=== PATIENT | female | born 1945 | race Caucasian/White ===

== ENCOUNTER 2017-04-13 21:51 | Observation (INO) ==
[2017-04-13 22:42] LABS: Basophils # 0.1 K/mcL (0.0-0.2); Basophils % 0.5 %; Eosinophils # 0.1 K/mcL (0.0-0.6); Eosinophils % 1.2 %; Hematocrit 45.3 % (35.3-44.9); Hemoglobin 15.4 g/dL (11.5-15.4); Immature Granulocytes % 0.4 % (0-4); Immature Platelets 2.1 % (1.1-6.1); Lymphocytes # 2.4 K/mcL (0.6-4.6); Mean Corpuscular Hemoglobin 30.7 pg (28.0-33.3); Mean Corpuscular Volume 90.2 fL (83.0-100.0); Mean Platelet Volume 8.7 fL (9.4-12.4); Monocytes % 8.5 %; Neutrophils # 7.8 K/mcL (1.6-8.9); Platelet Count 362 K/mcL (140-400); Red Blood Count 5.02 M/mcL (3.82-4.97); Segmented Neutrophils % 68.4 %
[2017-04-13 22:55] LABS: Alanine Aminotransferase 11 Units/L (0-55); Albumin 4.1 g/dL (3.5-5.0); Albumin/Globulin Ratio 1.1 (1.1-2.2); Alkaline Phosphatase 85 Units/L (38-126); Amylase 60 Units/L (25-125); Aspartate Amino Transferase 17 Units/L (5-34); BUN/Creatinine Ratio 19 (6-26); Bilirubin,Direct 0.2 mg/dL (0.0-0.5); Bilirubin,Indirect 0.3 mg/dL (0.0-1.2); Bilirubin,Total 0.5 mg/dL (0.2-1.2); Blood Urea Nitrogen 13 mg/dL (7-20); Carbon Dioxide 31 mEq/L (19-29); Chloride 98 mEq/L (98-109); Globulin 3.6 g/dL (2.4-3.5); Glucose 108 mg/dL (70-99); Lipase 35 Units/L (8-78); Osmolality,Calculated 289 (280-300); Potassium 4.4 mEq/L (3.5-4.5); Sodium 139 mEq/L (136-145); Total Protein 7.7 g/dL (6.0-8.3); eGFR For African Americans > 60 (> 60); eGFR For Non-African Americans > 60 (> 60)
[2017-04-13] MEDS ORDERED: 0.9 % Sodium Chloride 1,000 ML IVC ONE (22:58)
[2017-04-13] MEDS ORDERED: *HR* HYDROmorphone (PF) 1 MG/ML SYRINGE IVP ONE (22:58)
[2017-04-13] MEDS ORDERED: Pantoprazole 80 MG in 0.9 % Sodium Chloride 50 ML IVPB ONE (22:59)
[2017-04-13] MEDS ORDERED: Ondansetron 4 MG/2 ML VIAL IVP ONE (22:59)
[2017-04-13] MEDS ORDERED: GI Cocktail 40 ML EACH PO ONE (23:00)
[2017-04-13 23:11] LABS: Bilirubin,Urine Negative (Negative); Blood,Urine Negative (Negative); Clarity,Urine Clear (Clear); Color,Urine Yellow (Yellow); Glucose,Urine (UA) Normal (Normal); Ketones,Urine Negative (Negative); Leukocyte Esterase,Urine Small (Negative); Nitrite,Urine Negative (Negative); Protein,Urine Negative (Neg-Trace); Specific Gravity,Urine 1.018 (1.010-1.025); Urobilinogen,Urine Normal (Normal)
[2017-04-13 23:13] LABS: Bacteria,Urine None Seen per hpf (None-Few); Hyaline Casts,Urine None Seen per lpf (None-Few); Squamous Epithelial Cell,Urine Many per lpf (None-Few)
--- NOTE | 2017-04-14 02:03 | Emergency Department Note ---
Disposition Clinical Impression: Pancreatic mass Disposition: Admitted As Inpatient Condition: Fair Abdominal Pain HPI - General Chief Complaint: ED Abdominal Pain Stated Complaint: abd pain Time Seen by Provider: 04/13/17 22:43 Source: patient Mode of arrival: ambulatory Limitations: no limitations Nursing Notes Reviewed: Yes Vital Signs Reviewed: Yes - History of Present Illness HPI Narrative: Patient here for evaluation of epigastric pain, nausea, anorexia. Patient states that she has had symptoms since January when she fell and had some trauma to the epigastric region. Patient states that symptoms started to improve but they have gotten worse without resolution. She initially had improvement with ibuprofen and Aleve but has been taking ibuprofen 800 mg tablets 3 times a day as well as Aleve 5 tablets every day. Initial concern was for possible ulcer. Patient states that even the thought of food will sometimes make her stomach sick. She is been using ensure as her main source of nutrition over the last several weeks. She follows with a nurse practitioner and states that she recently had a CT scan as well as an MRI approximately a month ago. She is not sure what they were for what they found. Pain Scale: 8 - Related Data Allergies Allergy/AdvReac Type Severity Reaction Status Date / Time No Known Allergies Allergy Verified 04/13/17 22:17 Review of Systems: CONSTITUTIONAL: No weight loss, fever, chills, weakness or fatigue. HEENT: Eyes: No visual changes. Ears, Nose, Throat: No hearing loss, difficulty talking or unable to swallow. SKIN: No rash or itching. CARDIOVASCULAR: No chest pain, chest pressure or chest discomfort. No palpitations or edema. RESPIRATORY: No shortness of breath, cough or sputum. GASTROINTESTINAL: Nausea, anorexia, abdominal pain GENITOURINARY: No burning on urination or hematuria. NEUROLOGICAL: No headache, dizziness, syncope, paralysis, ataxia, numbness or tingling in the extremities. No change in bowel or bladder control. MUSCULOSKELETAL: Back pain Abdominal Pain PMH - Past Medical History Medical history: Reports: non-contributory Female Surgical History: Reports: Psychiatric history: Reports: no psych history - Social History Smoking status: Current every day smoker Alcohol use: Reports: rarely Drug use: Reports: none Physical Exam General appearance: NAD, conversant Eyes: anicteric sclerae, moist conjunctivae; PERRL HENT: Atraumatic; oropharynx clear with moist mucous membranes and no mucosal ulcerations Neck: Normal inspection; Trachea midline; FROM, supple Lungs: CTA, with normal respiratory effort and no intercostal retractions CV: RRR, no MRGs Abdomen: Soft, epigastric tenderness with no rebound or guarding Extremities: No peripheral edema or extremity lymphadenopathy Skin: Normal temperature; no rash, ulcers or lesions Psych: Appropriate mood and affect Neuro: alert and oriented to person, place and time - General Limitations: no limitations General appearance: alert Course - Reevaluation(s) Reevaluation #1: CT scan ordered to further evaluate possible perforated viscus as she has a clinical history concerning for peptic ulcer and diffuse abdominal pain with radiation to the back and worse with deep breaths. CT scan is now concerning for a new mass within the pancreas that could be related to atypical pancreatitis versus neoplastic process. She also has a lesion within the liver that MRI related to possible hemangioma. She has got 10 mm lung nodule with adenopathy. Patient overall concern for possible metastatic process. Patient will be brought in for further evaluation. - Consultations Consultation #1: HospitalistSaul, accepts Vital Signs Temperature 97.9 F 04/13/17 22:17 Pulse Rate 85 04/13/17 22:17 Respiratory Rate 16 04/13/17 22:17 Blood Pressure 116/64 04/13/17 22:17 O2 Sat by Pulse Oximetry 94 04/13/17 22:17 Temperature 97.9 F 04/13/17 22:17 Pulse Rate 72 04/14/17 03:03 Respiratory Rate 16 04/14/17 03:03 Blood Pressure 110/59 04/14/17 03:03 O2 Sat by Pulse Oximetry 94 04/14/17 03:03 Oxygen Delivery Oxygen Delivery Room Air Abdominal Pain - Lab Data Result diagrams: 04/13/17 22:35 04/13/17 22:35 Lab Results 04/13/17 04/13/17 04/13/17 Range/Units 22:35 22:35 22:58 WBC 11.4 H (4.3-11.1) K/mcL RBC 5.02 H (3.82-4.97) M/mcL Hgb 15.4 (11.5-15.4) g/dL Hct 45.3 H (35.3-44.9) % MCV 90.2 (83.0-100.0) fL MCH 30.7 (28.0-33.3) pg MCHC 34.0 (31.6-35.5) g/dL RDW 13.0 (11.5-14.5) % Plt Count 362 (140-400) K/mcL MPV 8.7 L (9.4-12.4) fL Immature Gran % 0.4 (0-4) % Seg Neutrophils % 68.4 % Lymphocytes % 21.0 % Monocytes % 8.5 % Eosinophils % 1.2 % Basophils % 0.5 % Neutrophils # 7.8 (1.6-8.9) K/mcL Lymphocytes # 2.4 (0.6-4.6) K/mcL Monocytes # 1.0 (0.0-1.3) K/mcL Eosinophils # 0.1 (0.0-0.6) K/mcL Basophils # 0.1 (0.0-0.2) K/mcL Immature Plt Fraction 2.1 (1.1-6.1) % Sodium 139 (136-145) mEq/L Potassium 4.4 (3.5-4.5) mEq/L Chloride 98 (98-109) mEq/L Carbon Dioxide 31 H (19-29) mEq/L BUN 13 (7-20) mg/dL Creatinine 0.70 (0.57-1.11) mg/dL Est GFR ( Amer) > 60 (> 60) Est GFR (Non-Af Amer) > 60 (> 60) BUN/Creatinine Ratio 19 (6-26) Glucose 108 H (70-99) mg/dL Calculated Osmolality 289 (280-300) Calcium 11.0 H (8.6-10.8) mg/dL Total Bilirubin 0.5 (0.2-1.2) mg/dL Direct Bilirubin 0.2 (0.0-0.5) mg/dL Indirect Bilirubin 0.3 (0.0-1.2) mg/dL AST 17 (5-34) Units/L ALT 11 (0-55) Units/L Alkaline Phosphatase 85 (38-126) Units/L Serum Total Protein 7.7 (6.0-8.3) g/dL Albumin 4.1 (3.5-5.0) g/dL Globulin 3.6 H (2.4-3.5) g/dL Albumin/Globulin Ratio 1.1 (1.1-2.2) Amylase 60 (25-125) Units/L Lipase 35 (8-78) Units/L Urine Color Yellow (Yellow) Urine Clarity Clear (Clear) Urine pH 6.0 (5.0-8.0) pH Units Ur Specific [place] 1.018 (1.010-1.025) Urine Protein Negative (Neg-Trace) mg/dL Urine Glucose (UA) Normal (Normal) mg/dL Urine Ketones Negative (Negative) mg/dL Urine Blood Negative (Negative) Urine Nitrite Negative (Negative) Urine Bilirubin Negative (Negative) Urine Urobilinogen Normal (Normal) mg/dL Ur Leukocyte Esterase Small H (Negative) Urine Microscopic RBC 3-5 H (0-3) per hpf Urine Microscopic WBC 5-15 H (0-3) per hpf Ur Squamous Epith Cells Many H (None-Few) per lpf Urine Bacteria None Seen (None-Few) per hpf Hyaline Casts None Seen (None-Few) per lpf Ur Culture Indicated? YES A (NO) Attestation Statement - Attestation Attestation: I, Reynold Aguila MD, personally evaluated this patient and discussed their management with the resident physician. I reviewed the resident's note and agree with the documented findings, medical decision making, and plan of care. 71-year-old female presents to the emergency department with a complaint of some epigastric abdominal pain which is been going on for a few months but worse over the past week. Some nausea and a few episodes of vomiting. No fever. No diarrhea. No melena, hematemesis, or hematochezia. No urinary symptoms. On examination patient is a well-developed thin elderly female in no acute distress. She is alert and oriented 3. There is no cyanosis or diaphoresis. Smells very strongly of cigarette smoke. Breath sounds are decreased but equal bilaterally. There are a few scattered bilateral expiratory wheezes. Heart regular rate and rhythm. Abdomen soft with normal bowel sounds. Mild to moderate epigastric tenderness with no guarding or rebound tenderness. Labs reviewed. CT of abdomen and pelvis shows a new mass in the body and tail of the pancreas as well as a new lesion in the liver suspicious for metastatic disease. Also some nodules in lung bases suspicious for metastatic disease. The hospitalist, Dr. Choudhury, was consulted and accepted admission of the patient.
[2017-04-14] MEDS ORDERED: *HR* HYDROmorphone (PF) 1 MG/ML SYRINGE IVP ONE (03:39)
[2017-04-14] MEDS ORDERED: Naloxone 0.4 MG/ML INJ IVP PRN (03:47)
[2017-04-14] MEDS ORDERED: *HR* Dextrose 50 % in Water (Syg) 50 ML SYRINGE IVP PRN (03:53)
[2017-04-14] MEDS ORDERED: Dextrose Gel 15 GM PO PRN ×2 (03:53)
[2017-04-14] MEDS ORDERED: D5% in Water 1,000 ML IVC PRN (03:53)
--- NOTE | 2017-04-14 05:05 | Internal Med History&Physical ---
Date of Encounter: 04/14/17 Time of Encounter: 04:30 Assessment and Plan (1) Pancreatic mass Current visit: Yes Status: Acute Newly diagnosed ill-defined pancreatic mass seen on CT abdomen - possible pancreatitis - causing nausea and vomiting and abdominal pain Concern for metastatic disease to the liver and lungs Continue IV fluids, nothing by mouth Lipase 35 CT chest to further evaluate metastasis to the lung Oncology consult (2) UTI (urinary tract infection) Current visit: Yes Status: Acute Empiric IV Rocephin, cultures pending Qualifiers: Urinary tract infection type: acute cystitis Hematuria presence: without hematuria Qualified Code(s): N30.00 - Acute cystitis without hematuria (3) Tobacco abuse Current visit: Yes Status: Acute Smokes about half-pack cigarettes a day, counseled about cessation Nicotine patch (4) DVT prophylaxis Current visit: Yes Status: Acute Continue heparin subcutaneous Internal Medicine - H&P: HPI Chief complaint: Abdominal pain Admitted From: Emergency Dept History of present illness: Ms. Canas is a 71 year old female with no significant past medical history. She presents to the ED with complaints of abdominal pain and nausea for about 2 days ago. Patient states symptoms of abdominal pain have been going on intermittently for about 1 month. Over the past 2 days abdominal pain and nausea have worsened. Patient states her PO intake is very poor and she is not able to keep anything down. She seems to have had several episodes of vomiting as well. Patient denies diarrhea, states that she is constipated. Denies chest pain and denies shortness of breath denies palpitations denies headache or lightheadedness or cough. She states abnormal pain is mainly in the epigastric region and dull and cramping at times. Does not radiate. He rates the pain about 5 out of 10. No other associated symptoms. She does mention that in January she had a fall and had some trauma to the epigastric region and symptoms have been going on probably since then. Symptoms are worse with food intake. No alleviating factors. She had an MRI of the abdomen done about a month ago which showed a liver hemangioma. Today's CT scan of the abdomen shows a ill-defined mass of the pancreatic body and tail. There is also concern for a vague hypodense lesion of the right hepatic dome which could be metastatic. There are also lung nodules at the base which may also represent metastatic disease. On examination patient is awake and alert. Not in any distress. She is in discomfort due to nausea and abdominal pain. She is able to provide HISTORY. No family members at bedside. Patient has been explained about her condition and plan Of care. She understood and agreed, no unanswered questions. Patient is being admitted for further evaluation of pancreatic mass and possible metastatic disease. CODE STATUS full code. Past Med Surg Social Fam HX - Past Medical History Medical history: non-contributory Psychiatric history: no psych history - Past Surgical History Surgical History: - Social History Smoking Status: Current every day smoker Smokeless Tobacco Status: No Alcohol use: rarely Drug use: none Internal Medicine - H&P: Meds Allergies No Known Allergies Allergy (Verified 04/13/17 22:17) All Systems PM: A 10-system review of systems was performed and is negative for pertinent findings except as documented above in the HPI. - Constitutional Constitutional: fatigue, weakness, no fever(s) - EENT Eyes: no blurry vision, no loss of vision - Cardiovascular Cardiovascular ROS IM: no chest pain, no diaphoresis, no dyspnea, no dyspnea on exertion, no lightheadedness, no syncope - Respiratory Respiratory: no cough, no dyspnea, no dyspnea on exertion, no wheezing, no chest congestion - Gastrointestinal Gastrointestinal: abdominal pain, bloating, constipation, cramping, nausea, vomiting, no diarrhea, no hematochezia - Genitourinary Genitourinary: no dysuria - Musculoskeletal Musculoskeletal ROS IM: no arthralgias - Neurological Neurological ROS: no abnormal gait, no abnormal speech, no dizziness, no focal weakness, no numbness, no tingling - Constitutional Vitals: Temp Pulse Resp BP Pulse Ox 97.9 F 72 16 107/59 94 04/13/17 22:17 04/14/17 03:03 04/14/17 03:44 04/14/17 03:44 04/14/17 03:03 General appearance: Present: cachectic, A&O X 3, pleasant, no acute distress, underweight, answers questions appropriately - Head Head exam: Present: atraumatic - Eye Eye exam: Present: EOMI - ENT ENT exam: Present: mucous membranes dry - Neck Neck exam general surgery: Present: supple - Respiratory Respiratory exam: Present: CTAB. Absent: rales, rhonchi, wheezes, tachypnea - Cardiovascular Cardiovascular exam: Present: RRR, +S1, +S2 - GI/Abdominal GI/Abdominal exam: Present: soft, tenderness (Mild epigastric), no peritoneal signs. Absent: firm, guarding - Extremities Exam Extremities exam: Present: radial pulses palpable and symetrical. Absent: cyanotic, pedal edema, tenderness - Neurological Exam Neurological exam: Present: alert, oriented X3, no focal deficits Internal Med - H&P Results - Labs CBC & Chem 7: 04/13/17 22:35 04/13/17 22:35
[2017-04-14 05:39] LABS: Basophils % 0.6 %; Eosinophils # 0.2 K/mcL (0.0-0.6); Eosinophils % 2.1 %; Hematocrit 38.5 % (35.3-44.9); Hemoglobin 13.1 g/dL (11.5-15.4); Immature Granulocytes % 0.1 % (0-4); Lymphocytes # 2.7 K/mcL (0.6-4.6); Lymphocytes % 38.2 %; Mean Corpuscular Hemoglobin 30.8 pg (28.0-33.3); Mean Corpuscular Volume 90.6 fL (83.0-100.0); Mean Platelet Volume 9.4 fL (9.4-12.4); Monocytes # 0.7 K/mcL (0.0-1.3); Monocytes % 10.1 %; Neutrophils # 3.4 K/mcL (1.6-8.9); Platelet Count 310 K/mcL (140-400); Red Blood Count 4.25 M/mcL (3.82-4.97); Red Cell Distribution Width 13.2 % (11.5-14.5); Segmented Neutrophils % 48.9 %
[2017-04-14 05:40] LABS: INR 1.1; Prothrombin Time 11.9 Seconds (9.4-12.1)
[2017-04-14 05:47] LABS: Hemoglobin A1C 5.8 %
[2017-04-14 05:56] LABS: Alanine Aminotransferase 12 Units/L (0-55); Albumin 3.2 g/dL (3.5-5.0); Albumin/Globulin Ratio 1.1 (1.1-2.2); Alkaline Phosphatase 70 Units/L (38-126); Aspartate Amino Transferase 20 Units/L (5-34); BUN/Creatinine Ratio 19 (6-26); Bilirubin,Total 0.5 mg/dL (0.2-1.2); Blood Urea Nitrogen 12 mg/dL (7-20); Calcium 8.7 mg/dL (8.6-10.8); Carbon Dioxide 29 mEq/L (19-29); Chloride 104 mEq/L (98-109); Globulin 2.8 g/dL (2.4-3.5); Glucose 123 mg/dL (70-99); Magnesium 1.8 mg/dL (1.6-2.6); Osmolality,Calculated 291 (280-300); Potassium 3.9 mEq/L (3.5-4.5); Sodium 140 mEq/L (136-145); eGFR For African Americans > 60 (> 60); eGFR For Non-African Americans > 60 (> 60)
[2017-04-14] MEDS: 0.9 % Sodium Chloride 1,000 ML IVC SCH ×2 (06:27→22:12)
[2017-04-14] MEDS: *HR* Heparin 5,000 UNIT/ML VIAL SQ SCH ×2 (06:27→17:54)
[2017-04-14] MEDS: Insulin LISPRO 300 UNITS/3 ML VIAL SQ SCH ×4 (06:29→23:52)
[2017-04-14] MEDS: Famotidine 20 MG TABLET PO SCH ×2 (08:09→21:09)
[2017-04-14] MEDS: Nicotine 21 MG PATCH.TD24 TD SCH (08:11)
--- NOTE | 2017-04-14 09:59 | Internal Med Progress Note ---
Date of Encounter: 04/14/17 Time of Encounter: 09:57 - Assessment and plan (1) Abdominal pain Current Visit: Yes Status: Acute Qualifiers: Qualified Code(s): R10.9 - Unspecified abdominal pain (2) Pulmonary nodules/lesions, multiple Current Visit: Yes Status: Acute (3) Pancreatic mass Current Visit: Yes Status: Acute (4) DVT prophylaxis Current Visit: Yes Status: Acute (5) Nausea & vomiting Current Visit: Yes Status: Acute Qualifiers: Vomiting type: unspecified Vomiting Intractability: non-intractable Qualified Code(s): R11.2 - Nausea with vomiting, unspecified (6) UTI (urinary tract infection) Current Visit: Yes Status: Acute Qualifiers: Urinary tract infection type: acute cystitis Hematuria presence: without hematuria Qualified Code(s): N30.00 - Acute cystitis without hematuria (7) Tobacco abuse Current Visit: Yes Status: Acute - Subjective Interval history: Ms. Corinne Canas is a 71-year-old female with past medical history significant for smoking came to ER with 1-2 month olds recurrent symptoms of abdominal pain and nausea and more than 10% of body weight loss unintentionally. A CT chest done in ER showed possible lung pancreatic and liver suspected lesion. She previously had MRI of the abdomen which showed multiple hepatic cyst largest being 2.4 and also a new pancreatic mass for 0.2 6.1 cm which is surrounding the splenic vein and is in close proximity with the artery. There is a concern for metastatic disease. I have ordered a contrast CT chest abdomen and pelvis. Oncology consult is already pending. There was a concern if pancreatic lesion and also due to peripancreatic inflammation with this pancreatitis but her amylase and lipase are absolutely normal. Her UA showed leukocyte positive cultures are pending and she is on IV Rocephin. Oncology has consulted us and follow nephrology for possible pancreatic biopsy. - Constitutional Vitals: Temp Pulse Resp BP Pulse Ox 97.7 F 69 14 103/67 97 04/14/17 06:38 04/14/17 06:38 04/14/17 06:38 04/14/17 06:38 04/14/17 06:38 General appearance: Present: cachectic, A&O X 3, pleasant, no acute distress, underweight, answers questions appropriately - Head Head exam: Present: atraumatic, normocephalic - Eye Eye exam: Present: PERRL, conjuntiva pink, sclera anicteric Pupils: Present: PERRL - Neck Neck exam general surgery: Present: supple, trachea midline. Absent: lymphadenopathy - Respiratory Respiratory exam: Present: CTAB. Absent: accessory muscle use, rales, rhonchi, wheezes - Cardiovascular Cardiovascular exam: Present: RRR, +S1, +S2. Absent: diastolic murmur, gallop, rubs, systolic murmur - GI/Abdominal GI/Abdominal exam: Present: normal bowel sounds, soft, no peritoneal signs. Absent: distended, tenderness - Extremities Exam Extremities exam: Present: warm, radial pulses palpable and symetrical. Absent : calf tenderness, cyanotic, pedal edema - Neurological Exam Neurological exam: Present: CN II-XII intact, oriented X3, no focal deficits. Absent: pronater drift, facial droop, speech deficit - Skin Skin exam: Present: dry, intact Internal Medicine: Result - Labs CBC & Chem 7: 04/14/17 05:05 04/14/17 05:05 Labs: Short CBC 04/14/17 Range/Units 05:05 WBC 7.0 (4.3-11.1) K/mcL Hgb 13.1 D (11.5-15.4) g/dL Hct 38.5 (35.3-44.9) % Plt Count 310 (140-400) K/mcL Neutrophils # 3.4 (1.6-8.9) K/mcL BMP 04/14/17 05:05 Sodium 140 Potassium 3.9 Chloride 104 Carbon Dioxide 29 BUN 12 Creatinine 0.62 Glucose 123 H Calcium 8.7 D Liver Function 04/14/17 Range/Units 05:05 Total Bilirubin 0.5 (0.2-1.2) mg/dL AST 20 (5-34) Units/L ALT 12 (0-55) Units/L Alkaline Phosphatase 70 (38-126) Units/L Albumin 3.2 L D (3.5-5.0) g/dL - ABG Interpretation ABG results: PT/INR, D-dimer PT 11.9 Seconds (9.4-12.1) 04/14/17 05:05 - Impressions Impressions Chest CT 04/14/17 05:11 IMPRESSION: 1. Multiple pulmonary nodules are again demonstrated. Metastatic disease is most likely though inflammatory and infectious nodules could also be considered as these are poorly defined, an unusual finding in pulmonary metastases (unless hemorrhagic). 2. Left-sided thyroid nodule. Thyroid ultrasound could be considered for further evaluation in this patient with suspected metastatic pancreatic carcinoma. 3. Emphysema. D/ / Marc Garcia MD / Marc Garcia MD Interpreting Provider: Marc Garcai MD Consult Discharge Plan - Plan Referrals: NO,PCP [Primary Care Provider] -
--- NOTE | 2017-04-14 15:42 | Electrocardiograph Report ---
[place] [id number] Test Date: 2017-04-14 Pat Name: Corinne Canas Department: 115 Room: 3A Gender: F [employer]: 3A : 1945 Requested By: Ramon Dowd Order Number: [id number] Reading MD: Alek Pizarro MD Measurements Intervals [place] Rate: 60 P: 81 [place]: 158 QRS: 67 QRSD: 73 T: 72 QT: 405 QTc: 407 Interpretive Statements SINUS RHYTHM Electronically Signed On 04-14-2017 15:41:03 EDT by Alek Pizarro MD
[2017-04-14] MEDS: *HR* HYDROcodone/Acet 5/325 mg TABLET PO PRN (16:48)
--- NOTE | 2017-04-14 17:05 | Oncology Inp Consult Note ---
<Lindsay Walters E - Last Filed: 04/14/17 17:17> Date of Encounter: 04/14/17 Time of Encounter: 14:00 Assessment and Plan (1) Pancreatic mass Status: Acute Assessment and plan: Should be noted that the pancreas was normal in January 2017. At that time she did have an elevated lipase. We will order a CA-19-9, pancreatic tumor marker. We will also ask for consultation with regarding evaluation with possible biospy. (2) Tobacco abuse Status: Acute Assessment and plan: discussed risk of continued smoking, patient is not interested in cessation. - Data of Consult Patient: new to practice Consult date: 04/14/17 Requesting Physician: Jase Pryor MD Primary Care Provider: PCP NO - Consult Narrative Reason for consult: pancreatic mass History of present illness: Ms. Canas is a 71 year old female who recently presented to the [place] ED with epigastric pain, nausea and anorexia. SHe states this pain has been present for over 2 months, off and on but has recently gotten worse. SHe states pain started when she fell on a laundry basket while going up steps. The bascket hit just below breast. She reports that this pain radiates for the upper back to epigastric area or from the epigastric area to the upper back. Eating causes pain to increase. Vomiting helps relieve pain. She was seen by PCP in January of 2017. January 23, 2017, indicated age-indeterminate compression fracture involving these. Plate of L5. Indeterminate hepatic lesions with an MRI of the abdomen being recommended using the hemangioma protocol. The 2016, MRI of the abdomen with and without contrast indicated multiple nonenhancing liver lesions likely only rate representing cysts. The largest was located in segment for the liver and measured 2.2 cm. The gallbladder, pancreas, kidneys and adrenal glands were within normal limits. There was an enhancing 1.5 cm lesion in segment for the liver favorable for hemangioma. Most recently on 04/14/2017 CAT scan of the abdomen and pelvis indicated stable 1.7 cm segment 4 lesion which was felt to represent hemangioma on a previous MRI. A new 2.4 cm ill-defined vague hypodense lesion in the right hepatic dome. Also an ill-defined hypodense mass measuring 4.2 x 6.1 cm involving the pancreatic body and tail. This may represent atypical pancreatitis but is concerning for pancreatic adenocarcinoma. 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 There was also moderate peripancreatic inflammation which may represent superimposed pancreatitis. During this hospitalization the patient did have an amylase that was normal at 60 and a lipase normal at 35. She did have these tests also in January when her symptom biology started that time her amylase was 122 and lipase was 289. Patient is a smoker she smoked 1 pack a day for 30+ years and does not desire to stop smoking. She has no significant past medical history she does not take medications. At this time she states her diet is made up of Ensure 3-4 cans a day. She also reports that she has lost about 13 pounds unintentional. Past Med Surg Social Fam HX - Past Medical History Medical history: non-contributory, other (Denies having health problems other than seasonal allergies.) Psychiatric history: no psych history - Past Surgical History Surgical History: (Rate) - Social History Smoking Status: Current every day smoker Packs per day: 1/2 pack per day Smokeless Tobacco Status: No Alcohol use: rarely Drug use: none Occupational status: retired Current living situation: Home - Family History Mother Living Status: Age at : 76 Cause of : Heart Hx Family Cardiac Disorders: Yes (Heart Attack) Hx Family Endocrine Disorder: Yes (DM) Father Living Status: Age at : 77 Cause of : Kidney Disease - Additional Family History Additional family history: brother bone cancer Medications and Allergies Albuterol Neb [Proventil Neb] 2.5 mg IH TID PRN 04/14/17 [History] Ibuprofen [Motrin] 800 mg PO Q8HR PRN 04/14/17 [History] Ondansetron HCl [Zofran] 4 mg PO Q4-6H PRN 04/14/17 [History] Allergies No Known Allergies Allergy (Verified 04/13/17 22:17) All systems: reviewed and no additional remarkable complaints except as stated Constitutional: Present: weight loss Gastrointestinal: Present: abdominal pain, bloating, constipation, nausea, vomiting Musculoskeletal: Present: back pain Oncology - Exam - Constitutional Vitals: Temp Pulse Resp BP Pulse Ox 97.9 F 59 14 127/77 97 04/14/17 15:01 04/14/17 15:01 04/14/17 15:01 04/14/17 15:01 04/14/17 15:01 General appearance: cooperative, no acute distress - Head Head exam: Present: normal inspection - ENT ENT exam: Present: mucous membranes moist - Neck Neck exam: Present: normal inspection - Respiratory Respiratory exam: Present: CTAB - Cardiovascular Cardiovascular exam: Present: RRR - GI/Abdominal GI/Abdominal exam: Present: guarding, normal bowel sounds, soft Additional comments: Epigastric tenderness - Extremities Exam Extremities exam: Present: normal inspection - Back Exam Back exam: Present: normal inspection, vertebral tenderness - Psychiatric Psychiatric exam: Present: normal affect, normal mood - Skin Skin exam: Present: dry, intact, normal color Oncology - Results - Labs Labs: Short CBC 04/14/17 Range/Units 05:05 WBC 7.0 (4.3-11.1) K/mcL Hgb 13.1 D (11.5-15.4) g/dL Hct 38.5 (35.3-44.9) % Plt Count 310 (140-400) K/mcL Neutrophils # 3.4 (1.6-8.9) K/mcL BMP 04/14/17 05:05 Sodium 140 Potassium 3.9 Chloride 104 Carbon Dioxide 29 BUN 12 Creatinine 0.62 Glucose 123 H Calcium 8.7 D Liver Function 04/14/17 Range/Units 05:05 Total Bilirubin 0.5 (0.2-1.2) mg/dL AST 20 (5-34) Units/L ALT 12 (0-55) Units/L Alkaline Phosphatase 70 (38-126) Units/L Albumin 3.2 L D (3.5-5.0) g/dL Consult Discharge Plan - Plan Referrals: Kelsea Kauffman, PIPE COVERER AND INSULATOR [Advanced Practice Nurse] - <Don Robles S - Last Filed: 04/15/17 19:08> Date of Encounter: 04/15/17 - Data of Consult Requesting Physician: Tammy Reed MD Primary Care Provider: PCP NO - Consult Narrative History of present illness: Ms. Canas is a 71 year old female Oncology - Exam - Constitutional Vitals: Temp Pulse Resp BP Pulse Ox 98.7 F 78 15 119/67 98 04/15/17 15:56 04/15/17 15:56 04/15/17 15:56 04/15/17 15:56 04/15/17 15:56 Oncology - Results - Labs Labs: Short CBC 04/15/17 Range/Units 06:42 WBC 6.2 (4.3-11.1) K/mcL Hgb 12.6 (11.5-15.4) g/dL Hct 37.9 (35.3-44.9) % Plt Count 261 (140-400) K/mcL Neutrophils # 3.5 (1.6-8.9) K/mcL BMP 04/15/17 06:42 Sodium 140 Potassium 3.6 Chloride 106 Carbon Dioxide 26 BUN 12 Creatinine 0.58 Glucose 77 Calcium 8.4 L Liver Function 04/15/17 Range/Units 06:42 Total Bilirubin 0.4 (0.2-1.2) mg/dL AST 18 (5-34) Units/L ALT 11 (0-55) Units/L Alkaline Phosphatase 69 (38-126) Units/L Albumin 3.1 L (3.5-5.0) g/dL - Attending Attestation I examined this patient and my medical decision-making was reviewed with the Advanced Practice Nurse. I agree with the documented findings, disposition and treatment plan as described except to the extent set forth below. 1. CAT scan March 2017 showed ill-defined 4.2 cm mass hypodense body/tail of the pancreas. This was not seen by MRI liver January 2017. Also pancreatic ductal dilatation. Her lipase was elevated at 280 01/26/2017 but currently normal Also hepatic dome hemangioma about 1.7 cm. Recommend EUS biopsy to assess the hypodense mass. CA 19-9 pending. Further treatment recommendation after the biopsy
[2017-04-15] MEDS: *HR* HYDROcodone/Acet 5/325 mg TABLET PO PRN ×4 (01:36→22:13)
[2017-04-15] MEDS: Insulin LISPRO 300 UNITS/3 ML VIAL SQ SCH ×3 (05:41→17:51)
[2017-04-15] MEDS: *HR* Heparin 5,000 UNIT/ML VIAL SQ SCH ×2 (05:43→17:49)
[2017-04-15 07:07] LABS: Basophils % 0.5 %; Eosinophils # 0.1 K/mcL (0.0-0.6); Eosinophils % 1.1 %; Hematocrit 37.9 % (35.3-44.9); Hemoglobin 12.6 g/dL (11.5-15.4); Immature Granulocytes % 0.2 % (0-4); Mean Corpuscular HGB Conc 33.2 g/dL (31.6-35.5); Mean Corpuscular Hemoglobin 30.4 pg (28.0-33.3); Mean Corpuscular Volume 91.3 fL (83.0-100.0); Mean Platelet Volume 9.3 fL (9.4-12.4); Monocytes # 0.5 K/mcL (0.0-1.3); Monocytes % 8.1 %; Neutrophils # 3.5 K/mcL (1.6-8.9); Platelet Count 261 K/mcL (140-400); Red Blood Count 4.15 M/mcL (3.82-4.97); Segmented Neutrophils % 57.1 %
[2017-04-15 07:22] LABS: Alanine Aminotransferase 11 Units/L (0-55); Albumin 3.1 g/dL (3.5-5.0); Albumin/Globulin Ratio 1.1 (1.1-2.2); Alkaline Phosphatase 69 Units/L (38-126); Aspartate Amino Transferase 18 Units/L (5-34); BUN/Creatinine Ratio 21 (6-26); Bilirubin,Total 0.4 mg/dL (0.2-1.2); Blood Urea Nitrogen 12 mg/dL (7-20); Calcium 8.4 mg/dL (8.6-10.8); Carbon Dioxide 26 mEq/L (19-29); Chloride 106 mEq/L (98-109); Globulin 2.7 g/dL (2.4-3.5); Glucose 77 mg/dL (70-99); Osmolality,Calculated 289 (280-300); Potassium 3.6 mEq/L (3.5-4.5); Sodium 140 mEq/L (136-145); Total Protein 5.8 g/dL (6.0-8.3); eGFR For African Americans > 60 (> 60); eGFR For Non-African Americans > 60 (> 60)
[2017-04-15] MEDS: Nicotine 21 MG PATCH.TD24 TD SCH (08:21)
[2017-04-15] MEDS: Famotidine 20 MG TABLET PO SCH ×2 (08:21→20:45)
--- NOTE | 2017-04-15 14:15 | Gastroenterology Consult Note ---
<EstevezPorfirio Houston - Last Filed: 04/15/17 14:13> Date of Encounter: 04/15/17 Time of Encounter: 11:50 - Assessment and plan (1) Pancreatic mass Current Visit: Yes Status: Acute Assessment and plan: CT A/P 01/23/2017 with indeterminate hepatic lesions. MRI 01/27/2017 showed a liver hemangioma. CT A/P on admission shows a ill-defined mass of the pancreatic body and tail, concern for a vague hypodense lesion of the right hepatic dome which could be metastatic, there are also lung nodules at the base which may also represent metastatic disease. Plan for EUS today with possible biopsy. Keep NPO. CA 19-9 pending. (2) Abdominal pain Current Visit: Yes Status: Acute Assessment and plan: Secondary to pancreatic mass. Qualifiers: Qualified Code(s): R10.9 - Unspecified abdominal pain - Time Spent With Patient Total time spent is greater than 50% in coordination of care (as documented) at patient's floor/unit and/or counseling patient: GI History of Present Illness - Data of Consult Patient: new to practice Consult date: 04/15/17 Requesting Physician: Tammy Reed MD - Consult Narrative Reason for consult: Pancreatic mass History of present illness: Ms. Canas is a 71 year old female with no significant PMHx presented to the ED with c/o epigastric abdominal pain, nausea, and vomiting for 2 days. Patient states symptoms of abdominal pain have been going on intermittently for about 1 month. Over the past 2 days abdominal pain and nausea have worsened. CT A/P 01/23 with indeterminate hepatic lesions. MRI 01/27/2017 showed a liver hemangioma. CT A/P on admission shows a ill-defined mass of the pancreatic body and tail, concern for a vague hypodense lesion of the right hepatic dome which could be metastatic, there are also lung nodules at the base which may also represent metastatic disease. She denies fever, chills, chest pain, shortness of breath, melena, or hematochezia. Procedures: None NSAIDs: Ibuprofen Anticoagulation: None Past Med Surg Social Fam HX - Past Medical History Medical history: non-contributory, other (Denies having health problems other than seasonal allergies.) Psychiatric history: no psych history - Past Surgical History Surgical History: (Rate) - Social History Smoking Status: Current every day smoker Packs per day: 1/2 pack per day Smokeless Tobacco Status: No Alcohol use: rarely Drug use: none - Family History Mother Living Status: Age at : 76 Cause of : Heart Hx Family Cardiac Disorders: Yes (Heart Attack) Hx Family Endocrine Disorder: Yes (DM) Father Living Status: Age at : 77 Cause of : Kidney Disease - Gastrointestinal Gastrointestinal: Present: as per HPI - Constitutional Constitutional: as per HPI - EENT Eyes: as per HPI Ears: Present: as per HPI Nose, mouth and throat: Present: as per HPI - Cardiovascular Cardiovascular ROS: Present: as per HPI - Respiratory Respiratory IM: Present: as per HPI - Genitourinary Genitourinary: Absent: change in color, Urinary frequency - Neurological ROS Neurological GI: Present: as per HPI - Hematologic/Lymphatic Hematologic/Lymphatic pediatric: Present: as per HPI - Musculoskeletal Musculoskeletal ROS GI: Present: as per HPI - Integumentary Integumentary GI: Present: as per HPI - Psychiatric ROS Psychiatric GI: Present: as per HPI - Endocrine Endocrine IM: Present: as per HPI - Constitutional Vitals: Temp Pulse Resp BP Pulse Ox 98.2 F 68 14 108/63 98 04/15/17 11:08 04/15/17 11:08 04/15/17 11:08 04/15/17 11:08 04/15/17 11:08 General appearance: Present: cooperative, A&O X 3, no acute distress, answers questions appropriately - Head Head exam: Present: atraumatic, normocephalic - Eye Eye exam: Present: normal appearance, sclera anicteric - ENT ENT exam: Present: mucous membranes dry - Neck Neck exam general surgery: Present: normal inspection, trachea midline - Respiratory Respiratory exam: Present: CTAB. Absent: rales, rhonchi - Cardiovascular Cardiovascular exam: Present: RRR, +S1, +S2 - GI/Abdominal GI/Abdominal exam: Present: guarding, soft, tenderness (Epigastric), no peritoneal signs. Absent: distended, firm - Rectal Rectal exam: Present: deferred - Extremities Exam Extremities exam: Present: warm - Neurological Exam Neurological exam: Present: no focal deficits - Psychiatric Psychiatric exam: Present: normal affect, normal mood - Skin Skin exam: Present: dry, intact, normal color, warm Results - Labs CBC & Chem 7: 04/15/17 06:42 04/15/17 06:42 Labs: Last Result Calcium 8.4 mg/dL (8.6-10.8) L 04/15/17 06:42 Entire Visit Hgb 12.6 g/dL (11.5-15.4) 04/15/17 06:42 Hct 37.9 % (35.3-44.9) 04/15/17 06:42 PT 11.9 Seconds (9.4-12.1) 04/14/17 05:05 Total Bilirubin 0.4 mg/dL (0.2-1.2) 04/15/17 06:42 AST 18 Units/L (5-34) 04/15/17 06:42 ALT 11 Units/L (0-55) 04/15/17 06:42 Amylase 60 Units/L (25-125) 04/13/17 22:35 Lipase 35 Units/L (8-78) 04/13/17 22:35 - ABG ABG results: PT/INR, D-dimer PT 11.9 Seconds (9.4-12.1) 04/14/17 05:05 Consult Discharge Plan - Plan Referrals: Kelsea Kauffman, SOLUTION MIXER [Advanced Practice Nurse] - <Da Sanches - Last Filed: 04/15/17 18:51> Date of Encounter: 04/15/17 Time of Encounter: 14:00 - Time Spent With Patient Total time spent is greater than 50% in coordination of care (as documented) at patient's floor/unit and/or counseling patient: GI History of Present Illness - Data of Consult Requesting Physician: Tammy Reed MD - Consult Narrative History of present illness: Ms. Canas is a 71 year old female - Constitutional Vitals: Temp Pulse Resp BP Pulse Ox 98.7 F 78 15 119/67 98 04/15/17 15:56 04/15/17 15:56 04/15/17 15:56 04/15/17 15:56 04/15/17 15:56 Results - Labs CBC & Chem 7: 04/15/17 06:42 04/15/17 06:42 Labs: Last Result Calcium 8.4 mg/dL (8.6-10.8) L 04/15/17 06:42 Entire Visit Hgb 12.6 g/dL (11.5-15.4) 04/15/17 06:42 Hct 37.9 % (35.3-44.9) 04/15/17 06:42 PT 11.9 Seconds (9.4-12.1) 04/14/17 05:05 Total Bilirubin 0.4 mg/dL (0.2-1.2) 04/15/17 06:42 AST 18 Units/L (5-34) 04/15/17 06:42 ALT 11 Units/L (0-55) 04/15/17 06:42 Amylase 60 Units/L (25-125) 04/13/17 22:35 Lipase 35 Units/L (8-78) 04/13/17 22:35 - ABG ABG results: PT/INR, D-dimer PT 11.9 Seconds (9.4-12.1) 04/14/17 05:05 - Attending Attestation I examined this patient and my medical decision-making was reviewed with the BREWERY REPRESENTATIVE/PA/Advanced Practice Nurse/Resident Physician. I agree with the documented findings, disposition and treatment plan as described except to the extent set forth below.
--- NOTE | 2017-04-15 15:50 | Internal Med Progress Note ---
Date of Encounter: 04/15/17 Time of Encounter: 11:00 - Assessment and plan (1) Pancreatic mass Current Visit: Yes Status: Acute Assessment and plan: Unclear etiology, could be related to pancreatitis versus mass. Oncology consult noted, follow-up tumor markers. GI consult appreciated, plan for EUS with biopsy today. IV hydration and supportive care. (2) UTI (urinary tract infection) Current Visit: Yes Status: Suspected Assessment and plan: Urinalysis suggestive of UTI and patient received IV Rocephin. Urine culture shows no significant growth, hold antibiotics at this time. Qualifiers: Urinary tract infection type: acute cystitis Hematuria presence: without hematuria Qualified Code(s): N30.00 - Acute cystitis without hematuria (3) Abdominal pain Current Visit: Yes Status: Chronic Assessment and plan: Ongoing abdominal pain for at least 2 months. Related to pancreatitis versus pancreatic mass. Pain control with when necessary oral Percocet at this time. Diet as tolerated after GI procedure today. Qualifiers: Abdominal location: epigastric Qualified Code(s): R10.13 - Epigastric pain (4) Pulmonary nodules/lesions, multiple Current Visit: Yes Status: Acute - Subjective Interval history: Improving abdominal pain. No nausea, emesis, diarrhea. - Constitutional Vitals: Temp Pulse Resp BP Pulse Ox 98.2 F 68 14 108/63 98 04/15/17 11:08 04/15/17 11:08 04/15/17 11:08 04/15/17 11:08 04/15/17 11:08 General appearance: Present: A&O X 3, underweight, answers questions appropriately - Respiratory Respiratory exam: Present: CTAB. Absent: accessory muscle use, rales, rhonchi, wheezes - Cardiovascular Cardiovascular exam: Present: RRR, +S1, +S2. Absent: diastolic murmur, gallop, rubs, systolic murmur - GI/Abdominal GI/Abdominal exam: Present: normal bowel sounds, soft (Epigastric and left upper quadrant tenderness. No guarding or rigidity.), no peritoneal signs. Absent: distended, tenderness Internal Medicine: Result - Labs CBC & Chem 7: 04/15/17 06:42 04/15/17 06:42 Labs: Short CBC 04/15/17 Range/Units 06:42 WBC 6.2 (4.3-11.1) K/mcL Hgb 12.6 (11.5-15.4) g/dL Hct 37.9 (35.3-44.9) % Plt Count 261 (140-400) K/mcL Neutrophils # 3.5 (1.6-8.9) K/mcL BMP 04/15/17 06:42 Sodium 140 Potassium 3.6 Chloride 106 Carbon Dioxide 26 BUN 12 Creatinine 0.58 Glucose 77 Calcium 8.4 L Liver Function 04/15/17 Range/Units 06:42 Total Bilirubin 0.4 (0.2-1.2) mg/dL AST 18 (5-34) Units/L ALT 11 (0-55) Units/L Alkaline Phosphatase 69 (38-126) Units/L Albumin 3.1 L (3.5-5.0) g/dL - ABG Interpretation ABG results: PT/INR, D-dimer PT 11.9 Seconds (9.4-12.1) 04/14/17 05:05 Consult Discharge Plan - Plan Referrals: Kelsea Kauffman, EMBLEM FUSER TENDER [Advanced Practice Nurse] -
[2017-04-15] MEDS: 0.9 % Sodium Chloride 1,000 ML IVC SCH (19:52)
[2017-04-16] MEDS: Insulin LISPRO 300 UNITS/3 ML VIAL SQ SCH ×2 (00:01→06:14)
[2017-04-16] MEDS: *HR* Heparin 5,000 UNIT/ML VIAL SQ SCH ×2 (06:13→18:39)
[2017-04-16] MEDS: *HR* HYDROcodone/Acet 5/325 mg TABLET PO PRN ×2 (06:17→18:39)
[2017-04-16 07:51] LABS: Basophils # 0.1 K/mcL (0.0-0.2); Basophils % 0.8 %; Eosinophils % 0.3 %; Hematocrit 39.7 % (35.3-44.9); Hemoglobin 13.1 g/dL (11.5-15.4); Immature Granulocytes % 0.5 % (0-4); Lymphocytes # 1.3 K/mcL (0.6-4.6); Lymphocytes % 19.5 %; Mean Corpuscular Hemoglobin 29.9 pg (28.0-33.3); Mean Corpuscular Volume 90.6 fL (83.0-100.0); Mean Platelet Volume 9.6 fL (9.4-12.4); Monocytes # 0.6 K/mcL (0.0-1.3); Monocytes % 8.3 %; Neutrophils # 4.7 K/mcL (1.6-8.9); Platelet Count 265 K/mcL (140-400); Red Blood Count 4.38 M/mcL (3.82-4.97); Red Cell Distribution Width 12.8 % (11.5-14.5); Segmented Neutrophils % 70.6 %
[2017-04-16 08:02] LABS: Alanine Aminotransferase 10 Units/L (0-55); Albumin 3.4 g/dL (3.5-5.0); Albumin/Globulin Ratio 1.1 (1.1-2.2); Alkaline Phosphatase 77 Units/L (38-126); Aspartate Amino Transferase 17 Units/L (5-34); BUN/Creatinine Ratio 20 (6-26); Bilirubin,Total 0.5 mg/dL (0.2-1.2); Blood Urea Nitrogen 12 mg/dL (7-20); Carbon Dioxide 18 mEq/L (19-29); Chloride 105 mEq/L (98-109); Globulin 3.2 g/dL (2.4-3.5); Glucose 63 mg/dL (70-99); Osmolality,Calculated 282 (280-300); Potassium 3.7 mEq/L (3.5-4.5); Sodium 137 mEq/L (136-145); Total Protein 6.6 g/dL (6.0-8.3); eGFR For African Americans > 60 (> 60); eGFR For Non-African Americans > 60 (> 60)
[2017-04-16] MEDS: Famotidine 20 MG TABLET PO SCH ×2 (08:23→20:53)
--- NOTE | 2017-04-16 08:23 | Electrocardiograph Report ---
[place] [id number] Test Date: 2017-04-14 Pat Name: Corinne Canas Department: 115 Room: 3A Gender: F Cloth Piecer: 3A : 1945 Requested By: Mere Reed Order Number: [id number] Reading MD: Alek Pizarro MD Measurements Intervals [place] Rate: 57 P: 84 [place]: 158 QRS: 69 QRSD: 76 T: 66 QT: 407 QTc: 402 Interpretive Statements SINUS BRADYCARDIA BASELINE ARTIFACT Electronically Signed On 04-16-2017 8:21:53 EDT by Alek Pizarro MD
[2017-04-16] MEDS: Nicotine 21 MG PATCH.TD24 TD SCH (08:32)
[2017-04-16] MEDS ORDERED: *HR* Succinylcholine 200 MG/10 ML VIAL IVP ONE (09:18)
[2017-04-16] MEDS ORDERED: Ondansetron 4 MG/2 ML VIAL IVP ONE (09:18)
[2017-04-16] MEDS ORDERED: *HR* Propofol 200 MG/20 ML VIAL IVP ONE (09:18)
[2017-04-16] MEDS ORDERED: Lidocaine -MPF 2% 5 ML VIAL INFILT ONE (09:18)
[2017-04-16] MEDS: Ondansetron 4 MG/2 ML VIAL IVP PRN ×2 (10:11→18:39)
--- NOTE | 2017-04-16 14:27 | Anesthesia Evaluation PreOp ---
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 History: Denies Any Significant HX Other Medical History: Other (abdominal pain with pancreatic mass of body and tail) Anesthesia History: No Prior Anesthetic Complications, Past Anesthesia (c/s) : No Alcohol Use: rarely Drug use: none Medications and Allergies Albuterol Neb [Proventil Neb] 2.5 mg IH TID PRN 04/14/17 [History] Ibuprofen [Motrin] 800 mg PO Q8HR PRN 04/14/17 [History] Ondansetron HCl [Zofran] 4 mg PO Q4-6H PRN 04/14/17 [History] Allergies No Known Allergies Allergy (Verified 04/13/17 22:17) - Meds/Allergy Pre-op Review Medications Reviewed: Yes Allergies Reviewed: Yes Beta Blockers on Current Med List: No Anesthesia Results - Labs 04/16/17 06:59 04/16/17 06:59 Anesthesia Exam Selected Entries 04/16/17 11:22 Temperature 97.7 F Pulse Rate 89 Respiratory Rate 15 Blood Pressure 129/63 O2 Sat by Pulse Oximetry 98 Weight: 46kg - HEENT Pupil (Motor): EOMI Mallampati: III Teeth: Normal Oral Opening: Less than or equal to 3 - SUPERVISOR TRA[employer]PER[employer] LOC: Oriented SUPERVISOR TRA[employer]PERATIONS Motor: Normal RUE, Normal LUE, Normal RLE, Normal LLE, Normal Face [employer]PERVISOR TRA[employer]PERATIONS Sensory: Normal: RUE, LUE, RLE, LLE, Face - Cardiac Rhythm: Regular Murmur: None - Pulmonary Breath Sounds: bilateral Clear Respiratory Effort: Symmetrical Anesthesia Assess/Plan ASA Score: 2 Modified [place] Scale for Level of Consciousness: Cooperative, oriented, and tranquil Anesthetic Plan: General Monitoring Plan: Standard Monitors Recovery Plan: PACU (discussed GA with the patient, questions answered and agrees to proceed)
[2017-04-16] MEDS ORDERED: *HR* FentaNYL (PF) 100 MCG/2 ML VIAL ONE (15:24)
--- NOTE | 2017-04-16 16:07 | Internal Med Progress Note ---
Date of Encounter: 04/16/17 Time of Encounter: 09:15 - Assessment and plan (1) Pancreatic mass Current Visit: Yes Status: Acute Assessment and plan: Unclear etiology, could be related to pancreatitis versus mass. Oncology consult noted, follow-up tumor markers. GI consult appreciated, plan for EUS with biopsy today. IV hydration and supportive care. PRN antiemetics. (2) UTI (urinary tract infection) Current Visit: Yes Status: Suspected Assessment and plan: Urinalysis suggestive of UTI and patient received IV Rocephin. Urine culture shows no significant growth, hold antibiotics at this time. Qualifiers: Urinary tract infection type: acute cystitis Hematuria presence: without hematuria Qualified Code(s): N30.00 - Acute cystitis without hematuria (3) Abdominal pain Current Visit: Yes Status: Chronic Assessment and plan: Ongoing abdominal pain for at least 2 months. Related to pancreatitis versus pancreatic mass. Pain control with when necessary oral Percocet at this time. Diet as tolerated after GI procedure today. Qualifiers: Abdominal location: epigastric Qualified Code(s): R10.13 - Epigastric pain (4) Pulmonary nodules/lesions, multiple Current Visit: Yes Status: Acute - Subjective Interval history: Reports significant nausea and dry heaves; has been NPO since midnight for EUS/ pancreatic biopsy today; - Constitutional Vitals: Temp Pulse Resp BP Pulse Ox 97.7 F 89 15 129/63 98 04/16/17 11:22 04/16/17 14:25 04/16/17 14:25 04/16/17 14:25 04/16/17 14:25 General appearance: Present: mild distress, A&O X 3, underweight, answers questions appropriately - Respiratory Respiratory exam: Present: CTAB. Absent: accessory muscle use, rales, rhonchi, wheezes - Cardiovascular Cardiovascular exam: Present: RRR, +S1, +S2. Absent: diastolic murmur, gallop, rubs, systolic murmur - GI/Abdominal GI/Abdominal exam: Present: normal bowel sounds, soft, no peritoneal signs. Absent: distended, tenderness Internal Medicine: Result - Labs CBC & Chem 7: 04/16/17 06:59 04/16/17 06:59 Labs: Short CBC 04/16/17 Range/Units 06:59 WBC 6.6 (4.3-11.1) K/mcL Hgb 13.1 (11.5-15.4) g/dL Hct 39.7 (35.3-44.9) % Plt Count 265 (140-400) K/mcL Neutrophils # 4.7 (1.6-8.9) K/mcL BMP 04/16/17 06:59 Sodium 137 Potassium 3.7 Chloride 105 Carbon Dioxide 18 L BUN 12 Creatinine 0.61 Glucose 63 L Calcium 9.0 Liver Function 04/16/17 Range/Units 06:59 Total Bilirubin 0.5 (0.2-1.2) mg/dL AST 17 (5-34) Units/L ALT 10 (0-55) Units/L Alkaline Phosphatase 77 (38-126) Units/L Albumin 3.4 L (3.5-5.0) g/dL - ABG Interpretation ABG results: PT/INR, D-dimer PT 11.9 Seconds (9.4-12.1) 04/14/17 05:05 Consult Discharge Plan - Plan Referrals: Kelsea Kauffman ASSISTANT FIELD HOCKEY COACH [Advanced Practice Nurse] - 04/28/17 1:00 pm
--- NOTE | 2017-04-16 17:03 | Anesthesia Evaluation Post Op ---
Date of Encounter: 04/16/17 Time of Encounter: 17:02 - Vital Signs Vital Signs: Vital Signs/O2 Sat/Glucose, Most Current Temp Pulse Resp BP Pulse Ox 04/16/17 16:54 80 16 138/71 97 04/16/17 16:44 82 18 138/70 98 04/16/17 16:34 98.3 F 85 17 139/68 99 04/16/17 14:25 89 15 129/63 98 - Lungs Lungs: Clear Ascult./Percussion - Airway Airway: Non-obstructed - Cardiovascular Regular Rate - Mental Status Mental Status: Asleep with brisk response to light stimulation - Pain Pain Scale: 0 - Nausea Vomiting Nausea Vomiting: Not Present - Hydration Hydration: NPO - Discharge PostOp Status: Transfer Patient to floor
[2017-04-17] MEDS: *HR* HYDROcodone/Acet 5/325 mg TABLET PO PRN ×3 (03:29→20:51)
[2017-04-17 04:13] LABS: Basophils % 0.4 %; Eosinophils # 0.1 K/mcL (0.0-0.6); Eosinophils % 0.7 %; Hematocrit 40.4 % (35.3-44.9); Hemoglobin 13.8 g/dL (11.5-15.4); Immature Granulocytes % 0.3 % (0-4); Lymphocytes # 1.9 K/mcL (0.6-4.6); Lymphocytes % 26.2 %; Mean Corpuscular HGB Conc 34.2 g/dL (31.6-35.5); Mean Corpuscular Hemoglobin 30.7 pg (28.0-33.3); Mean Corpuscular Volume 89.8 fL (83.0-100.0); Monocytes % 13.8 %; Neutrophils # 4.2 K/mcL (1.6-8.9); Platelet Count 261 K/mcL (140-400); Red Cell Distribution Width 13.1 % (11.5-14.5); Segmented Neutrophils % 58.6 %
[2017-04-17 04:27] LABS: Alanine Aminotransferase 9 Units/L (0-55); Albumin 3.2 g/dL (3.5-5.0); Alkaline Phosphatase 76 Units/L (38-126); Aspartate Amino Transferase 15 Units/L (5-34); BUN/Creatinine Ratio 18 (6-26); Bilirubin,Total 0.4 mg/dL (0.2-1.2); Blood Urea Nitrogen 12 mg/dL (7-20); Calcium 8.9 mg/dL (8.6-10.8); Carbon Dioxide 26 mEq/L (19-29); Chloride 106 mEq/L (98-109); Globulin 3.2 g/dL (2.4-3.5); Glucose 103 mg/dL (70-99); Osmolality,Calculated 286 (280-300); Potassium 4.4 mEq/L (3.5-4.5); Sodium 138 mEq/L (136-145); Total Protein 6.4 g/dL (6.0-8.3); eGFR For African Americans > 60 (> 60); eGFR For Non-African Americans > 60 (> 60)
[2017-04-17] MEDS: *HR* Heparin 5,000 UNIT/ML VIAL SQ SCH ×2 (05:15→17:33)
[2017-04-17] MEDS: Nicotine 21 MG PATCH.TD24 TD SCH (08:17)
[2017-04-17] MEDS: Famotidine 20 MG TABLET PO SCH ×2 (08:17→20:52)
--- NOTE | 2017-04-17 17:19 | Internal Med Progress Note ---
Date of Encounter: 04/17/17 Time of Encounter: 10:00 - Assessment and plan (1) Pancreatic mass Current Visit: Yes Status: Acute Assessment and plan: Unclear etiology, could be related to pancreatitis versus mass. GI consulted, underwent EUS with pancreatic mass biopsy, results pending. Serum lipase today noted to be normal. Continues to have intermittent epigastric pain. CA-19-9 noted to be elevated. Case discussed with oncology, we will await recommendations. Patient will need outpatient oncology follow-up given pancreatic mass along with liver and lung metastases. supportive care. PRN antiemetics. (2) UTI (urinary tract infection) Current Visit: Yes Status: Suspected Qualifiers: Urinary tract infection type: acute cystitis Hematuria presence: without hematuria Qualified Code(s): N30.00 - Acute cystitis without hematuria (3) Abdominal pain Current Visit: Yes Status: Chronic Assessment and plan: Ongoing abdominal pain for at least 2 months. Related to pancreatitis versus pancreatic mass. Pain control with when necessary oral Percocet at this time. Diet as tolerated. Qualifiers: Abdominal location: epigastric Qualified Code(s): R10.13 - Epigastric pain (4) Pulmonary nodules/lesions, multiple Current Visit: Yes Status: Acute - Subjective Interval history: Reports improved nausea and continues to have intermittent epigastric pain, radiating to her back. Tolerates oral diet, no vomiting. - Constitutional Vitals: Temp Pulse Resp BP Pulse Ox 97.5 F L 74 14 135/79 98 04/17/17 14:06 04/17/17 14:06 04/17/17 14:06 04/17/17 14:06 04/17/17 14:06 General appearance: Present: A&O X 3, underweight, answers questions appropriately - Respiratory Respiratory exam: Present: CTAB. Absent: accessory muscle use, rales, rhonchi, wheezes - Cardiovascular Cardiovascular exam: Present: RRR, +S1, +S2. Absent: diastolic murmur, gallop, rubs, systolic murmur - GI/Abdominal GI/Abdominal exam: Present: normal bowel sounds, soft (Epigastric tenderness), no peritoneal signs. Absent: distended, tenderness Internal Medicine: Result - Labs CBC & Chem 7: 04/17/17 04:01 04/17/17 04:01 Labs: Short CBC 04/17/17 Range/Units 04:01 WBC 7.1 (4.3-11.1) K/mcL Hgb 13.8 (11.5-15.4) g/dL Hct 40.4 (35.3-44.9) % Plt Count 261 (140-400) K/mcL Neutrophils # 4.2 (1.6-8.9) K/mcL BMP 04/17/17 04:01 Sodium 138 Potassium 4.4 Chloride 106 Carbon Dioxide 26 BUN 12 Creatinine 0.67 Glucose 103 H Calcium 8.9 Liver Function 04/17/17 Range/Units 04:01 Total Bilirubin 0.4 (0.2-1.2) mg/dL AST 15 (5-34) Units/L ALT 9 (0-55) Units/L Alkaline Phosphatase 76 (38-126) Units/L Albumin 3.2 L (3.5-5.0) g/dL - ABG Interpretation ABG results: PT/INR, D-dimer PT 11.9 Seconds (9.4-12.1) 04/14/17 05:05 Consult Discharge Plan - Plan Referrals: Kelsea Kauffman CNP [Advanced Practice Nurse] - 04/28/17 1:00 pm Don Robles MD [Partnered Physician] - 04/30/17 10:30 am (Biopsy Results)
[2017-04-18 03:17] VITALS: BP 119/72
[2017-04-18] MEDS: *HR* HYDROcodone/Acet 5/325 mg TABLET PO PRN ×2 (03:35→09:57)
[2017-04-18 05:43] LABS: Basophils % 0.6 %; Eosinophils # 0.1 K/mcL (0.0-0.6); Eosinophils % 2.3 %; Hemoglobin 13.6 g/dL (11.5-15.4); Immature Granulocytes % 0.2 % (0-4); Lymphocytes # 1.4 K/mcL (0.6-4.6); Lymphocytes % 26.4 %; Mean Corpuscular HGB Conc 34.9 g/dL (31.6-35.5); Mean Corpuscular Hemoglobin 31.3 pg (28.0-33.3); Mean Corpuscular Volume 89.7 fL (83.0-100.0); Mean Platelet Volume 9.9 fL (9.4-12.4); Monocytes # 0.6 K/mcL (0.0-1.3); Monocytes % 12.1 %; Neutrophils # 3.1 K/mcL (1.6-8.9); Platelet Count 224 K/mcL (140-400); Red Blood Count 4.35 M/mcL (3.82-4.97); Red Cell Distribution Width 13.1 % (11.5-14.5); Segmented Neutrophils % 58.4 %
[2017-04-18 06:15] LABS: Alanine Aminotransferase 13 Units/L (0-55); Albumin/Globulin Ratio 0.9 (1.1-2.2); Alkaline Phosphatase 71 Units/L (38-126); Aspartate Amino Transferase 21 Units/L (5-34); BUN/Creatinine Ratio 11 (6-26); Bilirubin,Total 0.4 mg/dL (0.2-1.2); Blood Urea Nitrogen 7 mg/dL (7-20); Calcium 8.9 mg/dL (8.6-10.8); Carbon Dioxide 32 mEq/L (19-29); Chloride 103 mEq/L (98-109); Globulin 3.2 g/dL (2.4-3.5); Glucose 118 mg/dL (70-99); Osmolality,Calculated 291 (280-300); Potassium 3.6 mEq/L (3.5-4.5); Sodium 141 mEq/L (136-145); Total Protein 6.2 g/dL (6.0-8.3); eGFR For African Americans > 60 (> 60); eGFR For Non-African Americans > 60 (> 60)
[2017-04-18] MEDS: *HR* Heparin 5,000 UNIT/ML VIAL SQ SCH (06:16)
[2017-04-18] MEDS: Famotidine 20 MG TABLET PO SCH (08:50)
[2017-04-18] MEDS: Nicotine 21 MG PATCH.TD24 TD SCH (08:50)
--- NOTE | 2017-04-18 09:54 | Oncology Inp Progress Note ---
Date of Encounter: 04/18/17 Time of Encounter: 09:52 (1) Pancreatic mass Current Visit: Yes Status: Acute Assessment and plan: EUS biopsy of the pancreas done by Dr. Sanches. Discussed with Dr Sanches and Dr. Flores at pathology. Preliminary suspicious for carcinoma. Awaiting final report. I had a long discussion with the patient and the family. To expedite things I will make an appointment with surgeon. After discussion they are interested in going to [facility]. I will make an appointment with Dr. Joseph Stout at [facility]. She also has bilateral subcentimeter lung nodules which are not well defined. This is concerning for metastasis but inflammatory infectious etiology cannot be ruled out CA 19-9 is elevated at 583 on 04/14/2017. If she is not a surgical candidate would consider chemotherapy. Follow-up in the office in 7-10 days Oncology: Subj Interval history: Still has abdominal pain. Nausea mildly better. Continued weight loss and poor appetite - Constitutional Vitals: Vital Signs Temp Pulse Resp BP Pulse Ox 04/18/17 03:16 98.1 F 89 18 119/72 96 04/17/17 19:14 97.7 F 75 16 118/70 96 04/17/17 14:06 97.5 F L 74 14 135/79 98 04/17/17 11:17 98.0 F 78 14 126/76 98 Intake and Output 04/17/17 04/18/17 04/18/17 23:59 07:59 15:59 Intake Total 240 / 240 0 / 0 240 / 240 Output Total 250 / 250 500 / 500 Balance -10 / -10 -500 / -500 240 / 240 Intake: Oral 240 / 240 0 / 0 240 / 240 Output: Urine 250 / 250 500 / 500 Other: Meal Dinner Breakfast Percent of Meal Consumed 50% 50% Weight 41.6 kg Patient Weight 04/18/17 23:59 Weight 41.6 kg Exam: GENERAL: Alert and oriented, well appearing. Mental Status: Affect appropriate for circumstances HEENT: Sclerae anicteric. No mucositis or thrush. No other oral or pharyngeal lesions or erythema. Skin: No rashes or petechiae. No evidence of skin malignancy Lymph nodes: No cervical, supraclavicular, axillary, or inguinal adenopathy. Lungs: Air entry normal with normal breath sounds. No rhonchi or wheezing Cardiovascular: Regular rate and rhythm. No skipped beats Abdomen: Soft, epigastric tenderness. No distinct mass palpable. Extremities: No edema. No calf swelling or tenderness. No joint deformity. Neurologic: Alert, cranial nerves II-XII intact; normal gait; no focal weakness or sensory abnormalities Oncology: Obj Data - Labs CBC & Chem 7: 04/18/17 04:36 04/18/17 04:36 Labs: Laboratory Results - last 24 hr 04/17/17 04/18/17 04/18/17 11:12 04:36 04:36 WBC 5.2 RBC 4.35 Hgb 13.6 Hct 39.0 MCV 89.7 MCH 31.3 MCHC 34.9 RDW 13.1 Plt Count 224 MPV 9.9 Immature Gran % 0.2 Seg Neutrophils % 58.4 Lymphocytes % 26.4 Monocytes % 12.1 Eosinophils % 2.3 Basophils % 0.6 Neutrophils # 3.1 Lymphocytes # 1.4 Monocytes # 0.6 Eosinophils # 0.1 Basophils # 0.0 Sodium 141 Potassium 3.6 Chloride 103 Carbon Dioxide 32 H BUN 7 Creatinine 0.61 Est GFR ( Amer) > 60 Est GFR (Non-Af Amer) > 60 BUN/Creatinine Ratio 11 Glucose 118 H Calculated Osmolality 291 Calcium 8.9 Total Bilirubin 0.4 AST 21 ALT 13 Alkaline Phosphatase 71 Serum Total Protein 6.2 Albumin 3.0 L Globulin 3.2 Albumin/Globulin Ratio 0.9 L Lipase 22 - ABG Interpretation ABG results: PT/INR, D-dimer PT 11.9 Seconds (9.4-12.1) 04/14/17 05:05 Consult Discharge Plan - Plan Referrals: Kelsea Kauffman CNP [Advanced Practice Nurse] - 04/28/17 1:00 pm Don Robles MD [Partnered Physician] - 04/30/17 10:30 am (Biopsy Results)
--- NOTE | 2017-04-18 09:55 | Discharge Summary ---
Date of Encounter: 04/18/17 Time of Encounter: 09:53 - Discharge Diagnosis (1) Pancreatic mass Priority: Primary Status: Acute (2) UTI (urinary tract infection) Priority: Primary Status: Ruled-out Qualifiers: Urinary tract infection type: acute cystitis Hematuria presence: without hematuria Qualified Code(s): N30.00 - Acute cystitis without hematuria (3) Abdominal pain Priority: Primary Status: Chronic Qualifiers: Abdominal location: epigastric Qualified Code(s): R10.13 - Epigastric pain (4) Pulmonary nodules/lesions, multiple Priority: Primary Status: Acute - Discharge Medications Prescriptions: HYDROcodone/Acet 5/325 mg [Golf 5-325 mg] 1 tab PO Q6HR PRN #20 tablet PRN Reason: Pain Nicotine Patch [Nicoderm] 21 mg TD DAILY #30 patch.td24 Omeprazole 20 mg PO DAILY #30 tablet. Senkathleen/Docusate Sodium [Senna Plus] 1 each PO BID PRN #30 tablet PRN Reason: Constipation Home Medications: Albuterol Neb [Proventil Neb] 2.5 mg IH TID PRN 04/14/17 [History] Ondansetron HCl [Zofran] 4 mg PO Q4-6H PRN 04/14/17 [History] HYDROcodone/Acet 5/325 mg [Golf 5-325 mg] 1 tab PO Q6HR PRN #20 tablet [Rx] Nicotine Patch [Nicoderm] 21 mg TD DAILY #30 patch.td24 04/18/17 [Rx] Omeprazole 20 mg PO DAILY #30 tablet. 04/18/17 [Rx] Sennosides/Docusate Sodium [Senna Plus] 1 each PO BID PRN #30 tablet 04/18/17 [ Rx] Allergies/Adverse Reactions: Allergies No Known Allergies Allergy (Verified 04/13/17 22:17) Date of admission: 04/14/17 02:58 Primary care physician: PCP NO Consults: 04/14/17 03:51 Consult to Physical Therapy [CONS] Routine Comment: Evaluate, develop and implement POC Reason for Consult: pt eval Consult to Lead Investigator [CONS] Routine Reason for SW Consult: d/c planning 04/14/17 03:52 Consult to Oncology [CONS] Routine Consulting Provider: [facility] Reason for Consult: pancreatic mass Call Completed: No 04/14/17 16:56 Consult to Gastroenterology [CONS] Routine Consulting Provider: Gastroenterology [facility] Reason for Consult: pancreatic mass ( CT of january 2017- no mass present) possible biopsy? Call Completed: No Discharging clinician: Tammy Reed Anticipated date of discharge: 04/18/17 - Patient Status Disposition: Home, Self-Care Condition: Fair Functional capacity at discharge: independent ambulation Overall status at discharge: patient is progressing back to baseline - Discharge Instructions Follow Up With: Kelsea Kauffman CNP [Advanced Practice Nurse] - 04/28/17 1:00 pm Don Robles MD [Partnered Physician] - 04/30/17 10:30 am (Biopsy Results) - Diet and Activity Activity: resume usual activities as tolerated Diet: advance to your usual diet, low fat, low cholesterol Hospital course: Ms. Canas is a 71 year old female with the above medical problems who was admitted with epigastric pain, radiating to her back associated with nausea and emesis. CT abdomen/pelvis was concerning for a pancreatic mass and further imaging revealed hepatic lesions and bilateral lung nodules concerning for secondary metastasis. Oncology was consulted and recommended tumor markers and GI consult for possible biopsy. CA-19-9 was noted to be elevated. GI was consulted and patient underwent EUS with pancreatic mass biopsy. Her symptoms are currently improved but she continues to have intermittent epigastric pain and nausea, controlled with oral antiemetics and narcotic pain medications. Case was discussed with oncology and patient received an appointment to follow-up with oncology for biopsy results and further management within 2 weeks and she is now medically stable for discharge. Patient is also noted to be a chronic heavy smoker, at least one pack per day and smoking cessation counseling was provided for 4 minutes and patient is willing to quit smoking at this time and requested for nicotine transdermal patch prescription. Time spent discussing smoking cessation with patient: 3 to 10 minutes (4 min) - Time Spent with Patient Total time spent providing and/or coordinating discharge services: Greater than 30 minutes (45 min) - Constitutional Vitals: Temp Pulse Resp BP Pulse Ox 98.1 F 89 18 119/72 96 04/18/17 03:16 04/18/17 03:16 04/18/17 03:16 04/18/17 03:16 04/18/17 03:16 General appearance: Present: mild distress, A&O X 3, underweight, answers questions appropriately - Respiratory Respiratory exam: Present: CTAB. Absent: accessory muscle use, rales, rhonchi, wheezes - Cardiovascular Cardiovascular exam: Present: RRR, +S1, +S2. Absent: diastolic murmur, gallop, rubs, systolic murmur
== END 2017-04-18 10:48 | disposition home or self-care (01) ==
LOC: 3ANU 21:51 → EMEROO 21:51 → 3ANU 04-14 03:01 → SUATTDRO 04-14 03:47 → 3ANU 04-14 04:36
PROVIDERS: ADMIT Internal Medicine; ATTEND Internal Medicine
PROC: ENDOEUS (2017-04-16 13:00)

== ENCOUNTER 2017-05-06 22:55 | Inpatient (IN) ==
[2017-05-07] MEDS ORDERED: *HR* HYDROmorphone (PF) 1 MG/ML SYRINGE IVP ONE ×2 (00:11→01:41)
[2017-05-07] MEDS ORDERED: 0.9 % Sodium Chloride 1,000 ML IVC ONE (00:11)
[2017-05-07] MEDS ORDERED: Ondansetron 4 MG/2 ML VIAL IVP ONE (00:11)
--- NOTE | 2017-05-07 00:14 | Emergency Department Note ---
Disposition Clinical Impression: Pancreatic neoplasm, Hypokalemia Abdominal pain Qualifiers: Abdominal location: generalized Qualified Code(s): R10.84 - Generalized abdominal pain Disposition: Admitted As Inpatient Condition: Fair Time of Disposition: 04:06 General Adult HPI - General Chief complaint: ED Neuro Symptoms/Deficit Stated complaint: Left Side Numb and Tingling Time Seen by Provider: 05/06/17 23:44 Source: patient Mode of arrival: ambulatory Limitations: no limitations Nursing Notes Reviewed: Yes Vital Signs Reviewed: Yes - History of Present Illness HPI Narrative: 71 yo female with a recent diagnosis of pancreatic cancer presents for evaluation of worsening abdominal pain. Denies a nausea or vomiting but notes that the pain has gotten significantly worse within the past several days. Notes to be epigastric in her back. Notes that she is extremely anxious and cannot sleep. Patient reports some subjective fever and chills but denies any notable fevers. Denies any chest pain short of breath. Reports typically stooling but had a normal stool with the assistance of MiraLAX and stool softeners in the past day. Has established with oncology, but no interventions noted. States that she has been treating her pain at home with oral hydromorphone as well as fentanyl patches. Also noted to have some numbness of her left hand that she states gets worse when she gets anxious. Does have a pretty strong history of anxiety. Pain Scale: 6 - Related Data Home Medications Medication Instructions Recorded Confirmed Ondansetron HCl [Zofran] 4 mg PO Q4-6H PRN 04/14/17 04/30/17 Previous Rx's Medication Instructions Recorded HYDROcodone/Acet 5/325 mg [[place] 1 tab PO Q6HR PRN #20 tablet 04/18/17 5-325 mg] Nicotine Patch [Nicoderm] 21 mg TD DAILY #30 patch.td24 04/18/17 Omeprazole 20 mg PO DAILY #30 tablet. 04/18/17 Sennosides/Docusate Sodium [Senna 1 each PO BID PRN #30 tablet 04/18/17 Plus] FentaNYL PATCH [Duragesic] 25 mcg TD Q72H #10 patch.td72 04/30/17 Hydromorphone HCl [Dilaudid] 2 mg PO Q4H PRN #60 tablet 04/30/17 Allergies Allergy/AdvReac Type Severity Reaction Status Date / Time No Known Allergies Allergy Verified 04/13/17 22:17 All systems ED: reviewed and negative except as stated. Constitutional: Reports: as per HPI, fever, chills Eyes: Reports: as per HPI ENT ED: Reports: as per HPI Cardiovascular: Reports: as per HPI. Denies: chest pain Respiratory: Reports: as per HPI. Denies: dyspnea Gastrointestinal: Reports: as per HPI, abdominal pain, nausea. Denies: vomiting Genitourinary: Reports: as per HPI Musculoskeletal: Reports: as per HPI Integumentary: Reports: as per HPI Neurological: Reports: as per HPI Psychiatric: Reports: as per HPI Endocrine: Reports: as per HPI Hematological/Lymphatic: Reports: as per HPI Allergic/Immunologic: Reports: as per HPI Past Medical History - Past Medical History Medical history: Reports: cancer, other Surgical history: Reports: (Rate) Psychiatric history: Reports: no psych history - Social History Smoking Status: Former smoker Smokeless Tobacco Status: No Alcohol use: Reports: rarely Drug use: Reports: none Physical Exam - General Limitations: no limitations General appearance: alert, in no apparent distress - Head Head exam: atraumatic, normocephalic, normal inspection - Eye Eye exam: Present: normal appearance, EOMI - ENT ENT exam: normal exam, mucous membranes moist - Neck Neck exam: Present: normal inspection - Chest Chest inspection: Present: normal inspection, symmetric chest wall rise - Respiratory Respiratory exam: Present: normal lung sounds bilaterally. Absent: respiratory distress - Cardiovascular Cardiovascular exam: Present: regular rate, normal rhythm - Abdominal Exam Abdominal exam: Present: soft, tenderness (Moderate midepigastric). Absent: distention, guarding, rebound - Extremities Exam Extremities exam: Present: normal inspection. Absent: pedal edema - Back Exam Back exam: Present: normal inspection - Neurological Exam Neurological exam: Present: alert, oriented X3, CN II-XII intact - Expanded Neurological Exam Patient oriented to: Present: person, place, time Speech: Present: fluid speech Cranial nerves: EOM function (II, III, IV, ): Normal, facial sensation (V): Normal, facial palsy (VII): Normal, spinal accessory function (XI): Normal, tongue deviation (XII): Normal Motor strength - LUE: 5/5 Motor strength - RUE: 5/5 Motor strength - LLE: 5/5 Motor strength - RLE: 5/5 - Psychiatric Psychiatric exam: Present: anxious - Skin Skin exam: Present: warm, dry, intact, normal color Course Course Narrative: Patient seen and examined. Patient appears quite anxious. Patient has a nonfocal neurologic exam is subjective numbness is likely rate to anxiety. Patient's recent diagnosis of pancreatic cancer. Nonsurgical abdomen. Patient will get IV fluids, antiemetics, pain medicine as well as labs and CT abdomen and pelvis. Disposition pending. - Reevaluation(s) Reevaluation #1: Visit the pain medicine did help improve her pain symptoms temporarily. Patient will be redosed on pain medicine. Awaiting CT of the head as well as abdomen. Patient is also noted be hypokalemic. Oral potassium supplementation as well as IV undertaken. Time: 01:45 Vital Signs Temperature 97.7 F 05/06/17 22:57 Pulse Rate 74 05/06/17 22:57 Respiratory Rate 14 05/06/17 22:57 Blood Pressure 107/71 05/06/17 22:57 O2 Sat by Pulse Oximetry 96 05/06/17 22:57 Temperature 97.7 F 05/07/17 03:49 Pulse Rate 64 05/07/17 03:49 Respiratory Rate 16 05/07/17 03:49 Blood Pressure 103/57 05/07/17 03:49 O2 Sat by Pulse Oximetry 99 05/07/17 03:49 Oxygen Delivery Oxygen Delivery Room Air Medical Decision Making - [facility] Narrative Medical decision making narrative: 71-year-old female with a recent diagnosis of pancreatic adenocarcinoma presents for evaluation of intractable abdominal pain. Patient is on high dose of pain medicine at home including phenol patch as well as hydromorphone. Notes worsening pain in the past 24 hours. Patient saw her oncologist prescribed pain medicine. No therapeutic plan discussed at that point. Patient had some nausea and vomiting. Patient's abdominal exam shows no acute abnormalities. Patient had basic lab work which showed hypokalemia. Magnesium level is pending. Patients receiving oral as well as IV potassium supplementation. Patient's pain was addressed with escalating doses of Dilaudid. Patient had a CT of the head as well as the abdomen and pelvis. Patient CT abdomen and pelvis shows pancreatic adenocarcinoma. Patient's head CT shows no acute abnormalities. Patient was complaining of left arm numbness likely secondary to anxiety however could not rule out any secondary disease or metastasis and a head CT was warranted. Patient had a nonfocal neurologic exam otherwise. Patient had an unremarkable EKG. Patient's family at bedside agree with plan of care with inpatient pain control and monitoring. - Lab Data Lab results reviewed: Yes I reviewed the patient's lab results. Result diagrams: 05/07/17 00:29 05/07/17 00:29 Lab Results 05/07/17 05/07/17 Range/Units 00:29 00:29 WBC 7.9 (4.3-11.1) K/mcL RBC 4.76 (3.82-4.97) M/mcL Hgb 14.4 (11.5-15.4) g/dL Hct 41.5 (35.3-44.9) % MCV 87.2 (83.0-100.0) fL MCH 30.3 (28.0-33.3) pg MCHC 34.7 (31.6-35.5) g/dL RDW 12.0 (11.5-14.5) % Plt Count 316 (140-400) K/mcL MPV 8.8 L (9.4-12.4) fL Immature Gran % 0.4 (0-4) % Seg Neutrophils % 65.2 % Lymphocytes % 21.6 % Monocytes % 11.9 % Eosinophils % 0.5 % Basophils % 0.4 % Neutrophils # 5.1 (1.6-8.9) K/mcL Lymphocytes # 1.7 (0.6-4.6) K/mcL Monocytes # 0.9 (0.0-1.3) K/mcL Eosinophils # 0.0 (0.0-0.6) K/mcL Basophils # 0.0 (0.0-0.2) K/mcL Sodium 134 L (136-145) mEq/L Potassium 2.6 L (3.5-4.5) mEq/L Chloride 86 L (98-109) mEq/L Carbon Dioxide 39 H (19-29) mEq/L BUN 10 (7-20) mg/dL Creatinine 0.63 (0.57-1.11) mg/dL Est GFR ( Amer) > 60 (> 60) Est GFR (Non-Af Amer) > 60 (> 60) BUN/Creatinine Ratio 16 (6-26) Glucose 126 H (70-99) mg/dL Calculated Osmolality 279 L (280-300) Calcium 9.8 (8.6-10.8) mg/dL Magnesium 2.0 (1.6-2.6) mg/dL Total Bilirubin 0.4 (0.2-1.2) mg/dL Direct Bilirubin 0.2 (0.0-0.5) mg/dL Indirect Bilirubin 0.2 (0.0-1.2) mg/dL AST 15 (5-34) Units/L ALT 12 (0-55) Units/L Alkaline Phosphatase 84 (38-126) Units/L Serum Total Protein 7.2 (6.0-8.3) g/dL Albumin 3.6 (3.5-5.0) g/dL Globulin 3.6 H (2.4-3.5) g/dL Albumin/Globulin Ratio 1.0 L (1.1-2.2) Lipase 19 (8-78) Units/L - Radiology Data Radiology results reviewed: Yes I reviewed the patient's radiology results. Abdomen/Pelvis CT 05/07/17 00:13 IMPRESSION: Mild interval progression of pancreatic carcinoma with development of celiac axis encasement. D/ / Santhosh Au MD / Santhosh Au MD Interpreting Provider: Santhosh Au MD Head CT 05/07/17 00:24 IMPRESSION: No acute intracranial abnormality. D/ / Santhosh Au MD / Santhosh Au MD Interpreting Provider: Santhosh Au MD - EKG Data EKG #1 EKG attestation: Yes I reviewed and interpreted this EKG. EKG shows normal: sinus rhythm Rate: normal Rhythm: NSR Brogue/QRS: normal P waves: LAE, other (P-wave inversions in V1 and V2) Q waves: v1 Interpretation: no acute changes, unchanged when compared to prior tracing (date ) (03/2017), nonspecific ST-T wave changes S.B.A.R. - S.B.A.R. Situation: Demographics Background: Presenting Complaint Assessment: Vital Signs, Course and respsone to treatment, Patient/Family Expectation Recommendation: Barrier(s) to disposition Moises Report Given to: Dr. Francisco De Leon Repor Time: 02:26 Attestation Statement - Attestation Attestation: I, Reynold Aguila MD, personally evaluated this patient and discussed their management with the resident physician. I reviewed the resident's note and agree with the documented findings, medical decision making, and plan of care. 71-year-old female recently diagnosed with pancreatic cancer presents to the emergency department with a complaint of right mid epigastric abdominal pain radiating through to the back. Nausea and vomiting. She has had some intermittent numbness and tingling sensation in her left side all day secondary to the pain. No weakness. On examination patient is a well-developed thin elderly female in no acute distress. She is alert and oriented 3. There is no cyanosis or diaphoresis. She does seem somewhat anxious. Chest is nontender to palpation. Breath sounds are decreased but equal bilaterally. Heart regular rate and rhythm. Abdomen is soft with present bowel sounds. Mild epigastric tenderness. No CVA tenderness. Labs reviewed. CT of the brain shows no acute intracranial abnormality. CT of the abdomen and pelvis shows interval progression of the pancreatic cancer. The hospitalist, Dr. Singh, was consulted and accepted admission of the patient.
[2017-05-07 00:53] LABS: Basophils % 0.4 %; Eosinophils % 0.5 %; Hematocrit 41.5 % (35.3-44.9); Hemoglobin 14.4 g/dL (11.5-15.4); Immature Granulocytes % 0.4 % (0-4); Lymphocytes # 1.7 K/mcL (0.6-4.6); Lymphocytes % 21.6 %; Mean Corpuscular HGB Conc 34.7 g/dL (31.6-35.5); Mean Corpuscular Hemoglobin 30.3 pg (28.0-33.3); Mean Corpuscular Volume 87.2 fL (83.0-100.0); Mean Platelet Volume 8.8 fL (9.4-12.4); Monocytes # 0.9 K/mcL (0.0-1.3); Monocytes % 11.9 %; Neutrophils # 5.1 K/mcL (1.6-8.9); Platelet Count 316 K/mcL (140-400); Red Blood Count 4.76 M/mcL (3.82-4.97); Segmented Neutrophils % 65.2 %
[2017-05-07 01:12] LABS: Alanine Aminotransferase 12 Units/L (0-55); Albumin 3.6 g/dL (3.5-5.0); Alkaline Phosphatase 84 Units/L (38-126); Aspartate Amino Transferase 15 Units/L (5-34); BUN/Creatinine Ratio 16 (6-26); Bilirubin,Direct 0.2 mg/dL (0.0-0.5); Bilirubin,Indirect 0.2 mg/dL (0.0-1.2); Bilirubin,Total 0.4 mg/dL (0.2-1.2); Blood Urea Nitrogen 10 mg/dL (7-20); Calcium 9.8 mg/dL (8.6-10.8); Carbon Dioxide 39 mEq/L (19-29); Chloride 86 mEq/L (98-109); Globulin 3.6 g/dL (2.4-3.5); Glucose 126 mg/dL (70-99); Lipase 19 Units/L (8-78); Osmolality,Calculated 279 (280-300); Potassium 2.6 mEq/L (3.5-4.5); Sodium 134 mEq/L (136-145); Total Protein 7.2 g/dL (6.0-8.3); eGFR For African Americans > 60 (> 60); eGFR For Non-African Americans > 60 (> 60)
[2017-05-07] MEDS ORDERED: Ondansetron 4 MG/2 ML VIAL IVP PRN ×2 (03:14→09:23)
[2017-05-07] MEDS ORDERED: Naloxone 0.4 MG/ML INJ IVP PRN (03:14)
[2017-05-07] MEDS ORDERED: *HR* HYDROcodone/Acet 5/325 mg TABLET PO PRN (03:17)
[2017-05-07] MEDS ORDERED: Sennosides/Docusate Sodium TABLET PO PRN (03:17)
[2017-05-07] MEDS ORDERED: *HR* FentaNYL PATCH 25 MCG PATCH TD SCH (03:30)
--- NOTE | 2017-05-07 03:47 | Internal Med History&Physical ---
Date of Encounter: 05/07/17 Time of Encounter: 04:00 Assessment and Plan (1) Abdominal pain Current visit: No Status: Acute Acute on chronic abdominal pain - secondary to metastatic pancreatic carcinoma, encasing celiac trunk continue IV Morphine, Fentanyl patch and Roxana CT Abd/pelvis - Mild interval progression of pancreatic carcinoma with development of celiac axis encasement EKG - NSR with no acute ST-T changes CT Brain - no acute intracranial abnormality scheduled for outpatient celiac plexus block by IR Qualifiers: Abdominal location: unspecified location Qualified Code(s): R10.9 - Unspecified abdominal pain (2) Pancreatic cancer metastasized to lung Current visit: No Status: Acute Likely stage IV - with possible liver metastasis and multiple lung nodules EUS biopsy of the pancreas done by Dr. Sanches (04/16/2017) - showed adenocarcinoma EUS showed mass is 22 x 21 mm and 4 cm overall size encasing splenic Artery CT chest showed bilateral multiple lung nodules concerning for metastasis [id number] elevated at 583 on 04/14/2017 Scheduled to undergo palliative chemotherapy Oncology consult (3) Hypokalemia Current visit: Yes Status: Acute Acute Hypokalemia - unclear etiology Potassium replaced, labs in a.m. (4) Tobacco abuse Current visit: No Status: Chronic Patient states she quit smoking about 1 month ago (5) DVT prophylaxis Current visit: No Status: Acute Continue Heparin subcu Internal Medicine - H&P: HPI Chief complaint: Abdominal pain Admitted From: Emergency Dept Plans for Post Hospital Care: Home History of present illness: Ms. Canas is a 71 year old female with PMH of recently diagnosed metastatic Pancreatic adenocarcinoma. She presents to the ED with complaints of abdominal pain and nausea for about 2-3 days ago. On examination patient is awake and alert. Not in any distress. Able to provide all history. is at bedside. Patient states symptoms of abdominal pain started several weeks ago. She has been recently diagnosed with metastatic pancreatic adenocarcinoma. She has been following up with oncology. Patient states that over the past 2-3 days abdominal pain has worsened. He describes it as a cramping pain which is also sharp at times. It is almost a generalized abdominal pain with no radiation. Rates it 7 out of 10. Aggravated with food intake. No alleviating factors. No other associated symptoms. Her PO intake has also been very poor. She complains of nausea but no vomiting. Patient denies chest pain or shortness of breath. Denies diarrhea , cough, headache or dizziness. She does complain of generalized weakness. Patient has followed up regularly with oncology. She has been scheduled to undergo palliative chemotherapy. Patient has also been scheduled for outpatient celiac plexus block. She will also undergo port placement soon. Initial evaluation is negative. CT of the abdomen and pelvis revealed interval progression of the pancreatic mass. CT of the brain is negative. Lipase is within normal limits. Patient is being admitted for pain control. Oncology consult pending. Patient and have been explained about her condition and plan Of care. They understood and agreed, no unanswered questions. CODE STATUS full code. Past Med Surg Social Fam HX - Past Medical History Medical history: cancer, other Psychiatric history: no psych history - Past Surgical History Surgical History: (Rate) - Social History Smoking Status: Former smoker Smokeless Tobacco Status: No Alcohol use: rarely Drug use: none - Family History Mother Living Status: Hx Family Cardiac Disorders: Yes (Heart Attack) Hx Family Endocrine Disorder: Yes (DM) Father Living Status: Internal Medicine - H&P: Meds Ondansetron HCl [Zofran] 4 mg PO Q4-6H PRN 04/14/17 [History] HYDROcodone/Acet 5/325 mg [Roxana 5-325 mg] 1 tab PO Q6HR PRN #20 tablet [Rx] Nicotine Patch [Nicoderm] 21 mg TD DAILY #30 patch.td24 04/18/17 [Rx] Omeprazole 20 mg PO DAILY #30 tablet. 04/18/17 [Rx] Sennosides/Docusate Sodium [Senna Plus] 1 each PO BID PRN #30 tablet 04/18/17 [ Rx] FentaNYL PATCH [Duragesic] 25 mcg TD Q72H #10 patch.td72 04/30/17 [Rx] Hydromorphone HCl [Dilaudid] 2 mg PO Q4H PRN #60 tablet 04/30/17 [Rx] Allergies No Known Allergies Allergy (Verified 04/13/17 22:17) All Systems PM: A 10-system review of systems was performed and is negative for pertinent findings except as documented above in the HPI. - Constitutional Constitutional: fatigue, weakness, no fever(s) - EENT Eyes: no blurry vision - Cardiovascular Cardiovascular ROS IM: no chest pain, no dyspnea, no dyspnea on exertion, no lightheadedness, no syncope - Respiratory Respiratory: no cough, no dyspnea, no dyspnea on exertion, no wheezing, no chest congestion - Gastrointestinal Gastrointestinal: abdominal pain, bloating, cramping, nausea, no diarrhea, no hematemesis, no melena, no vomiting - Genitourinary Genitourinary: no dysuria - Neurological Neurological ROS: no abnormal gait, no confusion, no focal weakness, no loss of vision, no numbness, no tingling - Constitutional Vitals: Temp Pulse Resp BP Pulse Ox 97.7 F 74 16 95/59 96 05/06/17 22:57 05/06/17 22:57 05/07/17 03:17 05/07/17 03:17 05/06/17 22:57 General appearance: Present: cachectic, A&O X 3, pleasant, no acute distress, answers questions appropriately - Head Head exam: Present: atraumatic - ENT ENT exam: Present: mucous membranes dry - Neck Neck exam general surgery: Present: supple - Respiratory Respiratory exam: Present: CTAB. Absent: rhonchi, wheezes, tachypnea - Cardiovascular Cardiovascular exam: Present: RRR, +S1, +S2 - GI/Abdominal GI/Abdominal exam: Present: soft, tenderness (Mild epigastric and periumbilical tenderness), no peritoneal signs. Absent: distended, guarding, rigid - Extremities Exam Extremities exam: Present: radial pulses palpable and symetrical. Absent: cyanotic, pedal edema, tenderness - Neurological Exam Neurological exam: Present: alert, oriented X3, no focal deficits Internal Med - H&P Results - Labs CBC & Chem 7: 05/07/17 00:29 05/07/17 00:29
[2017-05-07 05:22] LABS: Basophils % 0.4 %; Eosinophils % 0.7 %; Hematocrit 35.6 % (35.3-44.9); Immature Granulocytes % 0.2 % (0-4); Lymphocytes % 36.3 %; Mean Corpuscular HGB Conc 35.1 g/dL (31.6-35.5); Mean Corpuscular Hemoglobin 30.8 pg (28.0-33.3); Mean Corpuscular Volume 87.7 fL (83.0-100.0); Mean Platelet Volume 9.1 fL (9.4-12.4); Monocytes # 0.7 K/mcL (0.0-1.3); Monocytes % 12.3 %; Neutrophils # 2.8 K/mcL (1.6-8.9); Platelet Count 277 K/mcL (140-400); Red Blood Count 4.06 M/mcL (3.82-4.97); Red Cell Distribution Width 12.1 % (11.5-14.5); Segmented Neutrophils % 50.1 %
[2017-05-07 05:24] LABS: Hemoglobin 12.5 g/dL (11.5-15.4)
[2017-05-07 05:27] LABS: INR 1.1; Prothrombin Time 12.4 Seconds (9.4-12.1)
[2017-05-07 05:35] LABS: Alanine Aminotransferase 11 Units/L (0-55); Alkaline Phosphatase 71 Units/L (38-126); Aspartate Amino Transferase 12 Units/L (5-34); BUN/Creatinine Ratio 15 (6-26); Bilirubin,Total 0.4 mg/dL (0.2-1.2); Blood Urea Nitrogen 8 mg/dL (7-20); Calcium 8.9 mg/dL (8.6-10.8); Carbon Dioxide 37 mEq/L (19-29); Chloride 91 mEq/L (98-109); Glucose 112 mg/dL (70-99); Osmolality,Calculated 279 (280-300); Sodium 135 mEq/L (136-145); eGFR For African Americans > 60 (> 60); eGFR For Non-African Americans > 60 (> 60)
[2017-05-07] MEDS: *HR* Heparin 5,000 UNIT/ML VIAL SQ SCH ×2 (05:38→17:34)
[2017-05-07] MEDS: Famotidine 20 MG/2 ML VIAL IVP SCH ×2 (05:38→17:32)
[2017-05-07] MEDS: 0.9 % Sodium Chloride 1,000 ML IVC SCH ×2 (05:38→22:34)
[2017-05-07] MEDS: *HR* Morphine 2 MG/ML SYRINGE IVP PRN ×4 (05:43→22:28)
[2017-05-07] MEDS ORDERED: Potassium Chloride 40 MEQ, Lidocaine 1% 2 ML in D5% in Water 500 ML IVPB ONE (07:34)
--- NOTE | 2017-05-07 09:34 | Event Note ---
Date of Encounter: 05/07/17 Time of Encounter: 09:24 Patient is a 71y/o female with PMH of recently diagnosed metastatic pancreatic adenocarcinoma who is admitted for intractable abdominal pain associated with nausea and vomiting. Patient is seen and examined at bedside. Patient reports of pain being better controlled with IV pain medications. reports of not starting any chemotherapy as of yet and her primary oncologist is Dr. Robles. Patient reports of improvement in her nausea and is willing to try a clear liquid diet. Will start clear liquid diet, advance as tolerated Pain control machine scallop cutter oncologist consulted and will see the patient today K supplemented for hypokalemia will continue to closely monitor.
[2017-05-07] MEDS: Nicotine 21 MG PATCH.TD24 TD SCH (10:16)
--- NOTE | 2017-05-07 10:23 | Oncology Inp Consult Note ---
Date of Encounter: 05/07/17 Time of Encounter: 10:18 Assessment and Plan (1) Pancreatic neoplasm Status: Acute Assessment and plan: I explained to Ms. Canas and her the results of her recent biopsy consistent with pancreatic cancer. She was uncertain about the staging. I informed her that in view of the of CT abdomen/chest showing subcentimeter pulmonary nodules and presence of multiple liver lesions with low attenuation ( largest in the left subcapsular region), her likely stage was IV. I explained that stage IV is incurable, but treatable. I offered to discuss prognosis information if she was interested, but she declined to discuss prognosis at this time. - We discussed the management of palliative chemotherapy. she was scheduled to receive FOLFIRINOX, but in view of her recent hospital admissions she may need re adjustment of FOLFIRINOX's dose or an alternative regimen. She will follow up with her primary oncologist to discuss this options. I paged Dr. Temple to discuss the above plan, awaiting for answer. -There was considerations for a IR celiac blockage procedure. will ask primary team to discuss with IR whether this procedure could be done as inpatient, ,as well as the mediport. - At this time her management should be oriented to pain management and poor PO tolerance. Once her pain is appropriately controlled and she tolerates PO diet, she could be discharged home with short follow up with Dr. Temple to discuss chemotherapy management and other supportive options. - I'd suggest to increase the dose of fentanyl patch in view that her pain seems to be uncontrolled. - Her CT revealed stool accumulation in her colon, what may be contributing to her pain. I would suggest aggressive bowel regimen. (2) Abdominal pain Status: Acute Assessment and plan: As described in previous section. Qualifiers: Abdominal location: unspecified location Qualified Code(s): R10.9 - Unspecified abdominal pain - Data of Consult Requesting Physician: Catarina Albarran MD Primary Care Provider: PCP NO - Consult Narrative Reason for consult: management of likely advanced pancreatic cancer History of present illness: Ms. Canas is a 71 year old female with recently diagnosed pancreatic cancer, likely stage IV in view of imaging revealing lung and liver lesions concerning for metastasis. She is presenting now to the hospital due to worsening abdominal pain, poor po tolerance and generalized weakness. she was diagnosed with pancreatic cancer based on EUS biopsy completed on april [address] Sanches, that revealed adenocarcinoma. A CT scan from april 14, 2017 revealed a new 2.4 cm hypodense lesion in the right hepatic dome, along with an ill-defined hypodense mass of 4.2 x 6.1 cm involving the pancreatic body. 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 She reports that her abdomina pain is going on for a couple of months, gradually worsening in despite of being taken dilaudid at home along with fentanyl patch. There were plans to refer her to IR for celiac blockage. She is being followed by her oncologist Dr. Temple. There were plans to start FOLFIRINOX for palliative chemo, along with IR port ( that had not been scheduled yet). She was uncertain about the stage prior to this hospitalization. Reports that prior to admission she experienced tingling and weakness in upper and lower extremities(left mostly) that resolved after receiving IV fluids and K supplementation. She expressed reluctance to get another MRI due to long duration and uncontrolled anxiety. She reports that lives about 45 minutes away from the cancer center. she is accompanied by her during the visit. Past Med Surg Social Fam HX - Past Medical History Medical history: cancer (Pancreatic cancer, likely stage IV), other Psychiatric history: no psych history - Past Surgical History Surgical History: (Rate) - Social History Smoking Status: Former smoker Smokeless Tobacco Status: No Alcohol use: rarely Drug use: none Additional social history: Lives [place] away from [facility]. being supported by - Family History Mother Living Status: Hx Family Cardiac Disorders: Yes (Heart Attack) Hx Family Endocrine Disorder: Yes (DM) Father Name: Ghanshyam Sabillon Living Status: Age at : 78 Cause of : kidney dx Hx Family Cardiac Disorders: No Hx Family Respiratory Disorders: No Hx Family Cancer: No Hx Family GI Disorders: No Hx Family Genitourinary Disorders: Yes Hx Family Endocrine Disorder: No Hx Family Musculoskeletal Disorders: No Hx Family Neuromuscular Disorders: No Hx Family Neurologic Disorders: No Hx Family HEENT Disorders: No Hx Family Autoimmune Disorders: No Hx Family Reproductive Disorders: No Medications and Allergies Ondansetron HCl [Zofran] 4 mg PO Q4-6H PRN 04/14/17 [History] Nicotine Patch [Nicoderm] 21 mg TD DAILY #30 patch.td24 04/18/17 [Rx] Omeprazole 20 mg PO DAILY #30 tablet. 04/18/17 [Rx] Sennosides/Docusate Sodium [Senna Plus] 1 each PO BID PRN #30 tablet 04/18/17 [ Rx] FentaNYL PATCH [Duragesic] 25 mcg TD Q72H #10 patch.td72 04/30/17 [Rx] Hydromorphone HCl [Dilaudid] 2 mg PO Q4H PRN #60 tablet 04/30/17 [Rx] Allergies No Known Allergies Allergy (Verified 04/13/17 22:17) Constitutional: Present: anorexia, fatigue, weakness, weight loss Ears: Present: as per HPI Nose, mouth and throat: Present: as per HPI Cardiovascular: Absent: chest pain, leg edema Respiratory: Absent: cough Gastrointestinal: Present: abdominal pain, cramping. Absent: dysphagia, hematochezia Neurological: Present: confusion, numbness Psychiatric: Present: anxiety Oncology - Exam - Constitutional Vitals: Temp Pulse Resp BP Pulse Ox 98 F 79 16 103/62 99 05/07/17 07:31 05/07/17 07:31 05/07/17 03:49 05/07/17 07:31 05/07/17 03:49 General appearance: cooperative, mild distress - Head Head exam: Present: normal inspection - Eye Eye exam: Present: PERRL - ENT ENT exam: Present: normal oropharynx - Respiratory Respiratory exam: Present: CTAB - Cardiovascular Cardiovascular exam: Present: RRR, +S1, +S2 - GI/Abdominal GI/Abdominal exam: Present: guarding, tenderness Additional comments: epigastric tenderness . - Extremities Exam Extremities exam: Present: normal inspection Oncology - Results - Labs Labs: Short CBC 05/07/17 Range/Units 04:29 WBC 5.6 (4.3-11.1) K/mcL Hgb 12.5 D (11.5-15.4) g/dL Hct 35.6 (35.3-44.9) % Plt Count 277 (140-400) K/mcL Neutrophils # 2.8 (1.6-8.9) K/mcL BMP 05/07/17 04:29 Sodium 135 L Potassium 3.0 L Chloride 91 L Carbon Dioxide 37 H BUN 8 Creatinine 0.55 L Glucose 112 H Calcium 8.9 Liver Function 05/07/17 Range/Units 04:29 Total Bilirubin 0.4 (0.2-1.2) mg/dL AST 12 (5-34) Units/L ALT 11 (0-55) Units/L Alkaline Phosphatase 71 (38-126) Units/L Albumin 3.0 L (3.5-5.0) g/dL - Imaging and Cardiology Chest x-ray Status: image reviewed by me Consult Discharge Plan - Plan Referrals: NO,PCP [Primary Care Provider] -
[2017-05-07] MEDS: Potassium Chloride Elixir 20 MEQ/15 ML UDC PO SCH ×2 (10:28→18:44)
[2017-05-07] MEDS ORDERED: ALPRAZolam 0.25 MG TABLET PO ONE (21:00)
[2017-05-08 04:45] LABS: Basophils % 0.6 %; Eosinophils % 0.6 %; Hematocrit 33.9 % (35.3-44.9); Hemoglobin 11.8 g/dL (11.5-15.4); Immature Granulocytes % 0.2 % (0-4); Lymphocytes # 1.3 K/mcL (0.6-4.6); Mean Corpuscular HGB Conc 34.8 g/dL (31.6-35.5); Mean Corpuscular Hemoglobin 31.1 pg (28.0-33.3); Mean Corpuscular Volume 89.4 fL (83.0-100.0); Monocytes # 0.6 K/mcL (0.0-1.3); Neutrophils # 3.2 K/mcL (1.6-8.9); Platelet Count 250 K/mcL (140-400); Red Blood Count 3.79 M/mcL (3.82-4.97); Red Cell Distribution Width 12.3 % (11.5-14.5); Segmented Neutrophils % 61.6 %
[2017-05-08 04:59] LABS: BUN/Creatinine Ratio 9 (6-26); Calcium 8.7 mg/dL (8.6-10.8); Carbon Dioxide 29 mEq/L (19-29); Chloride 101 mEq/L (98-109); Glucose 111 mg/dL (70-99); Magnesium 1.7 mg/dL (1.6-2.6); Osmolality,Calculated 284 (280-300); Phosphorous 3.4 mg/dL (2.3-4.7); Potassium 3.3 mEq/L (3.5-4.5); Sodium 138 mEq/L (136-145); eGFR For African Americans > 60 (> 60); eGFR For Non-African Americans > 60 (> 60)
[2017-05-08 05:02] LABS: Blood Urea Nitrogen 5 mg/dL (7-20)
[2017-05-08] MEDS: *HR* Heparin 5,000 UNIT/ML VIAL SQ SCH ×2 (05:55→19:48)
[2017-05-08] MEDS: Famotidine 20 MG/2 ML VIAL IVP SCH (05:57)
[2017-05-08] MEDS ORDERED: *HR* FentaNYL PATCH 25 MCG PATCH TD SCH (06:00)
[2017-05-08] MEDS: Sennosides/Docusate Sodium TABLET PO SCH ×2 (09:39→19:48)
[2017-05-08] MEDS: Potassium Chloride Elixir 20 MEQ/15 ML UDC PO SCH ×2 (09:39→19:48)
[2017-05-08] MEDS: Nicotine 21 MG PATCH.TD24 TD SCH (09:39)
--- NOTE | 2017-05-08 10:37 | Oncology Inp Progress Note ---
Date of Encounter: 05/08/17 Time of Encounter: 10:35 (1) Pancreatic neoplasm Current Visit: Yes Status: Acute Assessment and plan: I updated Ms. Canas, her daughter and about the discussion of the tumor boards. Her pancreatic cancer is consistent with stage IV in view of the multiple liver lesions , largest at the subcapsular region, along with concerning pulmonary lesions. She expressed understanding that her stage is incurable and expressed her decision to pursue treatment. - Her pain today is better controlled, but still significantly affecting her quality of life. She would benefit from a palliative care consult for pain management. As discussed with IR, we will attempt to set up her IR celiac block procedure during her inpatient stay. She will need also a mediport under IR guidance, this could be set up as outpatient ( shortly after discharge), if not possible to arrange during current hospital stay. - She is experiencing significant anxiety, what probably is contributing to her pain. As described above, consider palliative care consult. I'd recommend ativan low dose PRN for now. - She reports constipation, probably opiate induced. Consider escalate in her bowel regimen. she reports good response to milk of Mg at home, this could be tried if not done yet. If persistent constipation in AM, may consider an enema. - At the end of the visit and outside the patient room, her daughter inquired about her prognosis. She was informed that for patients who tolerate and respond to chemotherapy, the prognosis is probably in the order of 9-10 months, although this could be fluctuate significant for factors such as performance status and status of acute comorbidities. - she will need to follow up with primary oncologist Dr. Temple for an assessment prior to first day of palliative chemotherapy ( reduced dose of FOLFIRINOX). (2) Abdominal pain Current Visit: No Status: Acute Assessment and plan: As described in previous section. Qualifiers: Abdominal location: unspecified location Qualified Code(s): R10.9 - Unspecified abdominal pain Oncology: Subj Interval history: Patient reports being constipated, now bowel movement since last . Reports that miralax helps at home. reports that pain is persistent in her epigastric/mesogastric area, but better controlled today. Daughter and present at the room during the visit. - Constitutional Vitals: Vital Signs Temp Pulse Resp BP Pulse Ox 05/08/17 07:57 98.4 F 87 18 137/80 98 05/08/17 03:55 97.4 F L 78 15 115/85 97 05/07/17 23:19 98.2 F 67 17 133/79 99 05/07/17 20:20 100 05/07/17 19:00 98 F 70 16 125/66 100 05/07/17 17:45 73 16 130/80 05/07/17 16:22 97.7 F 66 115/67 05/07/17 11:28 98.2 F 71 16 113/64 96 Intake and Output 05/07/17 05/08/17 05/08/17 23:59 07:59 15:59 Intake Total 1682 / 1682 30 / 30 Output Total 0 / 0 1050 / 1050 Balance 1682 / 1682 -1020 / -1020 Intake: IV Fluids 1522 / 1522 0.9 % Sodium Chloride 1, 1000 / 1000 000 ML @ 80 mls/hr IVC . [id number] MICHELLE Rx#: [id number] KCl 40 MEQ Xylocaine 2 ML 522 / 522 In Dextrose 5% 500 ML @ 130.5 mls/hr IVPB ONCE ONE Rx#:[id number] Oral 160 / 160 30 / 30 Output: Urine 0 / 0 1050 / 1050 Other: # Voids 2 1 Blood Glucose* 134 97 - Head Head exam: Present: normal inspection - Respiratory Respiratory exam: Present: CTAB - Cardiovascular Cardiovascular exam: Present: +S1, +S2 - GI/Abdominal Additional comments: tenderness with palpation in epigastric and mesogastric area. no rebound tenderness. BS present. - Extremities Exam Extremities exam: Present: normal inspection Oncology: Obj Data - Labs CBC & Chem 7: 05/08/17 03:48 05/08/17 03:48 Labs: Laboratory Results - last 24 hr 05/07/17 05/07/17 05/07/17 07:35 11:33 16:28 WBC RBC Hgb Hct MCV MCH MCHC RDW Plt Count MPV Immature Gran % Seg Neutrophils % Lymphocytes % Monocytes % Eosinophils % Basophils % Neutrophils # Lymphocytes # Monocytes # Eosinophils # Basophils # Sodium Potassium Chloride Carbon Dioxide BUN Creatinine Est GFR ( Amer) Est GFR (Non-Af Amer) BUN/Creatinine Ratio Glucose POC Glucose 117 H 156 H 104 H Calculated Osmolality Calcium Phosphorus Magnesium 07/05/08/17 05/08/17 22:11 03:48 03:48 WBC 5.2 RBC 3.79 L Hgb 11.8 Hct 33.9 L MCV 89.4 MCH 31.1 MCHC 34.8 RDW 12.3 Plt Count 250 MPV 9.0 L Immature Gran % 0.2 Seg Neutrophils % 61.6 Lymphocytes % 25.0 Monocytes % 12.0 Eosinophils % 0.6 Basophils % 0.6 Neutrophils # 3.2 Lymphocytes # 1.3 Monocytes # 0.6 Eosinophils # 0.0 Basophils # 0.0 Sodium 138 Potassium 3.3 L Chloride 101 Carbon Dioxide 29 BUN 5 L Creatinine 0.55 L Est GFR ( Amer) > 60 Est GFR (Non-Af Amer) > 60 BUN/Creatinine Ratio 9 Glucose 111 H POC Glucose 134 H Calculated Osmolality 284 Calcium 8.7 Phosphorus 3.4 Magnesium 1.7 - ABG Interpretation ABG results: PT/INR, D-dimer PT 12.4 Seconds (9.4-12.1) H 05/07/17 04:29 Consult Discharge Plan - Plan Referrals: Kelsea Kauffman TITLE DEPARTMENT MANAGER [Advanced Practice Nurse] - 05/15/17 1:00 pm
--- NOTE | 2017-05-08 10:42 | Internal Med Progress Note ---
Date of Encounter: 05/08/17 Time of Encounter: 10:40 - Assessment and plan (1) Constipation Current Visit: Yes Status: Acute Assessment and plan: narcotic induced constipation continue laxative support added Enema x 1 dose Qualifiers: Constipation type: drug induced constipation Qualified Code(s): K59.03 - Drug induced constipation (2) Abdominal pain Current Visit: Yes Status: Acute Assessment and plan: Secondary to worsening of pancreatic mass increased Fentanyl to 50mcg TD continue IV pain medications patient requests to be on full liquid diet will advance as tolerated Qualifiers: Abdominal location: generalized Qualified Code(s): R10.84 - Generalized abdominal pain (3) Hypokalemia Current Visit: Yes Status: Acute Assessment and plan: K supplemented will continue to monitor electrolytes and replace as needed (4) Pancreatic cancer metastasized to lung Current Visit: No Status: Chronic (5) DVT prophylaxis Current Visit: No Status: Acute Assessment and plan: Heparin SQ - Subjective Interval history: Patient seen and examined with family at bedside. Pt reports of being severely constipated and is requesting enema support. She is scheduled for mediport insertion by IR today. Pain is better controlled. No overnight issues reported. Pt states she was able to sleep through the night with Xanax and would like to continue with that therapy. Detailed discussion was held with the patient and family. They are all concerned about patient's severe weakness and initiation of chemotherapy and other surgical interventions. Patient and family are reassured that the goal of this hospital stay to get patient's pain control and titrate her off the IV pain medications. Her chemotherapy and cancer treatment would be catered to her and her primary oncologist has been made aware by the ammonia operator oncologist. - Constitutional Vitals: Temp Pulse Resp BP Pulse Ox 98.4 F 87 18 137/80 98 05/08/17 07:57 05/08/17 07:57 05/08/17 07:57 05/08/17 07:57 05/08/17 07:57 General appearance: Present: cachectic, cooperative, A&O X 3, pleasant, no acute distress, answers questions appropriately - Head Head exam: Present: atraumatic, normocephalic - Eye Eye exam: Present: conjuntiva pink, sclera anicteric - Respiratory Respiratory exam: Absent: respiratory distress, wheezes - Cardiovascular Cardiovascular exam: Present: RRR, +S1, +S2. Absent: diastolic murmur, gallop, rubs, systolic murmur - GI/Abdominal GI/Abdominal exam: Present: normal bowel sounds, soft, no peritoneal signs. Absent: distended, tenderness - Extremities Exam Extremities exam: Present: warm, radial pulses palpable and symetrical. Absent : calf tenderness, cyanotic, pedal edema - Neurological Exam Neurological exam: Present: alert, oriented X3 - Psychiatric Psychiatric exam: Present: normal affect, normal mood Internal Medicine: Result - Labs CBC & Chem 7: 05/08/17 03:48 05/08/17 03:48 Labs: Short CBC 05/08/17 Range/Units 03:48 WBC 5.2 (4.3-11.1) K/mcL Hgb 11.8 (11.5-15.4) g/dL Hct 33.9 L (35.3-44.9) % Plt Count 250 (140-400) K/mcL Neutrophils # 3.2 (1.6-8.9) K/mcL BMP 05/08/17 03:48 Sodium 138 Potassium 3.3 L Chloride 101 Carbon Dioxide 29 BUN 5 L Creatinine 0.55 L Glucose 111 H Calcium 8.7 - ABG Interpretation ABG results: PT/INR, D-dimer PT 12.4 Seconds (9.4-12.1) H 05/07/17 04:29 Consult Discharge Plan - Plan Referrals: Kelsea Kauffman, PUBLIC SERVICES ASSISTANT [Advanced Practice Nurse] - 05/15/17 1:00 pm
[2017-05-08] MEDS ORDERED: ALPRAZolam 0.25 MG TABLET PO PRN ×2 (10:44)
[2017-05-08] MEDS ORDERED: Heparin 1,000 UNITS/500 mL NS 500 ML ONE (11:00)
--- NOTE | 2017-05-08 11:55 | Electrocardiograph Report ---
[address] [place] [address] Test Date: 2017-05-07 Pat Name: Corinne Canas Department: 103 Room: 2NE17 Gender: F Vegetable Cook: : 1945 Requested By: Tate Gipson Order Number: [id number] Reading MD: Alek Pizarro MD Measurements Intervals [place] Rate: 64 P: 81 WI: 154 QRS: 67 QRSD: 83 T: 60 QT: 413 QTc: 422 Interpretive Statements SINUS RHYTHM LEFT ATRIAL ENLARGEMENT INFERIOR ISCHEMIA Electronically Signed On 05-08-2017 11:53:57 EDT by Alek Pizarro MD
--- NOTE | 2017-05-08 12:54 | History & Physical Report ---
Date of Encounter: 05/08/17 Time of Encounter: 12:53 24 Hour HP Update - Instructions Instructions: If the History and Physical is less than 30 days old and was completed prior to A.M. admission and or procedure and has NOT been updated on calendar day of procedure please complete this update prior to performing procedure. - Update Patient reports changes in Medical Condition: No Changes in examination, assessment, or condition: No Changes in Medication: No Preop tests/diagnostics Reviewed: Yes Surgery Remains Indicated: Yes Consent for Planned Operative Procedure(s) Verified: Yes
--- NOTE | 2017-05-08 12:56 | Pre-Sedation Evaluation ---
Pre-sedation evaluation - Pre-sedation checklist Date of procedure: 05/08/17 Recent Vitals: Last Vital Signs Temp 98.4 F 05/08/17 07:57 Pulse 87 05/08/17 07:57 Resp 18 05/08/17 07:57 BP 137/80 05/08/17 07:57 Pulse Ox 98 05/08/17 07:57 Dietary Status: NPO 6 hours prior to procedure Airway Assessment: Patient can open mouth completely, TMJ function normal, Micrognathia (under-bite, receding chin) absent, Neck with adequate range of motion ASA Classification *see protocol: CLASS II-Mild systemic disease Plan of Care: Pt appropriate candidate for procedure/moderate/conscious sedation , Risks/benefits of procedure/sedation discussed w/ patient/family, If not NPO; Risk of intake outweiged by necessity to perform procedure
[2017-05-08] MEDS ORDERED: 0.9 % Sodium Chloride 500 ML ONE (13:03)
[2017-05-08] MEDS ORDERED: ceFAZolin 2,000 MG in D5% in Water 100 ML IVPB ONE (13:10)
[2017-05-08] MEDS: *HR* Midazolam HCl 2 MG/2 ML VIAL IVP PRN ×2 (13:19→13:30)
[2017-05-08] MEDS: *HR* FentaNYL (PF) 100 MCG/2 ML VIAL IVP PRN ×2 (13:20→13:30)
--- NOTE | 2017-05-08 13:35 | Oncology Inp Consult Note ---
Date of Encounter: 05/06/17 Time of Encounter: 14:00 Assessment and Plan (1) Pancreatic neoplasm Status: Acute Assessment and plan: I updated Ms. Canas, her daughter and about the discussion of the tumor boards. Her pancreatic cancer is consistent with stage IV in view of the multiple liver lesions , largest at the subcapsular region, along with concerning pulmonary lesions. She expressed understanding that her stage is incurable and expressed her decision to pursue treatment. - Her pain today is better controlled, but still significantly affecting her quality of life. She would benefit from a palliative care consult for pain management. As discussed with IR, we will attempt to set up her IR celiac block procedure during her inpatient stay. She will need also a mediport under IR guidance, this could be set up as outpatient ( shortly after discharge), if not possible to arrange during current hospital stay. - She is experiencing significant anxiety, what probably is contributing to her pain. As described above, consider palliative care consult. I'd recommend ativan low dose PRN for now. - She reports constipation, probably opiate induced. Consider escalate in her bowel regimen. she reports good response to milk of Mg at home, this could be tried if not done yet. If persistent constipation in AM, may consider an enema. - At the end of the visit and outside the patient room, her daughter inquired about her prognosis. She was informed that for patients who tolerate and respond to chemotherapy, the prognosis is probably in the order of 9-10 months, although this could be fluctuate significant for factors such as performance status and status of acute comorbidities. - she will need to follow up with primary oncologist Dr. Temple for an assessment prior to first day of palliative chemotherapy ( reduced dose of FOLFIRINOX). (2) Abdominal pain Status: Acute Assessment and plan: As described in previous section. Qualifiers: Abdominal location: unspecified location Qualified Code(s): R10.9 - Unspecified abdominal pain - Data of Consult Requesting Physician: Catarina Albarran MD Primary Care Provider: PCP NO - Consult Narrative History of present illness: Please see note from 05/06/17 for details ( " in reports") Past Med Surg Social Fam HX - Past Medical History Medical history: cancer (Pancreatic cancer, likely stage IV), other Psychiatric history: no psych history - Past Surgical History Surgical History: (Rate) - Social History Smoking Status: Former smoker Smokeless Tobacco Status: No Alcohol use: rarely Drug use: none - Family History Mother Living Status: Hx Family Cardiac Disorders: Yes (Heart Attack) Hx Family Endocrine Disorder: Yes (DM) Father Name: Ghanshyam Sabillon Living Status: Age at : 78 Cause of : kidney dx Hx Family Cardiac Disorders: No Hx Family Respiratory Disorders: No Hx Family Cancer: No Hx Family GI Disorders: No Hx Family Genitourinary Disorders: Yes Hx Family Endocrine Disorder: No Hx Family Musculoskeletal Disorders: No Hx Family Neuromuscular Disorders: No Hx Family Neurologic Disorders: No Hx Family HEENT Disorders: No Hx Family Autoimmune Disorders: No Hx Family Reproductive Disorders: No Medications and Allergies Ondansetron HCl [Zofran] 4 mg PO Q4-6H PRN 04/14/17 [History] Nicotine Patch [Nicoderm] 21 mg TD DAILY #30 patch.td24 04/18/17 [Rx] Omeprazole 20 mg PO DAILY #30 tablet. 04/18/17 [Rx] Sennosides/Docusate Sodium [Senna Plus] 1 each PO BID PRN #30 tablet 04/18/17 [ Rx] FentaNYL PATCH [Duragesic] 25 mcg TD Q72H #10 patch.td72 04/30/17 [Rx] Hydromorphone HCl [Dilaudid] 2 mg PO Q4H PRN #60 tablet 04/30/17 [Rx] Allergies No Known Allergies Allergy (Verified 04/13/17 22:17) Oncology - Exam - Constitutional Vitals: Temp Pulse Resp BP Pulse Ox 98.4 F 106 22 136/74 100 05/08/17 07:57 05/08/17 13:31 05/08/17 13:31 05/08/17 13:31 05/08/17 13:31 Oncology - Results - Labs Labs: Short CBC 05/08/17 Range/Units 03:48 WBC 5.2 (4.3-11.1) K/mcL Hgb 11.8 (11.5-15.4) g/dL Hct 33.9 L (35.3-44.9) % Plt Count 250 (140-400) K/mcL Neutrophils # 3.2 (1.6-8.9) K/mcL BMP 05/08/17 03:48 Sodium 138 Potassium 3.3 L Chloride 101 Carbon Dioxide 29 BUN 5 L Creatinine 0.55 L Glucose 111 H Calcium 8.7 Consult Discharge Plan - Plan Referrals: Kelsea Kauffman CNP [Advanced Practice Nurse] - 05/15/17 1:00 pm
--- NOTE | 2017-05-08 13:49 | IR Procedure Note ---
Date of procedure: 05/08/17 Consent Obtained: Verbal consent, Written consent Timeout: Correct patient and procedure verified, Correct site verified, Time out performed, Skin prep completed Local anesthetic: Lidocaine 1% Indications: pancreatic cancer Procedure Performed: port placement Site/Technique: RIJ Estimated blood loss (cc): 1 Complications: None; Tolerated procedure well Post Procedure Treatment Plan: bedrest x 1 hour
[2017-05-08] MEDS: *HR* FentaNYL PATCH 50 MCG PATCH TD SCH (14:50)
[2017-05-08] MEDS: 0.9 % Sodium Chloride 1,000 ML IVC SCH (19:49)
[2017-05-08] MEDS: ALPRAZolam 0.25 MG TABLET PO PRN (21:50)
[2017-05-09 04:42] LABS: Basophils % 0.5 %; Eosinophils # 0.1 K/mcL (0.0-0.6); Hematocrit 35.1 % (35.3-44.9); Hemoglobin 12.1 g/dL (11.5-15.4); Lymphocytes % 33.3 %; Mean Corpuscular HGB Conc 34.5 g/dL (31.6-35.5); Mean Corpuscular Hemoglobin 30.7 pg (28.0-33.3); Mean Corpuscular Volume 89.1 fL (83.0-100.0); Mean Platelet Volume 9.3 fL (9.4-12.4); Monocytes # 0.8 K/mcL (0.0-1.3); Monocytes % 12.4 %; Neutrophils # 3.2 K/mcL (1.6-8.9); Platelet Count 242 K/mcL (140-400); Red Blood Count 3.94 M/mcL (3.82-4.97); Red Cell Distribution Width 12.4 % (11.5-14.5); Segmented Neutrophils % 52.8 %
[2017-05-09 04:56] LABS: BUN/Creatinine Ratio 10 (6-26); Calcium 8.8 mg/dL (8.6-10.8); Carbon Dioxide 31 mEq/L (19-29); Chloride 101 mEq/L (98-109); Glucose 103 mg/dL (70-99); Magnesium 1.5 mg/dL (1.6-2.6); Osmolality,Calculated 284 (280-300); Phosphorous 3.6 mg/dL (2.3-4.7); Potassium 3.1 mEq/L (3.5-4.5); Sodium 138 mEq/L (136-145); eGFR For African Americans > 60 (> 60); eGFR For Non-African Americans > 60 (> 60)
[2017-05-09 05:00] LABS: Blood Urea Nitrogen 5 mg/dL (7-20)
[2017-05-09] MEDS: *HR* Heparin 5,000 UNIT/ML VIAL SQ SCH ×2 (06:23→18:32)
[2017-05-09] MEDS: 0.9 % Sodium Chloride 1,000 ML IVC SCH (06:24)
[2017-05-09] MEDS ORDERED: Magnesium Sulfate 1 GM in D5% in Water 100 ML IVPB ONE (07:25)
[2017-05-09] MEDS ORDERED: Acetaminophen 325 MG TABLET PO PRN (08:55)
--- NOTE | 2017-05-09 09:10 | Oncology Inp Progress Note ---
Date of Encounter: 05/09/17 Time of Encounter: 09:08 (1) Pancreatic neoplasm Current Visit: Yes Status: Acute Assessment and plan: Her pain has improved, so there is not indication for IR celiac block procedure. Regardless of that, patient declined the procedure yesterday due to concerns about potential side effects., however she would like to consider in the future if her pain becomes uncontrolled. - she feels satisfied with the current pain management. her pain was rated as 2/ 10. - She will need to follow up with Dr. Robles as outpatient. FOLFIRNOX is being considered for palliative management. - She is experiencing opiate-induced constipation. Please escalate in bowel regimen, and consider enema if not response. (2) Abdominal pain Current Visit: No Status: Acute Assessment and plan: As described in previous section. Qualifiers: Abdominal location: unspecified location Qualified Code(s): R10.9 - Unspecified abdominal pain Oncology: Subj Interval history: Patient reports feeling much better today, with her abdominal pain decreasing to level 2/10. She decided to hold off on any plans for celiac block ( during the discussion of the potential side effects associated with the procedure). She feels glad that she decided to hold off onto that decision because her pain has improved, although would like to consider it in the future if her pain becomes uncontrolled. Still constipated, it's been 8 days without BM. - Constitutional Vitals: Vital Signs Temp Pulse Resp BP Pulse Ox 05/09/17 06:55 98.2 F 82 17 138/79 98 05/09/17 04:15 98.1 F 88 15 104/76 95 05/08/17 16:24 98.2 F 87 15 146/94 96 05/08/17 14:34 98.5 F 90 16 138/76 98 05/08/17 13:39 111 16 130/69 100 05/08/17 13:34 108 20 139/73 100 05/08/17 13:31 106 22 136/74 100 05/08/17 13:24 91 15 147/80 100 05/08/17 13:20 101 12 130/109 100 05/08/17 13:14 102 13 156/90 100 05/08/17 12:56 91 13 145/81 Intake and Output 05/08/17 05/09/17 05/09/17 23:59 07:59 15:59 Intake Total 360 / 360 1400 / 1400 360 / 360 Output Total 0 / 0 900 / 900 500 / 500 Balance 360 / 360 500 / 500 -140 / -140 Intake: IV Fluids 1000 / 1000 0.9 % Sodium Chloride 1, 1000 / 1000 000 ML @ 80 mls/hr IVC . [id number] MICHELLE Rx#: [id number] Oral 360 / 360 400 / 400 360 / 360 Output: Urine 0 / 0 900 / 900 500 / 500 Other: Meal Dinner Breakfast Percent of Meal Consumed 50% 100% Weight 44.4 kg Blood Glucose* 163 105 Patient Weight 05/09/17 23:59 Weight 44.4 kg - Head Head exam: Present: normal inspection - Respiratory Respiratory exam: Present: CTAB - Cardiovascular Cardiovascular exam: Present: +S1, +S2 - GI/Abdominal GI/Abdominal exam: Present: soft Additional comments: mild epigastric/mesogastric tenderness with palpation - Extremities Exam Extremities exam: Present: normal inspection Oncology: Obj Data - Labs CBC & Chem 7: 05/09/17 03:49 05/09/17 03:49 Labs: Laboratory Results - last 24 hr 05/08/17 05/08/17 05/08/17 07:55 16:42 19:25 WBC RBC Hgb Hct MCV MCH MCHC RDW Plt Count MPV Immature Gran % Seg Neutrophils % Lymphocytes % Monocytes % Eosinophils % Basophils % Neutrophils # Lymphocytes # Monocytes # Eosinophils # Basophils # Sodium Potassium Chloride Carbon Dioxide BUN Creatinine Est GFR ( Amer) Est GFR (Non-Af Amer) BUN/Creatinine Ratio Glucose POC Glucose 97 H 120 H 163 H Calculated Osmolality Calcium Phosphorus Magnesium 05/09/17 05/09/17 03:49 03:49 WBC 6.0 RBC 3.94 Hgb 12.1 Hct 35.1 L MCV 89.1 MCH 30.7 MCHC 34.5 RDW 12.4 Plt Count 242 MPV 9.3 L Immature Gran % 0.0 Seg Neutrophils % 52.8 Lymphocytes % 33.3 Monocytes % 12.4 Eosinophils % 1.0 Basophils % 0.5 Neutrophils # 3.2 Lymphocytes # 2.0 Monocytes # 0.8 Eosinophils # 0.1 Basophils # 0.0 Sodium 138 Potassium 3.1 L Chloride 101 Carbon Dioxide 31 H BUN 5 L Creatinine 0.50 L Est GFR ( Amer) > 60 Est GFR (Non-Af Amer) > 60 BUN/Creatinine Ratio 10 Glucose 103 H POC Glucose Calculated Osmolality 284 Calcium 8.8 Phosphorus 3.6 Magnesium 1.5 L - Impressions Impressions Guidance Needle Placement Ultrasound 05/08/17 00:00 IMPRESSION: 1. Right internal jugular vein 8-Citizen Of [place] single lumen power injectable port placement as discussed above. D/ / Alex Snow MD / Alex Snow MD Interpreting Provider: Alex Snow MD Insertion Tunneled Catheter 05/08/17 00:00 IMPRESSION: 1. Right internal jugular vein 8-Citizen Of [place] single lumen power injectable port placement as discussed above. D/ / Alex Snow MD / Alex Snow MD Interpreting Provider: Alex Snow MD - ABG Interpretation ABG results: PT/INR, D-dimer PT 12.4 Seconds (9.4-12.1) H 05/07/17 04:29 Consult Discharge Plan - Plan Referrals: Kelsea Kauffman PRINTING MANAGER [Advanced Practice Nurse] - 05/15/17 1:00 pm
[2017-05-09] MEDS: Potassium Chloride Elixir 20 MEQ/15 ML UDC PO SCH ×2 (09:27→19:37)
[2017-05-09] MEDS: Nicotine 21 MG PATCH.TD24 TD SCH (09:27)
[2017-05-09] MEDS: Sennosides/Docusate Sodium TABLET PO SCH ×2 (09:29→19:37)
--- NOTE | 2017-05-09 11:02 | Internal Med Progress Note ---
Date of Encounter: 05/09/17 Time of Encounter: 11:01 - Assessment and plan (1) Constipation Current Visit: Yes Status: Acute Assessment and plan: narcotic induced constipation continue laxative support Enema x 1 dose Qualifiers: Constipation type: drug induced constipation Qualified Code(s): K59.03 - Drug induced constipation (2) Abdominal pain Current Visit: Yes Status: Acute Assessment and plan: Secondary to worsening of pancreatic mass continue Fentanyl to 50mcg TD continue pain medications patient requests to be on full liquid diet will advance as tolerated Likely d/c in am if remains stable overnight Qualifiers: Abdominal location: generalized Qualified Code(s): R10.84 - Generalized abdominal pain (3) Hypokalemia Current Visit: Yes Status: Acute Assessment and plan: K supplemented will continue to monitor electrolytes and replace as needed (4) Pancreatic cancer metastasized to lung Current Visit: No Status: Chronic (5) DVT prophylaxis Current Visit: No Status: Acute Assessment and plan: Heparin SQ (6) Hypomagnesemia Current Visit: Yes Status: Acute Assessment and plan: Mg supplemented will continue to closely monitor electrolytes - Subjective Interval history: Patient seen and examined with family at bedside. Resting in bed and reports of feeling better compared to previous day. States she has improvement in her pain with the increase in her fentanyl patch dosing. Pt was not able to get enema yesterday but is requesting one today. Will provide her with enema support. Likely d/c in am if remains stable over night. - Constitutional Vitals: Temp Pulse Resp BP Pulse Ox 98.2 F 82 18 149/89 96 05/09/17 10:56 05/09/17 10:56 05/09/17 10:56 05/09/17 10:56 05/09/17 10:56 General appearance: Present: cachectic, cooperative, A&O X 3, pleasant, no acute distress, answers questions appropriately - Head Head exam: Present: atraumatic, normocephalic - Eye Eye exam: Present: conjuntiva pink, sclera anicteric - Respiratory Respiratory exam: Present: CTAB. Absent: accessory muscle use, rales, rhonchi, wheezes - Cardiovascular Cardiovascular exam: Present: RRR, +S1, +S2. Absent: diastolic murmur, gallop, rubs, systolic murmur - GI/Abdominal GI/Abdominal exam: Present: normal bowel sounds, soft, no peritoneal signs. Absent: distended, tenderness - Extremities Exam Extremities exam: Present: warm, radial pulses palpable and symetrical. Absent : calf tenderness, cyanotic, pedal edema - Neurological Exam Neurological exam: Present: alert, oriented X3 - Psychiatric Psychiatric exam: Present: normal affect, normal mood Internal Medicine: Result - Labs CBC & Chem 7: 05/09/17 03:49 05/09/17 03:49 Labs: Short CBC 05/09/17 Range/Units 03:49 WBC 6.0 (4.3-11.1) K/mcL Hgb 12.1 (11.5-15.4) g/dL Hct 35.1 L (35.3-44.9) % Plt Count 242 (140-400) K/mcL Neutrophils # 3.2 (1.6-8.9) K/mcL BMP 05/09/17 03:49 Sodium 138 Potassium 3.1 L Chloride 101 Carbon Dioxide 31 H BUN 5 L Creatinine 0.50 L Glucose 103 H Calcium 8.8 - ABG Interpretation ABG results: PT/INR, D-dimer PT 12.4 Seconds (9.4-12.1) H 05/07/17 04:29 - Impressions Impressions Guidance Needle Placement Ultrasound 05/08/17 00:00 IMPRESSION: 1. Right internal jugular vein 8-[place] single lumen power injectable port placement as discussed above. D/ / Alex Snow MD / Alex Snow MD Interpreting Provider: Alex Snow MD Insertion Tunneled Catheter 05/08/17 00:00 IMPRESSION: 1. Right internal jugular vein 8-[place] single lumen power injectable port placement as discussed above. D/ / Alex Snow MD / Alex Snow MD Interpreting Provider: Alex Snow MD Consult Discharge Plan - Plan Referrals: Kelsea Kauffman, ELECT[employer] RESOURCES LIBRARIAN [Advanced Practice Nurse] - 05/15/17 1:00 pm
[2017-05-09] MEDS ORDERED: Potassium Chloride Elixir 20 MEQ/15 ML UDC PO ONE (12:30)
[2017-05-09] MEDS: ALPRAZolam 0.25 MG TABLET PO PRN (22:06)
[2017-05-10 05:08] LABS: Basophils % 0.3 %; Eosinophils % 0.5 %; Hemoglobin 13.2 g/dL (11.5-15.4); Immature Granulocytes % 0.2 % (0-4); Lymphocytes # 1.2 K/mcL (0.6-4.6); Lymphocytes % 18.1 %; Mean Corpuscular HGB Conc 34.7 g/dL (31.6-35.5); Mean Corpuscular Hemoglobin 30.5 pg (28.0-33.3); Mean Corpuscular Volume 87.8 fL (83.0-100.0); Mean Platelet Volume 8.9 fL (9.4-12.4); Monocytes # 0.7 K/mcL (0.0-1.3); Monocytes % 10.5 %; Neutrophils # 4.5 K/mcL (1.6-8.9); Platelet Count 263 K/mcL (140-400); Red Blood Count 4.33 M/mcL (3.82-4.97); Red Cell Distribution Width 12.2 % (11.5-14.5); Segmented Neutrophils % 70.4 %
[2017-05-10 05:27] LABS: BUN/Creatinine Ratio 8 (6-26); Calcium 9.2 mg/dL (8.6-10.8); Carbon Dioxide 33 mEq/L (19-29); Chloride 99 mEq/L (98-109); Glucose 122 mg/dL (70-99); Magnesium 1.9 mg/dL (1.6-2.6); Osmolality,Calculated 282 (280-300); Phosphorous 3.6 mg/dL (2.3-4.7); Potassium 3.9 mEq/L (3.5-4.5); Sodium 137 mEq/L (136-145); eGFR For African Americans > 60 (> 60); eGFR For Non-African Americans > 60 (> 60)
[2017-05-10 05:31] LABS: Blood Urea Nitrogen 4 mg/dL (7-20)
[2017-05-10] MEDS: *HR* Heparin 5,000 UNIT/ML VIAL SQ SCH ×2 (06:28→18:05)
--- NOTE | 2017-05-10 09:46 | Internal Med Progress Note ---
Date of Encounter: 05/10/17 Time of Encounter: 09:44 - Assessment and plan (1) Constipation Current Visit: Yes Status: Acute Assessment and plan: narcotic induced constipation continue laxative support s/p enema and Mg Citrate patient reports of having a bowel movement Qualifiers: Constipation type: drug induced constipation Qualified Code(s): K59.03 - Drug induced constipation (2) Abdominal pain Current Visit: Yes Status: Acute Assessment and plan: Secondary to worsening of pancreatic mass continue Fentanyl to 50mcg TD continue pain medications patient requests to be on full liquid diet will advance as tolerated Likely d/c in am if remains stable overnight Qualifiers: Abdominal location: generalized Qualified Code(s): R10.84 - Generalized abdominal pain (3) Hypokalemia Current Visit: Yes Status: Resolved (4) Pancreatic cancer metastasized to lung Current Visit: No Status: Chronic (5) DVT prophylaxis Current Visit: No Status: Acute Assessment and plan: Heparin SQ (6) Hypomagnesemia Current Visit: Yes Status: Resolved - Subjective Interval history: Patient seen and examined with family at bedside. States she had minimal relief with the enema yesterday but was started on MgCitrate overnight, and has been able to move her bowels this morning. She reports of abd discomfort secondary to the constipation but states overall her pain is better controlled. She appears weak and frail compared to previous day and requests if she can stay another night due to her severe weakness. She has not been able to tolerate much PO intake since yesterday evening. - Constitutional Vitals: Temp Pulse Resp BP Pulse Ox 98.3 F 85 16 131/90 95 05/10/17 08:32 05/10/17 08:32 05/10/17 08:32 05/10/17 08:32 05/10/17 08:32 General appearance: Present: cachectic, cooperative, A&O X 3 (frail appearing), pleasant, no acute distress, answers questions appropriately - Head Head exam: Present: atraumatic, normocephalic - Eye Eye exam: Present: conjuntiva pink, sclera anicteric - Respiratory Respiratory exam: Present: CTAB. Absent: accessory muscle use, rales, rhonchi, wheezes - Cardiovascular Cardiovascular exam: Present: RRR, +S1, +S2. Absent: diastolic murmur, gallop, rubs, systolic murmur - GI/Abdominal GI/Abdominal exam: Present: normal bowel sounds, soft, no peritoneal signs. Absent: distended, tenderness - Extremities Exam Extremities exam: Present: warm, radial pulses palpable and symetrical. Absent : calf tenderness, cyanotic, pedal edema - Neurological Exam Neurological exam: Present: alert, oriented X3 - Psychiatric Psychiatric exam: Present: normal affect, normal mood Internal Medicine: Result - Labs CBC & Chem 7: 05/10/17 04:30 05/10/17 04:30 Labs: Short CBC 05/10/17 Range/Units 04:30 WBC 6.4 (4.3-11.1) K/mcL Hgb 13.2 (11.5-15.4) g/dL Hct 38.0 (35.3-44.9) % Plt Count 263 (140-400) K/mcL Neutrophils # 4.5 (1.6-8.9) K/mcL BMP 05/10/17 04:30 Sodium 137 Potassium 3.9 Chloride 99 Carbon Dioxide 33 H BUN 4 L Creatinine 0.48 L Glucose 122 H Calcium 9.2 - ABG Interpretation ABG results: PT/INR, D-dimer PT 12.4 Seconds (9.4-12.1) H 05/07/17 04:29 Consult Discharge Plan - Plan Referrals: Kelsea Kauffman CNP [Advanced Practice Nurse] - 05/15/17 1:00 pm
[2017-05-10] MEDS: *HR* HYDROcodone/Acet 5/325 mg TABLET PO PRN ×3 (09:54→21:53)
[2017-05-10] MEDS: Potassium Chloride Elixir 20 MEQ/15 ML UDC PO SCH ×2 (09:54→21:52)
[2017-05-10] MEDS: Nicotine 21 MG PATCH.TD24 TD SCH (09:54)
[2017-05-10] MEDS: Sennosides/Docusate Sodium TABLET PO SCH ×2 (09:54→21:52)
--- NOTE | 2017-05-10 10:51 | Oncology Inp Progress Note ---
Date of Encounter: 05/10/17 Time of Encounter: 10:50 (1) Pancreatic neoplasm Current Visit: Yes Status: Acute Assessment and plan: Her pain is better controlled at this time. Improved significantly after having BM today. Continue bowel regimen and current pain management. - She will need to follow up with Dr. Robles as outpatient. FOLFIRNOX is being considered for palliative management. (2) Abdominal pain Current Visit: No Status: Acute Assessment and plan: Improved after having BM as described above. Qualifiers: Abdominal location: unspecified location Qualified Code(s): R10.9 - Unspecified abdominal pain Oncology: Subj Interval history: Patient reports improvement of her abdominal pain after having a BM today, but does not feel ready to go home, mainly due to generalized weakness. Denies CP, SOB, fever. - Constitutional Vitals: Vital Signs Temp Pulse Resp BP Pulse Ox 05/10/17 10:09 95 05/10/17 08:32 98.3 F 85 16 131/90 95 05/10/17 05:22 99.1 F 94 15 126/76 94 05/10/17 00:41 98.0 F 90 14 144/92 94 05/09/17 20:33 97.9 F 84 17 127/74 94 05/09/17 14:35 80 17 137/77 97 05/09/17 11:31 77 97 05/09/17 10:56 98.2 F 82 18 149/89 96 Intake and Output 05/09/17 05/10/17 05/10/17 23:59 07:59 15:59 Intake Total 120 / 120 Balance 120 / 120 Intake: Oral 120 / 120 Other: Meal Breakfast Stool Size Moderate Stool Consistency liquid Stool Color Brown # Bowel Movements 1 Weight 45 kg Blood Glucose* 175 110 Patient Weight 05/10/17 23:59 Weight 45 kg - Head Head exam: Present: normal inspection - Respiratory Respiratory exam: Present: CTAB - Cardiovascular Cardiovascular exam: Present: +S1 - GI/Abdominal GI/Abdominal exam: Present: soft (minimal tenderness with palpation in epigastric area) - Extremities Exam Extremities exam: Present: normal inspection Oncology: Obj Data - Labs CBC & Chem 7: 05/10/17 04:30 05/10/17 04:30 Labs: Laboratory Results - last 24 hr 05/09/17 05/09/17 05/09/17 06:59 11:31 16:11 WBC RBC Hgb Hct MCV MCH MCHC RDW Plt Count MPV Immature Gran % Seg Neutrophils % Lymphocytes % Monocytes % Eosinophils % Basophils % Neutrophils # Lymphocytes # Monocytes # Eosinophils # Basophils # Sodium Potassium Chloride Carbon Dioxide BUN Creatinine Est GFR ( Amer) Est GFR (Non-Af Amer) BUN/Creatinine Ratio Glucose POC Glucose 105 H 136 H 110 H Calculated Osmolality Calcium Phosphorus Magnesium 05/10/17 05/10/17 04:30 04:30 WBC 6.4 RBC 4.33 Hgb 13.2 Hct 38.0 MCV 87.8 MCH 30.5 MCHC 34.7 RDW 12.2 Plt Count 263 MPV 8.9 L Immature Gran % 0.2 Seg Neutrophils % 70.4 Lymphocytes % 18.1 Monocytes % 10.5 Eosinophils % 0.5 Basophils % 0.3 Neutrophils # 4.5 Lymphocytes # 1.2 Monocytes # 0.7 Eosinophils # 0.0 Basophils # 0.0 Sodium 137 Potassium 3.9 Chloride 99 Carbon Dioxide 33 H BUN 4 L Creatinine 0.48 L Est GFR ( Amer) > 60 Est GFR (Non-Af Amer) > 60 BUN/Creatinine Ratio 8 Glucose 122 H POC Glucose Calculated Osmolality 282 Calcium 9.2 Phosphorus 3.6 Magnesium 1.9 - ABG Interpretation ABG results: PT/INR, D-dimer PT 12.4 Seconds (9.4-12.1) H 05/07/17 04:29 Consult Discharge Plan - Plan Referrals: Kelsea Kauffman GOLF COURSE STARTER [Advanced Practice Nurse] - 05/15/17 1:00 pm
[2017-05-10 13:14] LABS: Bilirubin,Urine Negative (Negative); Blood,Urine Negative (Negative); Clarity,Urine Turbid (Clear); Color,Urine Yellow (Yellow); Glucose,Urine (UA) Normal (Normal); Ketones,Urine 15 mg/dL (Negative); Leukocyte Esterase,Urine Negative (Negative); Nitrite,Urine Negative (Negative); PH,Urine 8.5 pH Units (5.0-8.0); Protein,Urine Negative (Neg-Trace); Specific Gravity,Urine 1.014 (1.010-1.025); Urobilinogen,Urine Normal (Normal)
[2017-05-10 13:20] LABS: Amorphous Sediment,Urine Few (Few); Bacteria,Urine Few per hpf (None-Few); RBC,Urine 0-3 per hpf (0-3); Squamous Epithelial Cell,Urine Few per lpf (None-Few); WBC,Urine 0-3 per hpf (0-3)
[2017-05-10] MEDS: ALPRAZolam 0.25 MG TABLET PO PRN (21:53)
[2017-05-11 03:05] LABS: Basophils % 0.2 %; Eosinophils # 0.1 K/mcL (0.0-0.6); Eosinophils % 1.2 %; Hematocrit 38.3 % (35.3-44.9); Hemoglobin 13.1 g/dL (11.5-15.4); Immature Granulocytes % 0.2 % (0-4); Lymphocytes # 1.9 K/mcL (0.6-4.6); Lymphocytes % 35.6 %; Mean Corpuscular HGB Conc 34.2 g/dL (31.6-35.5); Mean Corpuscular Hemoglobin 30.8 pg (28.0-33.3); Mean Corpuscular Volume 90.1 fL (83.0-100.0); Mean Platelet Volume 9.3 fL (9.4-12.4); Monocytes # 0.6 K/mcL (0.0-1.3); Monocytes % 12.1 %; Neutrophils # 2.6 K/mcL (1.6-8.9); Platelet Count 265 K/mcL (140-400); Red Blood Count 4.25 M/mcL (3.82-4.97); Red Cell Distribution Width 12.9 % (11.5-14.5); Segmented Neutrophils % 50.7 %
[2017-05-11 03:17] LABS: BUN/Creatinine Ratio 10 (6-26); Blood Urea Nitrogen 6 mg/dL (7-20); Calcium 9.5 mg/dL (8.6-10.8); Carbon Dioxide 34 mEq/L (19-29); Chloride 97 mEq/L (98-109); Glucose 114 mg/dL (70-99); Magnesium 2.1 mg/dL (1.6-2.6); Osmolality,Calculated 278 (280-300); Phosphorous 4.3 mg/dL (2.3-4.7); Sodium 135 mEq/L (136-145); eGFR For African Americans > 60 (> 60); eGFR For Non-African Americans > 60 (> 60)
[2017-05-11 03:22] LABS: Potassium 5.2 mEq/L (3.5-4.5)
[2017-05-11] MEDS: *HR* HYDROcodone/Acet 5/325 mg TABLET PO PRN ×3 (04:12→12:28)
[2017-05-11] MEDS: *HR* Heparin 5,000 UNIT/ML VIAL SQ SCH (06:33)
[2017-05-11 07:18] VITALS: BP 126/77
[2017-05-11] MEDS: Sennosides/Docusate Sodium TABLET PO SCH (08:15)
[2017-05-11] MEDS: Nicotine 21 MG PATCH.TD24 TD SCH (08:16)
--- NOTE | 2017-05-11 10:50 | Discharge Summary ---
Date of Encounter: 05/11/17 Time of Encounter: 10:47 - Discharge Diagnosis (1) Constipation Priority: Secondary Status: Acute Qualifiers: Constipation type: drug induced constipation Qualified Code(s): K59.03 - Drug induced constipation (2) Abdominal pain Priority: Primary Status: Acute Qualifiers: Abdominal location: generalized Qualified Code(s): R10.84 - Generalized abdominal pain (3) Hypokalemia Priority: Secondary Status: Resolved (4) Pancreatic cancer metastasized to lung Priority: Secondary Status: Chronic (5) DVT prophylaxis Priority: Secondary Status: Acute (6) Hypomagnesemia Priority: Secondary Status: Resolved - Discharge Medications Prescriptions: HYDROcodone/Acet 5/325 mg [[place] 5-325 mg] 1 tab PO Q6HR PRN #20 tab PRN Reason: Severe Pain ALPRAZolam [Xanax 0.25 MG Tablet] 0.25 mg PO TID PRN #20 tab PRN Reason: Anxiety FentaNYL PATCH [Duragesic] 50 mcg TD Q72H #4 Sennosides/Docusate Sodium [Senna Plus] 2 each PO BID #30 tab Home Medications: Ondansetron HCl [Zofran] 4 mg PO Q4-6H PRN 04/14/17 [History] Nicotine Patch [Nicoderm] 21 mg TD DAILY #30 patch.td24 04/18/17 [Rx] Omeprazole 20 mg PO DAILY #30 tablet.dr 04/18/17 [Rx] Hydromorphone HCl [Dilaudid] 2 mg PO Q4H PRN #60 tablet 04/30/17 [Rx] ALPRAZolam [Xanax 0.25 MG Tablet] 0.25 mg PO TID PRN #20 tab 05/11/17 [Rx] FentaNYL PATCH [Duragesic] 50 mcg TD Q72H #4 05/11/17 [Rx] HYDROcodone/Acet 5/325 mg [[place] 5-325 mg] 1 tab PO Q6HR PRN #20 tab 05/11/17 [ Rx] Polyethylene Glycol 3350 [MiraLAX] 17 gm PO DAILY 05/11/17 [Rx] Sennosides/Docusate Sodium [Senna Plus] 2 each PO BID #30 tab 05/11/17 [Rx] Allergies/Adverse Reactions: Allergies No Known Allergies Allergy (Verified 04/13/17 22:17) Date of admission: 05/07/17 03:53 Primary care physician: PCP NO Consults: 05/07/17 04:04 Consult to Oncology [CONS] Routine Consulting Provider: [facility] Reason for Consult: pancreatic adenocarcinoma Call Completed: No 05/08/17 07:25 Consult to Interventional Radiology [CONS] Routine Consulting Provider: Radiology Interventional [facility] Reason for Consult: mediport placement Call Completed: Yes 05/09/17 09:03 PT [Consult to Physical Therapy] [CONS] Routine Comment: Evaluate, develop and implement POC Reason for Consult: Strengthening and conditioning needs for home. Discharging clinician: Catarina Albarran Anticipated date of discharge: 05/11/17 - Patient Status Disposition: Home, Self-Care Condition: Good Functional capacity at discharge: independent ambulation Overall status at discharge: patient is back to baseline - Discharge Instructions Follow Up With: Kelsea Kauffman MANAGER OF CUSTOMER BILLING [Advanced Practice Nurse] - 05/15/17 1:00 pm Additional Instructions: Please follow up with your primary care physician and oncologist within five days after your discharge from the hospital. Please obtain the prescribed lab work prior to your first follow up doctor's appointment (it could be your PCP or your Oncologist). Please ask your doctor to review your lab results and monitor your Potassium levels. Continue to hold your potassium supplements until your follow up appointment. Your home dose of fentanyl has been increased to 50mcg TD every 72 hours. Please hold off on taking Dilaudid and Percocet together. If the pain is appropriately controlled with Percocet, do not take the Dilaudid. Senna plus 2 tablets twice a day has been added to your home meds for severe constipation. Add Miralax daily as needed for constipation. Resume all other home medications as prescribed by your primary care physician. - Diet and Activity Activity: resume usual activities as tolerated Diet: advance to your usual diet Hospital course: Ms. Canas is a 71 year old female with PMH of metastatic pancreatic adenocarcinoma who was admitted for severe abdominal pain. Patient had a CT abd/ pelvis which demonstrated increase in size of her pancreatic mass. She was followed by oncology throughout the course of this hospitalization and had a mediport placed by IR. Her home pain medications were adjusted and she was placed on an aggressive laxative regimen for severe constipation. Patient was also initially noted to be hypokalemic which resolved and today she is noted to be hyperkalemic. Patient's pain is adequately controlled, she is tolerating PO intake, and has had multiple bowel movements. She is hemodynamically stable and will be discharged to home with follow up with her PCP and oncologist. Patient and demonstrate understanding of her diagnosis and agree with the discharge care and plan. - Time Spent with Patient Total time spent providing and/or coordinating discharge services: Greater than 30 minutes - Constitutional Vitals: Temp Pulse Resp BP Pulse Ox 97.9 F 83 17 126/77 96 05/11/17 07:14 05/11/17 07:14 05/11/17 07:14 05/11/17 07:14 05/11/17 08:30 General appearance: Present: cachectic, cooperative, A&O X 3 (frail appearing), pleasant, no acute distress, answers questions appropriately - Head Head exam: Present: atraumatic, normocephalic - Eye Eye exam: Present: normal appearance, conjuntiva pink, sclera anicteric - Respiratory Respiratory exam: Present: CTAB. Absent: accessory muscle use, rales, rhonchi, wheezes - Cardiovascular Cardiovascular exam: Present: RRR, +S1, +S2. Absent: diastolic murmur, gallop, rubs, systolic murmur - GI/Abdominal GI/Abdominal exam: Present: normal bowel sounds, soft, no peritoneal signs. Absent: distended, tenderness - Extremities Exam Extremities exam: Present: warm, radial pulses palpable and symetrical. Absent : calf tenderness, cyanotic, pedal edema - Neurological Exam Neurological exam: Present: alert, oriented X3 - Psychiatric Psychiatric exam: Present: normal affect, normal mood
[2017-05-11] MEDS: ALPRAZolam 0.25 MG TABLET PO PRN (12:28)
[2017-05-11] MEDS: *HR* FentaNYL PATCH 50 MCG PATCH TD SCH (12:28)
== END 2017-05-11 13:30 | disposition home or self-care (01) | DRG 436 ==
LOC: EMEROO 22:55 → 2NENU 22:55
PROVIDERS: ADMIT Internal Medicine; ATTEND Internal Medicine

== ENCOUNTER 2018-01-04 17:01 | Observation (INO) ==
[2018-01-04] MEDS ORDERED: 0.9 % Sodium Chloride 1,000 ML IVC ONE (17:34)
[2018-01-04] MEDS ORDERED: Ondansetron 4 MG/2 ML VIAL IVP ONE (17:36)
--- NOTE | 2018-01-04 17:41 | Emergency Department Note ---
Disposition Clinical Impression: Pancreatic mass, Generalized weakness, Hypokalemia Nausea & vomiting Qualifiers: Vomiting type: unspecified Vomiting Intractability: non-intractable Qualified Code(s): R11.2 - Nausea with vomiting, unspecified Leukopenia Qualifiers: Leukopenia type: unspecified Qualified Code(s): D72.819 - Decreased white blood cell count, unspecified Disposition: Admitted As Inpatient Condition: Undetermined Time of Disposition: 19:58 General Adult HPI - General Chief complaint: ED General Medical Stated complaint: pancreatic cancer, cant eat, probs dehydrated, Time Seen by Provider: 01/04/18 17:20 Source: patient, family Mode of arrival: ambulatory Limitations: no limitations Nursing Notes Reviewed: Yes Vital Signs Reviewed: Yes - History of Present Illness HPI Narrative: 72-year-old female with history of pancreatic cancer arrives to the emergency department with complaint of decreased eating, nausea or she is only able to keep fluids down. The patient last received chemotherapy roughly 3 weeks ago[address] [facility]. Unknown prognosis at this time. She does admit to chills and generalized weakness. Denies any specific fevers, cough, difficulty breathing, nuchal rigidity, dysuria. Patient denies any other complaints at this time. The patient is noted to be tachycardic on examination. Pain Scale: 7 - Related Data Home Medications Medication Instructions Recorded Confirmed Ondansetron HCl [Zofran] 4 mg PO Q4-6H PRN 04/14/17 12/16/17 Polyethylene Glycol 3350 [MiraLAX] 17 gm PO DAILY PRN 10/06/17 12/16/17 Sennosides/Docusate Sodium [Senna 2 each PO DAILY 12/16/17 12/16/17 Plus] Previous Rx's Medication Instructions Recorded Omeprazole 20 mg PO DAILY #30 tablet. 04/18/17 Lidocaine/Prilocaine [Emla] 1 appl TP AD #30 gm 05/13/17 Loperamide [Imodium] 2 mg PO AD PRN #30 capsule 05/13/17 Magic Mouthwash 5 ml PO Q4H PRN #240 ml 05/13/17 Ondansetron ODT [Zofran ODT] 4 mg SL Q6HR #20 tab.rapdis 05/13/17 Promethazine [Phenergan] 25 mg PO Q6HR PRN #30 tablet 05/13/17 Hydrocortisone 2.5% CREAM [Cortaid] 1 applic TP TID PRN #1 tube 07/11/17 Megestrol Acetate [Megace] 400 mg PO DAILY 30 Days udc 08/04/17 Hydromorphone HCl [Dilaudid] 1 tab PO Q6H PRN #120 tablet 08/11/17 Sertraline [Zoloft] 50 mg PO DAILY #30 tablet 09/18/17 ALPRAZolam [Xanax 0.25 MG Tablet] 0.25 mg PO BID PRN #60 tab 10/06/17 FentaNYL PATCH [Duragesic] 75 mcg TD Q72H 30 Days #10 12/08/17 patch.td72 Mirtazapine [Remeron] 1 tab PO HS #30 tablet 12/08/17 Back Brace [Back Stabilizer] 1 each MC DAILY #1 each 12/16/17 Lipase/Protease/Amylase [Creon Dr 1 each PO AD #270 cap 12/17/17 24,000 Units Capsule] Allergies Allergy/AdvReac Type Severity Reaction Status Date / Time No Known Allergies Allergy Verified 12/08/17 09:19 All systems ED: reviewed and negative except as stated. Constitutional: Reports: fever, chills, weakness, weight change ENT ED: Denies: ear pain, throat pain, congestion Cardiovascular: Denies: chest pain Respiratory: Denies: cough, dyspnea, wheezes, sputum production Gastrointestinal: Reports: abdominal pain (Chronic), nausea, vomiting. Denies: diarrhea, constipation, hematemesis, melena, hematochezia Genitourinary: Denies: urgency, dysuria Musculoskeletal: Reports: myalgia. Denies: back pain, neck pain, arthralgia Integumentary: Denies: rash Neurological: Reports: weakness. Denies: numbness, paresthesias, confusion Psychiatric: Reports: anxiety Past Medical History - Past Medical History Attestation: Yes The following information was validated with the patient. Source: patient, old records reviewed Medical history: Reports: cancer (Pancreatic), other Surgical history: Reports: Psychiatric history: Reports: no psych history - Social History Smoking Status: Former smoker Smokeless Tobacco Status: No Alcohol use: Reports: none Drug use: Reports: none Physical Exam - General Limitations: no limitations General appearance: alert, in no apparent distress - Head Head exam: atraumatic, normocephalic, normal inspection - Eye Eye exam: Present: normal appearance, PERRL, EOMI - ENT ENT exam: normal exam, normal oropharynx, mucous membranes dry - Neck Neck exam: Present: normal inspection, full ROM, trachea midline - Chest Chest inspection: Present: normal inspection, symmetric chest wall rise - Respiratory Respiratory exam: Present: normal lung sounds bilaterally - Cardiovascular Cardiovascular exam: Present: normal rhythm, tachycardia, normal heart sounds - Abdominal Exam Abdominal exam: Present: soft, tenderness (Generalized). Absent: distention, guarding, rebound, rigidity - Extremities Exam Extremities exam: Present: normal inspection, full ROM. Absent: tenderness, pedal edema - Neurological Exam Neurological exam: Present: alert, oriented X3, CN II-XII intact - Skin Skin exam: Present: warm, dry, intact, normal color Course Vital Signs Temperature 98.2 F 01/04/18 17:16 Pulse Rate 131 01/04/18 17:16 Respiratory Rate 16 01/04/18 17:16 Blood Pressure 126/89 01/04/18 17:16 O2 Sat by Pulse Oximetry 94 01/04/18 17:16 Temperature 98.2 F 01/04/18 17:16 Pulse Rate 131 01/04/18 17:16 Respiratory Rate 16 01/04/18 17:16 Blood Pressure 126/89 01/04/18 17:16 O2 Sat by Pulse Oximetry 94 01/04/18 17:16 Oxygen Delivery Oxygen Delivery Room Air Medical Decision Making - [facility] Narrative Medical decision making narrative: Workup in the emergency department demonstrates hypokalemia as well as a urinary tract infection and is nitrite positive. We will begin the patient on Rocephin. The patient will be admitted to the hospital at this time. Her nausea is well controlled. Accepted by Dr. Arnold. - Medical Records Medical records reviewed: Yes I reviewed the patient's medical records. - Lab Data Lab results reviewed: Yes I reviewed the patient's lab results. Result diagrams: 01/04/18 18:25 01/04/18 18:25 Lab Results 01/04/18 01/04/18 01/04/18 Range/Units 18:25 18:25 18:25 WBC 4.2 L (4.3-11.1) K/mcL RBC 4.03 (3.82-4.97) M/mcL Hgb 11.6 (11.5-15.4) g/dL Hct 36.1 (35.3-44.9) % MCV 89.6 (83.0-100.0) fL MCH 28.8 (28.0-33.3) pg MCHC 32.1 (31.6-35.5) g/dL RDW 15.4 H (11.5-14.5) % Plt Count 223 (140-400) K/mcL MPV 9.4 (9.4-12.4) fL Immature Gran % 0.5 (0-4) % Seg Neutrophils % 47.2 % Lymphocytes % 34.1 % Monocytes % 17.7 % Eosinophils % 0.0 % Basophils % 0.5 % Neutrophils # 2.0 (1.6-8.9) K/mcL Lymphocytes # 1.4 (0.6-4.6) K/mcL Monocytes # 0.7 (0.0-1.3) K/mcL Eosinophils # 0.0 (0.0-0.6) K/mcL Basophils # 0.0 (0.0-0.2) K/mcL Sodium 136 (136-145) mEq/L Potassium 2.9 L (3.5-5.1) mEq/L Chloride 98 (98-107) mEq/L Carbon Dioxide 28 (23-29) mEq/L BUN 7 L (8-23) mg/dL Creatinine 0.43 L (0.60-1.20) mg/dL Est GFR ( Amer) > 60 (> 60) Est GFR (Non-Af Amer) > 60 (> 60) BUN/Creatinine Ratio 16 (6-26) Glucose 123 H (70-105) mg/dL Calculated Osmolality 281 (280-300) Lactic Acid 2.1 (0.5-2.2) mmol/L Calcium 9.0 (8.6-10.3) mg/dL Magnesium 1.6 (1.6-2.6) mg/dL Total Bilirubin 0.4 (0.3-1.0) mg/dL AST 23 (13-39) Units/L ALT 15 (7-52) Units/L Alkaline Phosphatase 129 H (34-104) Units/L Troponin I < 0.03 (< 0.04) ng/mL Serum Total Protein 6.8 (6.4-8.9) g/dL Albumin 3.6 (3.5-5.7) g/dL Globulin 3.2 (2.4-3.5) g/dL Albumin/Globulin Ratio 1.1 (1.1-2.2) TSH 1.540 (0.340-5.600) mcIU/mL Urine Color (Yellow) Urine Clarity (Clear) Urine pH (5.0-8.0) pH Units Ur Specific [place] (1.010-1.025) Urine Protein (Neg-Trace) mg/dL Urine Glucose (UA) (Normal) mg/dL Urine Ketones (Negative) mg/dL Urine Blood (Negative) Urine Nitrite (Negative) Urine Bilirubin (Negative) Urine Urobilinogen (Normal) mg/dL Ur Leukocyte Esterase (Negative) Urine Microscopic RBC (0-3) per hpf Urine Microscopic WBC (0-3) per hpf Ur Squamous Epith Cells (None-Few) per lpf Urine Bacteria (None-Few) per hpf Hyaline Casts (None-Few) per lpf Ur Culture Indicated? (NO) 01/04/18 Range/Units 19:00 WBC (4.3-11.1) K/mcL RBC (3.82-4.97) M/mcL Hgb (11.5-15.4) g/dL Hct (35.3-44.9) % MCV (83.0-100.0) fL MCH (28.0-33.3) pg MCHC (31.6-35.5) g/dL RDW (11.5-14.5) % Plt Count (140-400) K/mcL MPV (9.4-12.4) fL Immature Gran % (0-4) % Seg Neutrophils % % Lymphocytes % % Monocytes % % Eosinophils % % Basophils % % Neutrophils # (1.6-8.9) K/mcL Lymphocytes # (0.6-4.6) K/mcL Monocytes # (0.0-1.3) K/mcL Eosinophils # (0.0-0.6) K/mcL Basophils # (0.0-0.2) K/mcL Sodium (136-145) mEq/L Potassium (3.5-5.1) mEq/L Chloride (98-107) mEq/L Carbon Dioxide (23-29) mEq/L BUN (8-23) mg/dL Creatinine (0.60-1.20) mg/dL Est GFR ( Amer) (> 60) Est GFR (Non-Af Amer) (> 60) BUN/Creatinine Ratio (6-26) Glucose (70-105) mg/dL Calculated Osmolality (280-300) Lactic Acid (0.5-2.2) mmol/L Calcium (8.6-10.3) mg/dL Magnesium (1.6-2.6) mg/dL Total Bilirubin (0.3-1.0) mg/dL AST (13-39) Units/L ALT (7-52) Units/L Alkaline Phosphatase (34-104) Units/L Troponin I (< 0.04) ng/mL Serum Total Protein (6.4-8.9) g/dL Albumin (3.5-5.7) g/dL Globulin (2.4-3.5) g/dL Albumin/Globulin Ratio (1.1-2.2) TSH (0.340-5.600) mcIU/mL Urine Color Yellow (Yellow) Urine Clarity Clear (Clear) Urine pH 8.5 H (5.0-8.0) pH Units Ur Specific [place] 1.017 (1.010-1.025) Urine Protein Trace (Neg-Trace) mg/dL Urine Glucose (UA) Normal (Normal) mg/dL Urine Ketones Negative (Negative) mg/dL Urine Blood Small H (Negative) Urine Nitrite Positive A (Negative) Urine Bilirubin Negative (Negative) Urine Urobilinogen Normal (Normal) mg/dL Ur Leukocyte Esterase Small H (Negative) Urine Microscopic RBC 5-15 H (0-3) per hpf Urine Microscopic WBC 30-50 H (0-3) per hpf Ur Squamous Epith Cells Few (None-Few) per lpf Urine Bacteria Moderate H (None-Few) per hpf Hyaline Casts Moderate H (None-Few) per lpf Ur Culture Indicated? YES A (NO) - Radiology Data Radiology results reviewed: Yes I reviewed the patient's radiology results. Abdomen/Pelvis CT 01/04/18 17:33 IMPRESSION: Interval increase in size of pancreatic mass compared to the study obtained on 11/12/2017. Other, stable findings as detailed above. D/ / Dong H. Marisela, MD / Enzo Antonio MD Interpreting Provider: Enzo Antonio MD Chest X-Ray 01/04/18 17:33 IMPRESSION: No acute abnormality. D/ / Christoph Manuel MD / Christoph Manuel MD Interpreting Provider: Christoph Manuel MD - EKG Data EKG #1 EKG attestation: Yes I reviewed and interpreted this EKG. EKG results narrative: Heart rate 116 bpm. Sinus tachycardia. No ST elevation but noted ST depression primarily in leads V3 and V4. Difficult to assess due to large amount of artifact. Attestation Statement - Attestation Attestation: I examined this patient and my medical decision-making was reviewed with the Resident Physician, Dr. Urena. I agree with the documented findings, disposition and treatment plan as described except to the extent set forth below. Patient is a 72-year-old white female who unfortunately is being currently treated for pancreatic cancer last chemotherapy was [place] 3 weeks ago. Patient has been having gradually worsening generalized weakness, nausea and intractable vomiting with tolerated minimal by mouth at this time, and subjective fevers and chills. Patient arrives appearing clinically dry with dry mucous membranes and lips, sinus tachycardia but with a stable blood pressure. Patient denies any abdominal pain, no chest pain or palpitations, no shortness of breath cough or upper respiratory symptoms, no back discomfort or flank pain and no urinary symptoms. I agree with patient's physical exam findings as documented. Blood pressure stable. Patient was placed on cardiac monitoring and continuous pulse ox and IV saline well was established and IV fluid boluses were initiated for tachycardia. Patient's EKG shows a sinus tachycardia with no acute ischemia. Labs were drawn and sent as well as urinalysis and chest x-ray was obtained. Patient with leukopenia, hypokalemia, and urinalysis shows a urinary tract infection. Patient's vital signs are improved after IV fluids heart rate currently 98 bpm. Antibiotics were initiated for urinary tract infection versus early Jamal although CT scan of her abdomen and pelvis did not show any evidence of hydronephrosis or perinephric stranding. Patient also shows increased size and pancreatic mass from prior imaging. Patient will be admitted for continued hydration, antibiotic therapy, potassium replacement and continued management.
[2018-01-04 18:54] LABS: Basophils % 0.5 %; Hematocrit 36.1 % (35.3-44.9); Hemoglobin 11.6 g/dL (11.5-15.4); Immature Granulocytes % 0.5 % (0-4); Lymphocytes # 1.4 K/mcL (0.6-4.6); Lymphocytes % 34.1 %; Mean Corpuscular HGB Conc 32.1 g/dL (31.6-35.5); Mean Corpuscular Hemoglobin 28.8 pg (28.0-33.3); Mean Corpuscular Volume 89.6 fL (83.0-100.0); Mean Platelet Volume 9.4 fL (9.4-12.4); Monocytes # 0.7 K/mcL (0.0-1.3); Monocytes % 17.7 %; Platelet Count 223 K/mcL (140-400); Red Blood Count 4.03 M/mcL (3.82-4.97); Red Cell Distribution Width 15.4 % (11.5-14.5); Segmented Neutrophils % 47.2 %
[2018-01-04 19:14] LABS: Bilirubin,Urine Negative (Negative); Blood,Urine Small (Negative); Clarity,Urine Clear (Clear); Color,Urine Yellow (Yellow); Glucose,Urine (UA) Normal (Normal); Ketones,Urine Negative (Negative); Leukocyte Esterase,Urine Small (Negative); Nitrite,Urine Positive (Negative); PH,Urine 8.5 pH Units (5.0-8.0); Protein,Urine Trace mg/dL (Neg-Trace); Specific Gravity,Urine 1.017 (1.010-1.025); Urobilinogen,Urine Normal (Normal)
[2018-01-04 19:16] LABS: Bacteria,Urine Moderate per hpf (None-Few); Hyaline Casts,Urine Moderate per lpf (None-Few); Squamous Epithelial Cell,Urine Few per lpf (None-Few); WBC,Urine 30-50 per hpf (0-3)
[2018-01-04 19:17] LABS: Alanine Aminotransferase 15 Units/L (7-52); Albumin 3.6 g/dL (3.5-5.7); Albumin/Globulin Ratio 1.1 (1.1-2.2); Alkaline Phosphatase 129 Units/L (34-104); Aspartate Amino Transferase 23 Units/L (13-39); BUN/Creatinine Ratio 16 (6-26); Bilirubin,Total 0.4 mg/dL (0.3-1.0); Blood Urea Nitrogen 7 mg/dL (8-23); Carbon Dioxide 28 mEq/L (23-29); Chloride 98 mEq/L (98-107); Globulin 3.2 g/dL (2.4-3.5); Glucose 123 mg/dL (70-105); Osmolality,Calculated 281 (280-300); Potassium 2.9 mEq/L (3.5-5.1); Sodium 136 mEq/L (136-145); Total Protein 6.8 g/dL (6.4-8.9); eGFR For African Americans > 60 (> 60); eGFR For Non-African Americans > 60 (> 60)
[2018-01-04 19:19] LABS: Troponin I < 0.03 ng/mL (< 0.04)
[2018-01-04] MEDS ORDERED: cefTRIAXone 2,000 MG in Water for inj. (sterile) 20 ML 20 ML IVP ONE (19:21)
[2018-01-04 19:42] LABS: Magnesium 1.6 mg/dL (1.6-2.6)
--- NOTE | 2018-01-04 21:53 | Internal Med History&Physical ---
Date of Encounter: 01/04/18 Time of Encounter: 21:47 Assessment and Plan (1) UTI (urinary tract infection) Current visit: Yes Status: Acute Continue IV ceftriaxone Qualifiers: Urinary tract infection type: acute cystitis Hematuria presence: without hematuria Qualified Code(s): N30.00 - Acute cystitis without hematuria (2) Nausea & vomiting Current visit: Yes Status: Acute Likely from pancreatic cancer and chemotherapy, will give IV fluids IV Zofran and Phenergan Qualifiers: Vomiting type: unspecified Vomiting Intractability: non-intractable Qualified Code(s): R11.2 - Nausea with vomiting, unspecified (3) Pancreatic neoplasm Current visit: Yes Status: Chronic Progressing pancreatic mass, will consult oncologist (4) Generalized weakness Current visit: Yes Status: Acute Multifactorial consult physical therapy (5) Hypokalemia Current visit: Yes Status: Acute (6) Abdominal pain Current visit: Yes Status: Chronic Chronic from pancratic cancer, continue home pain control medication Qualifiers: Abdominal location: generalized Qualified Code(s): R10.84 - Generalized abdominal pain Internal Medicine - H&P: HPI Chief complaint: Nausea and weakness Admitted From: Home Plans for Post Hospital Care: Home History of present illness: Ms. Canas is a 72 year old female who has history of pancreatic cancer, depression anxiety, presented to emergency room for not feeling well, nausea unable to keep food down for 7 days. Patient was recently diagnosis of pancreatic cancer, on chemotherapy every 3 weeks. Last chemotherapy was 3 weeks ago. She follows up with Dr. Robles. Patient developed nausea, dry heavies a week ago, unable to keep food down for 3 days. she feels extremely weak , not feeling well. She also c/o burning urination for 3 days ,denies hematuria. Patient has chronic back pain and abdominal pain from pancreatic cancer, has been on pain medications Dilaudid and fentanyl patch. She states the back pain is constant, aching 8 out of 10, upper abdominal pain 6 out of 10 , constant associated with nausea. He denies diarrhea no black stool loose stool. In the emergency room she was found potassium 2.9, UTI. Chest x-ray is negative. Abdominal CT shows increasing size of pancreatic mass. Patient is going to be admitted for nausea dehydration and hypokalemia, progressing pancreatic mass. Past Med Surg Social Fam HX - Past Medical History Medical history: cancer, other Psychiatric history: anxiety, depression - Past Surgical History Surgical History: - Social History Smoking Status: Former smoker Smokeless Tobacco Status: No Alcohol use: none Drug use: none - Family History Mother Living Status: Hx Family Cardiac Disorders: Yes (Heart Attack) Hx Family Endocrine Disorder: Yes (DM) Father Living Status: Hx Family Cardiac Disorders: No Hx Family Respiratory Disorders: No Hx Family Cancer: No Hx Family GI Disorders: No Hx Family Endocrine Disorder: No Hx Family Neuromuscular Disorders: No Hx Family Neurologic Disorders: No Hx Family HEENT Disorders: No Hx Family Autoimmune Disorders: No Internal Medicine - H&P: Meds Ondansetron HCl [Zofran] 4 mg PO Q4-6H PRN 04/14/17 [History] Omeprazole 20 mg PO DAILY #30 tablet.dr 04/18/17 [Rx] Lidocaine/Prilocaine [Emla] 1 appl TP AD #30 gm 05/13/17 [Rx] Loperamide [Imodium] 2 mg PO AD PRN #30 capsule 05/13/17 [Rx] Magic Mouthwash 5 ml PO Q4H PRN #240 ml 05/13/17 [Rx] Ondansetron ODT [Zofran ODT] 4 mg SL Q6HR #20 tab.rapdis 05/13/17 [Rx] Promethazine [Phenergan] 25 mg PO Q6HR PRN #30 tablet 05/13/17 [Rx] Hydrocortisone 2.5% CREAM [Cortaid] 1 applic TP TID PRN #1 tube 07/11/17 [Rx] Megestrol Acetate [Megace] 400 mg PO DAILY 30 Days udc 08/04/17 [Rx] Hydromorphone HCl [Dilaudid] 1 tab PO Q6H PRN #120 tablet 08/11/17 [Rx] Sertraline [Zoloft] 50 mg PO DAILY #30 tablet 09/18/17 [Rx] ALPRAZolam [Xanax 0.25 MG Tablet] 0.25 mg PO BID PRN #60 tab 10/06/17 [Rx] Polyethylene Glycol 3350 [MiraLAX] 17 gm PO DAILY PRN 10/06/17 [History] FentaNYL PATCH [Duragesic] 75 mcg TD Q72H 30 Days #10 patch.td72 12/08/17 [Rx] Mirtazapine [Remeron] 1 tab PO HS #30 tablet 12/08/17 [Rx] Back Brace [Back Stabilizer] 1 each MC DAILY #1 each 12/16/17 [Rx] Sennosides/Docusate Sodium [Senna Plus] 2 each PO DAILY 12/16/17 [History] Lipase/Protease/Amylase [Creon Dr 24,000 Units Capsule] 1 each PO AD #270 cap [Rx] 3 Allergy/AdvReac Type Severity Reaction Status Date / Time No Known Allergies Allergy Verified 12/08/17 09:19 All Systems PM: A 10-system review of systems was performed and is negative for pertinent findings except as documented above in the HPI. - Constitutional Vitals: Temp Pulse Resp BP Pulse Ox 98.6 F 100 16 148/83 96 01/04/18 21:39 01/04/18 21:39 01/04/18 21:39 01/04/18 21:39 01/04/18 21:39 General appearance: Present: cachectic, A&O X 3, pleasant Exam: CONSTITUTIONAL: Patient appears as an age appropriate email well developed, in no acute distress. EYES Clear sclerae, bilateral pupils are equal, reactive to light and accommodation. Extraocular movements are intact RESPIRATORY: No accessory muscle use, bilateral clear to auscultation, no wheezing, no crackles/rales. CARDIOVASCULAR: Regular heart rate, normal S1 and S2, no murmurs GASTROINTESTINAL: bowel sounds present, soft, +++ tenderness. No hepatosplenomegaly. No bilateral CVA tenderness MUSCULOSKELETAL: Joints in normal range of motion, no clubbing, no edema, no cyanosis. Bilateral peripheral pulses 2+ LYMPHATIC no lymphadenopathy in neck, groin and axilla bilaterally, no thyromegaly. NEUROLOGIC: CN II to XII are grossly intact, no focal neurological deficit. Deep tendon reflexes 2+ bilaterally. Normal light touch sensation to upper and lower extremity PSYCHIATRIC: Oriented x3, with good insight, mood is euthymic. No hallucinations or delusions. SKIN: Skin warm and dry, no rashes, no open wound. Internal Med - H&P Results - Labs CBC & Chem 7: 01/04/18 18:25 01/04/18 18:25
[2018-01-04] MEDS ORDERED: ALPRAZolam 0.25 MG TABLET PO PRN (21:56)
[2018-01-04] MEDS ORDERED: NON-FORMULARY MEDICATION 1 EACH EACH (Ondansetron Hcl [Zofran] 4 MG) PO PRN (21:56)
[2018-01-04] MEDS ORDERED: *HR* FentaNYL PATCH 75 MCG PATCH TD SCH (21:56)
[2018-01-04] MEDS ORDERED: Naloxone 0.4 MG/ML INJ IVP PRN (22:01)
[2018-01-04] MEDS ORDERED: Ondansetron ODT 4 MG TAB.RAPDIS PO PRN (22:45)
[2018-01-04] MEDS: Mirtazapine 15 MG TABLET PO SCH (23:34)
[2018-01-04] MEDS: *HR* Heparin 5,000 UNIT/ML VIAL SQ SCH (23:37)
[2018-01-04] MEDS: 0.9 % Sodium Chloride w KCl 20 MEQ/1,000 ML MLS IVC SCH (23:38)
[2018-01-04] MEDS: *HR* HYDROmorphone 4 MG TABLET PO PRN (23:40)
[2018-01-05] MEDS: *HR* Heparin 5,000 UNIT/ML VIAL SQ SCH (05:58)
[2018-01-05 06:22] LABS: BUN/Creatinine Ratio 12 (6-26); Blood Urea Nitrogen 4 mg/dL (8-23); Calcium 8.2 mg/dL (8.6-10.3); Carbon Dioxide 23 mEq/L (23-29); Chloride 110 mEq/L (98-107); Glucose 99 mg/dL (70-105); Magnesium 1.6 mg/dL (1.6-2.6); Osmolality,Calculated 287 (280-300); Potassium 3.6 mEq/L (3.5-5.1); Sodium 140 mEq/L (136-145); eGFR For African Americans > 60 (> 60); eGFR For Non-African Americans > 60 (> 60)
[2018-01-05 06:39] LABS: Basophils % 0.3 %; Eosinophils % 0.6 %; Hematocrit 32.4 % (35.3-44.9); Hemoglobin 10.1 g/dL (11.5-15.4); Lymphocytes # 1.4 K/mcL (0.6-4.6); Lymphocytes % 43.2 %; Mean Corpuscular HGB Conc 31.2 g/dL (31.6-35.5); Mean Corpuscular Hemoglobin 28.5 pg (28.0-33.3); Mean Corpuscular Volume 91.5 fL (83.0-100.0); Mean Platelet Volume 9.6 fL (9.4-12.4); Monocytes # 0.7 K/mcL (0.0-1.3); Monocytes % 21.8 %; Neutrophils # 1.1 K/mcL (1.6-8.9); Nucleated Red Blood Cells 1.3 /100 WBC (0); Platelet Count 182 K/mcL (140-400); Red Blood Count 3.54 M/mcL (3.82-4.97); Red Cell Distribution Width 15.6 % (11.5-14.5); Segmented Neutrophils % 34.1 %
[2018-01-05 07:22] LABS: Platelet Estimate Normal (Normal)
[2018-01-05] MEDS: *HR* HYDROmorphone 4 MG TABLET PO PRN ×2 (09:45→17:57)
[2018-01-05] MEDS: cefTRIAXone 2,000 MG in Water for inj. (sterile) 20 ML 20 ML IVPB SCH (09:46)
[2018-01-05] MEDS: 0.9 % Sodium Chloride w KCl 20 MEQ/1,000 ML MLS IVC SCH (09:48)
[2018-01-05] MEDS: Megestrol Acetate 400 MG/10 ML UDC PO SCH (09:48)
--- NOTE | 2018-01-05 15:06 | Oncology Inp Consult Note ---
Date of Encounter: 01/05/18 Time of Encounter: 15:03 Assessment and Plan (1) Generalized weakness Status: Acute Assessment and plan: from poor po intake, progressive cancer, and UTI. (2) Pancreatic cancer metastasized to lung Status: Chronic Assessment and plan: She has progressed. Discussed with the patient that once she recovers from this acute situation that she will discuss her next therapeutic option with her primary oncologist, Dr. Robles. (3) Nausea & vomiting Status: Acute Assessment and plan: Under control with the antiemetics for the moment. Likely in large part from the cancer itself possibly exacerbated by the UTI. Qualifiers: Vomiting type: unspecified Vomiting Intractability: non-intractable Qualified Code(s): R11.2 - Nausea with vomiting, unspecified (4) UTI (urinary tract infection) Status: Acute Assessment and plan: on abx. Qualifiers: Urinary tract infection type: acute cystitis Hematuria presence: without hematuria Qualified Code(s): N30.00 - Acute cystitis without hematuria - Data of Consult Requesting Physician: Panfilo Duenas Primary Care Provider: Kelsea Kauffman CNP - Consult Narrative Reason for consult: pancreatic cancer History of present illness: Ms. Canas is a 72 year old female with metastatic pancreatic cancer recently on FOLFIRINOX every 3 weeks with her last treatrrment being 3 weeks ago and was in NSOH until 1.5 weeks ago when she started to feel poorly. she nomrally feels poorly around that time afgter chemotherapyt. However, that malaise persisted. THen about 1 week ago, she started to have nausea. No significant vomiting but she had dry heaves on one occasion. She has lost about 6 pounds. She came to the hospital yesterday and was found to have UTI. CT scan also revealed significant progression of the pancreatic mass with it doubling in size. We are consulted regarding the pancreatic cancer. She has pain in the abdomen that has been going on for about a month Past Med Surg Social Fam HX - Past Medical History Medical history: cancer, other Psychiatric history: anxiety, depression - Past Surgical History Surgical History: - Social History Smoking Status: Former smoker Smokeless Tobacco Status: No Alcohol use: none Drug use: none - Family History Mother Living Status: Hx Family Cardiac Disorders: Yes (Heart Attack) Hx Family Endocrine Disorder: Yes (DM) Father Living Status: Hx Family Cardiac Disorders: No Hx Family Respiratory Disorders: No Hx Family Cancer: No Hx Family GI Disorders: No Hx Family Endocrine Disorder: No Hx Family Neuromuscular Disorders: No Hx Family Neurologic Disorders: No Hx Family HEENT Disorders: No Hx Family Autoimmune Disorders: No Medications and Allergies Ondansetron HCl [Zofran] 4 mg PO Q4-6H PRN 04/14/17 [History] Omeprazole 20 mg PO DAILY #30 tablet.dr 04/18/17 [Rx] Loperamide [Imodium] 2 mg PO AD PRN #30 capsule 05/13/17 [Rx] Magic Mouthwash 5 ml PO Q4H PRN #240 ml 05/13/17 [Rx] Promethazine [Phenergan] 25 mg PO Q6HR PRN #30 tablet 05/13/17 [Rx] Megestrol Acetate [Megace] 400 mg PO DAILY 30 Days udc 08/04/17 [Rx] Hydromorphone HCl [Dilaudid] 1 tab PO Q6H PRN #120 tablet 08/11/17 [Rx] Sertraline [Zoloft] 50 mg PO DAILY #30 tablet 09/18/17 [Rx] ALPRAZolam [Xanax 0.25 MG Tablet] 0.25 mg PO BID PRN #60 tab 10/06/17 [Rx] Polyethylene Glycol 3350 [MiraLAX] 17 gm PO DAILY PRN 10/06/17 [History] FentaNYL PATCH [Duragesic] 75 mcg TD Q72H 30 Days #10 patch.td72 12/08/17 [Rx] Mirtazapine [Remeron] 1 tab PO HS #30 tablet 12/08/17 [Rx] Sennosides/Docusate Sodium [Senna Plus] 2 each PO DAILY 12/16/17 [History] Lipase/Protease/Amylase [Nba Valdez 24,000 Units Capsule] 1 each PO AD #270 cap [Rx] 3 Allergy/AdvReac Type Severity Reaction Status Date / Time No Known Allergies Allergy Verified 12/08/17 09:19 Constitutional: Present: anorexia, malaise, weight loss Cardiovascular: Absent: chest pain Respiratory: Absent: dyspnea on exertion Gastrointestinal: Present: as per HPI. Absent: constipation, diarrhea Musculoskeletal: Present: muscle weakness, myalgias Neurological: Present: numbness, tingling Oncology - Exam - Constitutional Vitals: Temp Pulse Resp BP Pulse Ox 98.4 F 82 15 106/62 98 01/05/18 14:31 01/05/18 14:31 01/05/18 14:31 01/05/18 14:31 01/05/18 14:31 Oncology - Results Labs: Short CBC 01/05/18 Range/Units 04:57 WBC 3.2 L (4.3-11.1) K/mcL Hgb 10.1 L D (11.5-15.4) g/dL Hct 32.4 L (35.3-44.9) % Plt Count 182 (140-400) K/mcL Neutrophils # 1.1 L (1.6-8.9) K/mcL BMP 01/05/18 04:57 Sodium 140 Potassium 3.6 Chloride 110 H Carbon Dioxide 23 BUN 4 L Creatinine 0.33 L Glucose 99 Calcium 8.2 L Consult Discharge Plan - Plan Referrals: Kelsea Kauffman, WATER PLUMBER [Primary Care Provider] -
[2018-01-05] MEDS: *HR* LORazepam 0.5 MG TABLET PO SCH ×2 (15:30→21:12)
--- NOTE | 2018-01-05 17:41 | Internal Med Progress Note ---
Date of Encounter: 01/05/18 Time of Encounter: 11:00 - Assessment and plan (1) UTI (urinary tract infection) Current Visit: Yes Status: Acute Assessment and plan: Urinalysis positive for pyuria Will continue IV ceftriaxone; cultures pending Qualifiers: Urinary tract infection type: acute cystitis Hematuria presence: without hematuria Qualified Code(s): N30.00 - Acute cystitis without hematuria (2) Nausea & vomiting Current Visit: Yes Status: Acute Assessment and plan: Suspect secondary to chemotherapy treatment for metastatic pancreatic cancer Will continue Phenergan as needed Qualifiers: Vomiting type: unspecified Vomiting Intractability: non-intractable Qualified Code(s): R11.2 - Nausea with vomiting, unspecified (3) Pancreatic cancer metastasized to lung Current Visit: No Status: Chronic Assessment and plan: Patient with metastatic pancreatic cancer recently on FOLFIRINOX every 3 weeks with her last treatment being 3 weeks ago and was in NSOH until 1.5 weeks ago Hematology consulted and appreciate recommendations (4) DVT prophylaxis Current Visit: No Status: Acute Assessment and plan: Subcutaneous Lovenox - Subjective Interval history: Patient is a 72-year-old female who presents with nausea/vomiting and decreased by mouth intake and generalized weakness secondary to metastatic pancreatic cancer Patient found to have UTI - Constitutional Vitals: Temp Pulse Resp BP Pulse Ox 98.4 F 82 15 106/62 98 01/05/18 14:31 01/05/18 14:31 01/05/18 14:31 01/05/18 14:31 01/05/18 14:31 General appearance: Present: cachectic, A&O X 3, pleasant, no acute distress - Respiratory Respiratory exam: Present: CTAB. Absent: accessory muscle use, rales, rhonchi, wheezes - Cardiovascular Cardiovascular exam: Present: RRR, +S1, +S2. Absent: diastolic murmur, gallop, rubs, systolic murmur Internal Medicine: Result - Labs CBC & Chem 7: 01/05/18 04:57 01/05/18 04:57 Labs: Short CBC 01/05/18 Range/Units 04:57 WBC 3.2 L (4.3-11.1) K/mcL Hgb 10.1 L D (11.5-15.4) g/dL Hct 32.4 L (35.3-44.9) % Plt Count 182 (140-400) K/mcL Neutrophils # 1.1 L (1.6-8.9) K/mcL [facility] 01/05/18 04:57 Sodium 140 Potassium 3.6 Chloride 110 H Carbon Dioxide 23 BUN 4 L Creatinine 0.33 L Glucose 99 Calcium 8.2 L Consult Discharge Plan - Plan Referrals: Kelsea Kauffman, TRANSPORTATION CONSULTANT [Primary Care Provider] -
[2018-01-05] MEDS: Mirtazapine 15 MG TABLET PO SCH (21:12)
[2018-01-06] MEDS: *HR* Enoxaparin 40 MG/0.4 ML SYRINGE SQ SCH (06:03)
[2018-01-06] MEDS: Megestrol Acetate 400 MG/10 ML UDC PO SCH (08:42)
[2018-01-06] MEDS: Sennosides/Docusate Sodium TABLET PO SCH (08:42)
[2018-01-06] MEDS: *HR* LORazepam 0.5 MG TABLET PO SCH ×3 (08:42→21:12)
[2018-01-06] MEDS: cefTRIAXone 2,000 MG in Water for inj. (sterile) 20 ML 20 ML IVPB SCH (08:45)
--- NOTE | 2018-01-06 15:48 | Internal Med Progress Note ---
Date of Encounter: 01/06/18 Time of Encounter: 11:40 - Assessment and plan (1) Hypokalemia Current Visit: Yes Status: Resolved Assessment and plan: Improved. (2) Nausea & vomiting Current Visit: Yes Status: Acute Assessment and plan: Likely related to chemotherapy and underlying pancreatic cancer itself. Continue supportive care with when necessary Zofran and Phenergan. Qualifiers: Vomiting type: unspecified Vomiting Intractability: non-intractable Qualified Code(s): R11.2 - Nausea with vomiting, unspecified (3) UTI (urinary tract infection) Current Visit: Yes Status: Acute Assessment and plan: Urinalysis suggestive of infection, preliminary urine culture grows gram- negative rods. Continue IV Rocephin and follow up final culture. 2 sets of blood cultures negative. Qualifiers: Urinary tract infection type: acute cystitis Hematuria presence: without hematuria Qualified Code(s): N30.00 - Acute cystitis without hematuria (4) Pancreatic cancer metastasized to lung Current Visit: Yes Status: Chronic Assessment and plan: Oncology consult appreciated. Patient's pancreatic cancer is noted to be progressive, will follow up with primary oncologist. Continue pain control and supportive care, appetite stimulants; (5) Anxiety and depression Current Visit: Yes Status: Chronic - Subjective Interval history: Reports improvement in nausea. Improving appetite, tolerates oral diet. Continues to have cancer-related abdominal pain. No vomiting or diarrhea. - Constitutional Vitals: Temp Pulse Resp BP Pulse Ox 98.3 F 85 14 101/62 97 01/06/18 14:29 01/06/18 14:29 01/06/18 14:29 01/06/18 14:29 01/06/18 14:29 General appearance: Present: cachectic, A&O X 3, answers questions appropriately - Respiratory Respiratory exam: Present: CTAB. Absent: accessory muscle use, rales, rhonchi, wheezes - Cardiovascular Cardiovascular exam: Present: RRR, +S1, +S2. Absent: diastolic murmur, gallop, rubs, systolic murmur - GI/Abdominal GI/Abdominal exam: Present: normal bowel sounds, soft (Tenderness to light palpation in epigastrium and left upper quadrant), no peritoneal signs. Absent : distended, tenderness - Extremities Exam Extremities exam: Present: full ROM, warm, radial pulses palpable and symmetrical. Absent: calf tenderness, cyanotic, pedal edema - Neurological Exam Neurological exam: Present: CN II-XII intact, oriented X3, no focal deficits. Absent: pronater drift, facial droop, speech deficit Internal Medicine: Result - Labs CBC & Chem 7: 01/05/18 04:57 01/05/18 04:57 Consult Discharge Plan - Plan Referrals: Kelsea Kauffman, FLOATER OPERATOR [Primary Care Provider] -
[2018-01-06] MEDS: Mirtazapine 15 MG TABLET PO SCH (21:12)
--- NOTE | 2018-01-06 23:52 | Electrocardiograph Report ---
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
[2018-01-07] MEDS: *HR* HYDROmorphone 4 MG TABLET PO PRN (05:42)
[2018-01-07] MEDS: *HR* Enoxaparin 40 MG/0.4 ML SYRINGE SQ SCH (05:42)
[2018-01-07] MEDS: Sennosides/Docusate Sodium TABLET PO SCH (08:30)
[2018-01-07] MEDS: Megestrol Acetate 400 MG/10 ML UDC PO SCH (08:31)
[2018-01-07] MEDS: *HR* LORazepam 0.5 MG TABLET PO SCH (08:31)
[2018-01-07] MEDS: cefTRIAXone 2,000 MG in Water for inj. (sterile) 20 ML 20 ML IVPB SCH (08:32)
--- NOTE | 2018-01-07 11:06 | Discharge Summary ---
Date of Encounter: 01/07/18 Time of Encounter: 11:04 - Discharge Diagnosis (1) Hypokalemia Priority: Primary Status: Resolved (2) Nausea & vomiting Priority: Primary Status: Acute Qualifiers: Vomiting type: unspecified Vomiting Intractability: non-intractable Qualified Code(s): R11.2 - Nausea with vomiting, unspecified (3) UTI (urinary tract infection) Priority: Primary Status: Acute Qualifiers: Urinary tract infection type: acute cystitis Hematuria presence: without hematuria Qualified Code(s): N30.00 - Acute cystitis without hematuria (4) Pancreatic cancer metastasized to lung Priority: Secondary Status: Chronic (5) Anxiety and depression Priority: Secondary Status: Chronic Hospital course: Ms. Canas is a 72 year old female with history of metastatic pancreatic cancer , who was admitted with persistent nausea, vomiting, generalized weakness and urinary complaints. CT abdomen/pelvis showed interval increase in size of pancreatic mass, otherwise no acute findings. Oncology was consulted, recommended to follow up with her primary oncologist when she recovers from acute illness. She was noted to have hypokalemia, received potassium supplements with improvement. Also noted to have UTI, final urine culture grew Klebsiella pneumoniae. patient's symptoms are significantly better, she is medically stable for discharge with outpatient follow-up. Discharge discussed with: patient, family - Time Spent with Patient Total time spent providing and/or coordinating discharge services: Greater than 30 minutes (40 min) - Discharge Medications Prescriptions: Cefdinir [Omnicef] 300 mg PO BID #15 capsule Home Medications: Ondansetron HCl [Zofran] 4 mg PO Q4-6H PRN 04/14/17 [History] Omeprazole 20 mg PO DAILY #30 tablet. 04/18/17 [Rx] Loperamide [Imodium] 2 mg PO AD PRN #30 capsule 05/13/17 [Rx] Magic Mouthwash 5 ml PO Q4H PRN #240 ml 05/13/17 [Rx] Promethazine [Phenergan] 25 mg PO Q6HR PRN #30 tablet 05/13/17 [Rx] Megestrol Acetate [Megace] 400 mg PO DAILY 30 Days udc 08/04/17 [Rx] Hydromorphone HCl [Dilaudid] 1 tab PO Q6H PRN #120 tablet 08/11/17 [Rx] Sertraline [Zoloft] 50 mg PO DAILY #30 tablet 09/18/17 [Rx] ALPRAZolam [Xanax 0.25 MG Tablet] 0.25 mg PO BID PRN #60 tab 10/06/17 [Rx] Polyethylene Glycol 3350 [MiraLAX] 17 gm PO DAILY PRN 10/06/17 [History] FentaNYL PATCH [Duragesic] 75 mcg TD Q72H 30 Days #10 patch.td72 12/08/17 [Rx] Mirtazapine [Remeron] 1 tab PO HS #30 tablet 12/08/17 [Rx] Sennosides/Docusate Sodium [Senna Plus] 2 each PO DAILY 12/16/17 [History] Lipase/Protease/Amylase [Creon Dr 24,000 Units Capsule] 1 each PO AD #270 cap [Rx] Cefdinir [Omnicef] 300 mg PO BID #15 capsule 01/07/18 [Rx] Allergies/Adverse Reactions: 3 Allergy/AdvReac Type Severity Reaction Status Date / Time No Known Allergies Allergy Verified 12/08/17 09:19 Date of admission: 01/04/18 20:12 Primary care physician: Kelsea Kauffman CNP Consults: 01/04/18 21:32 Consult to Nutrition [CONS] Routine Comment: Consulting Provider: NUTRITION Reason for Dietary Consult: Other Other:: weight loss Consult to Nursery Hand [CONS] Routine Reason for SW Consult: Possible need for rehab, home health 01/04/18 22:03 Consult to Physical Therapy [CONS] Routine Comment: Evaluate, develop and implement POC Reason for Consult: weakness Does patient have active BEDREST order?: No Is patient medically & hemodynamically stable?: Yes Patient assessed for mobility or mobilized this visit?: Yes Consult to Physician [CONS] Routine Consulting Provider: Don Robles Reason for Consult: pancrstic cancer Call Completed: No Discharging clinician: Tammy Reed Anticipated date of discharge: 01/07/18 - Constitutional Vitals: Temp Pulse Resp BP Pulse Ox 97.9 F 99 14 110/55 99 01/07/18 09:12 01/07/18 09:12 01/07/18 09:12 01/07/18 09:12 01/07/18 09:12 General appearance: Present: cachectic, A&O X 3, answers questions appropriately - Cardiovascular Cardiovascular exam: Present: RRR, +S1, +S2. Absent: diastolic murmur, gallop, rubs, systolic murmur - Patient Status Disposition: Home Health Service Condition: Fair Functional capacity at discharge: independent ambulation Overall status at discharge: patient is progressing back to baseline - Discharge Instructions Follow Up With: Kelsea Kauffman CNP [Primary Care Provider] - Additional Instructions: F/up with PCP in 1-2 weeks F/up[ with Oncology as scheduled - Diet and Activity Activity: resume usual activities as tolerated Diet: low fat, low cholesterol, low salt diet
--- NOTE | 2018-01-07 11:14 | Physician Discharge Referral ---
Home Health/Hosp Referral Info Transfer to: Home Health Attending Provider: Tammy Reed Provider in Charge Post Discharge: PCP - Diagnosis (1) Hypokalemia Priority: Primary Status: Resolved (2) Nausea & vomiting Priority: Primary Status: Acute (3) UTI (urinary tract infection) Priority: Primary Status: Acute (4) Pancreatic cancer metastasized to lung Priority: Secondary Status: Chronic (5) Anxiety and depression Priority: Secondary Status: Chronic - Respiratory Orders Smoking Cessation: Smoking cessation has been advised. For more information, call the [place] [employer] Quit Line at 8-313-BGTR-NOW. - Diet/Nutrition Diet/Nutrition Orders: Cardiac - Activity Activity Orders: Ambulate - Services Needed Following services are medically necessary services: Nursing - Transfer Medications Prescriptions: Cefdinir [Omnicef] 300 mg PO BID #15 capsule Home Medications: Ondansetron HCl [Zofran] 4 mg PO Q4-6H PRN 04/14/17 [History] Omeprazole 20 mg PO DAILY #30 tablet. 04/18/17 [Rx] Loperamide [Imodium] 2 mg PO AD PRN #30 capsule 05/13/17 [Rx] Magic Mouthwash 5 ml PO Q4H PRN #240 ml 05/13/17 [Rx] Promethazine [Phenergan] 25 mg PO Q6HR PRN #30 tablet 05/13/17 [Rx] Megestrol Acetate [Megace] 400 mg PO DAILY 30 Days udc 08/04/17 [Rx] Hydromorphone HCl [Dilaudid] 1 tab PO Q6H PRN #120 tablet 08/11/17 [Rx] Sertraline [Zoloft] 50 mg PO DAILY #30 tablet 09/18/17 [Rx] ALPRAZolam [Xanax 0.25 MG Tablet] 0.25 mg PO BID PRN #60 tab 10/06/17 [Rx] Polyethylene Glycol 3350 [MiraLAX] 17 gm PO DAILY PRN 10/06/17 [History] FentaNYL PATCH [Duragesic] 75 mcg TD Q72H 30 Days #10 patch.td72 12/08/17 [Rx] Mirtazapine [Remeron] 1 tab PO HS #30 tablet 12/08/17 [Rx] Sennosides/Docusate Sodium [Senna Plus] 2 each PO DAILY 12/16/17 [History] Lipase/Protease/Amylase [Nba Valdez 24,000 Units Capsule] 1 each PO AD #270 cap [Rx] Cefdinir [Omnicef] 300 mg PO BID #15 capsule 01/07/18 [Rx] Allergies/Adverse Reactions: 3 Allergy/AdvReac Type Severity Reaction Status Date / Time No Known Allergies Allergy Verified 12/08/17 09:19 Certification: Further, I certify that my clinical findings support that this patient is homebound (i.e. absences from home require considerable and taxing effort and are for medical reasons or mandaeism services or infrequently or short duration when for other reasons) because: Homebound Reason: Patient requires assistance of a person or device to safely leave home, Leaving home requires considerable and taxing effort due to condition Attestation: My signature below is to certify that this patient is under my care and that I, or nurse practitioner, or a physician's esl instructional assistant working with me, has a face-to -face encounter with this patient.
[2018-01-07 11:38] VITALS: BP 100/64
== END 2018-01-07 13:04 | disposition home health service (06) ==
LOC: 3ANU 17:01 → EMEROO 17:01 → SUATTDRO 20:12 → 3ANU 20:19
PROVIDERS: ADMIT Hospitalist; ATTEND Internal Medicine